=== PATIENT | female | born 1965 | race Caucasian/White ===

== ENCOUNTER 2019-07-30 22:09 | Emergency (ER) | payer MEDICAID, SELFPAY ==
[2019-07-30 22:11] VITALS: BP 149/91; PULSE 73; RESP 18; TEMP 37.1; O2SAT 98; BMI 31.3
--- NOTE | 2019-07-30 22:14 | XR_ITS ---
WS: [id number] LEFT HIP HISTORY: injury COMPARISON: 05/17/2015 LEFT hip: No acute fracture or dislocation. Marked acetabular osteophytic ridging. Narrowing of the j oint space with cortical irregularity. Similar findings seen on 05/17/2015. Mild LEFT SI joint arthritis. XR/XR hip LT 2-3V wo/w pel* [id number] IMPRESSION: 1. No hip fracture. 2. Moderate osteoarthritis LEFT hip.
--- NOTE | 2019-07-30 22:14 | XR_ITS ---
WS: [id number] LEFT SHOULDER: 3 VIEW(S) TECHNIQUE: Internal and external rotation with Y view. HISTORY: injury COMPARISON: None available. Seen best on the Y view is a possible nondisplaced fracture involving the posterior humeral head. Oth erwise no abnormality other than mild degenerative narrowing of the glenohumeral joint and AC joint. Visualized lung is clear. XR/XR shoulder LT min 2V* [id number] IMPRESSION: Possible small avulsion fracture from the posterior humeral head seen only on t he Y view.
--- NOTE | 2019-07-30 22:14 | XR_ITS ---
WS: [id number] LEFT KNEE: 3 VIEW(S) TECHNIQUE: AP, oblique(s) and lateral. HISTORY: injury COMPARISON: 06/17/2017 No fracture or dislocation. No joint space narrowing or osteophytes. No joint effusion. No soft tissue abnormality. XR/XR knee LT 3V* [id number] IMPRESSION: Normal LEFT knee.
[2019-07-30 22:16] VITALS: BP 149/91; PULSE 74; RESP 17; O2SAT 96
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
[2019-07-30 23:07] VITALS: BP 150/79; PULSE 76; RESP 17; O2SAT 96
[2019-07-30 23:56] VITALS: BP 179/99; PULSE 86; RESP 18; O2SAT 100
== END 2019-07-31 00:11 | disposition home or self-care (01) ==
PROVIDERS: Emergency Provider Emergency Medicine; PCP Internal Medicine
DX: S70.02XA Contusion of left hip, initial encounter (principal); V89.2XXA Person injured in unspecified motor-vehicle accident, traffic, initial encounter
CPT/HCPCS: 12345; 73030; 73502; 73562; 99283; E0114

== ENCOUNTER 2019-08-04 17:40 | Emergency (ER) | payer MEDICAID, SELFPAY ==
[2019-08-04 18:03] VITALS: BP 137/82; PULSE 69; RESP 18; TEMP 36.7; O2SAT 95; BMI 31.3
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
--- NOTE | 2019-08-04 22:13 | ED_ITS ---
HPI - Extremity Problem General: Chief complaint: Extremity Injury, Lower Stated complaint: Left knee pain Time Seen by Provider: 08/04/19 20:26 Source: patient Mode of arrival: wheelchair Limitations: no limitations PFSH ED PFSH: Social History (Updated 08/01/19 @ 09:39 by Chelsea Moore LPN) Smoking and tobacco status: never smoked Alcohol intake: current Alcohol intake frequency: few times a month Marital status: Current occupational status: disabled Course Vital Signs: Vital signs: Vital Signs Temperature 98.0 F 08/04/19 18:03 Pulse Rate 70 08/04/19 22:22 Respiratory Rate 16 08/04/19 22:22 Blood Pressure 137/82 08/04/19 18:03 Pulse Oximetry 96 08/04/19 22:22 Discharge Plan Discharge Patient Disposition: Home, Self-Care Clinical Impression: Contusion, knee Qualifiers: Encounter type: subsequent encounter Laterality: left Qualified Code(s): S80.02XD - Contusion of left knee, subsequent encounter Condition: Stable Prescriptions: New diclofenac sodium 3 % gel 1 applic TOPICAL BID Qty: 100 RF: 0 acetaminophen 500 mg tablet 500 mg PO Q6H PRN (Reason: pain) Qty: 20 RF: 0 naproxen sodium 275 mg tablet 275 mg PO Q8H 5 Days Qty: 15 RF: 0 Discontinued nxldvtk-lmzvihdmxddmj-eqpevpip Tablet 1 tab PO Q6H PRNRF: 0 naproxen 500 mg tablet 500 mg PO BID PRN (Reason: pain) Qty: 60 RF: 0 No Action tizanidine 4 mg capsule 4 mg PO BID PRN (Reason: muscle spasticity) Qty: 20 RF: 0 (DME) Knee Support Brace Misc See Rx Instructions .ROUTE .MEDSUPPLY Qty: 1 RF: 0 Referrals: Gurmeet Epstein MD [Primary Care Provider] - Ryan Butterfield MD [Physician] - 08/06/19 Discharge Diet: Advance as tolerated Discharge Activity: Resume usual activity Discharge Date/Time: 08/04/19 22:24 Coding Level of Care Code ED Corporate Coordinator for Mike Lin
[2019-08-04 22:22] VITALS: PULSE 70; RESP 16; O2SAT 96
--- NOTE | 2019-08-06 10:47 | DCPLANNER ---
horse farm manager had message to schedule a follow up appointment for patient with ortho. horse farm manager called the ortho clinic, spoke with Pat, gave clinic patients information. horse farm manager was told that patients information would be printed and reviewed. Clinic will call patient with appointment information.
--- NOTE | 2019-08-07 09:13 | DCPLANNER ---
Patient had a follow up appointment scheduled for 08.06.19 with ortho, patient did attend the appointment.
== END 2019-08-04 22:24 | disposition home or self-care (01) ==
PROVIDERS: Emergency Provider Nurse Practitioner Family; PCP Internal Medicine
DX: S80.02XA Contusion of left knee, initial encounter (principal); V89.2XXA Person injured in unspecified motor-vehicle accident, traffic, initial encounter
CPT/HCPCS: 12345; 73562; 99281; 99282

== ENCOUNTER → 2019-08-06 13:34 | Outpatient (BNVA) | payer MEDICAID, SELFPAY | PROVIDERS: PCP Internal Medicine; Referring Provider Emergency Medicine; Visit Provider Orthopaedic Surgery | DX: S70.02XA Contusion of left hip, initial encounter (principal); S46.912A Strain of unspecified muscle, fascia and tendon at shoulder and upper arm level, left arm, initial encounter; S33.5XXA Sprain of ligaments of lumbar spine, initial encounter; S13.4XXA Sprain of ligaments of cervical spine, initial encounter; X58.XXXA Exposure to other specified factors, initial encounter; S80.02XA Contusion of left knee, initial encounter | CPT/HCPCS: 72040; 72100; 73502 ==

== ENCOUNTER 2019-11-18 23:13 | Emergency (ER) | payer MEDICAID, SELFPAY ==
[2019-11-18 23:23] VITALS: BP 158/96; PULSE 64; RESP 18; TEMP 36.8; O2SAT 97; BMI 31.3
--- NOTE | 2019-11-18 23:41 | ECG_ITS ---
[facility] Test Date: 2019-11-18 Pat Name: Suzie Chun Department: Room: Gender: Female Cardiothoracic Icu Rn: wyatt : 1965 Requested By: Morgan Juárez Order Number: [id number] Estrada MD: Jennifer Beard M.D. Measurements Intervals [place] Rate: 58 P: 61 NV: 215 QRS: -12 QRSD: 92 T: 52 QT: 450 QTc: 446 Interpretive Statements SINUS BRADYCARDIA WITH FIRST DEGREE AV BLOCK Compared to ECG 08/18/2015 12:03:13 First degree AV block now present Sinus rhythm no longer present Electronically Signed On 11-19-2019 19:58:22 CDT by Jennifer Beard M.D. [id number]
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
--- NOTE | 2019-11-18 23:53 | ED_ITS ---
HPI - Chest Pain General: Chief Complaint: Chest Pain Stated Complaint: fell/r leg l arm back pain Time Seen by Provider: 11/18/19 23:40 History of Present Illness: HPI narrative: Patient was going down the steps of her trailer when she slipped and fell, scraping her left calf of the leg and hitting her left rib area. Patient appears well. Patient appears in mild to moderate pain. Review of Systems General: Reports: 10 or more systems reviewed and unremarkable except in HPI and below Musc: Reports: back pain and other (Left rib pain, chest wall pain, low back pain, left shoulder pain) PFSH ED PFSH: Social History Smoking and tobacco status: never smoked Alcohol intake: current Alcohol intake frequency: few times a month Marital status: Current occupational status: disabled Physical Exam Const: COMMON NORMALS: no acute distress and patient oriented x3 GENERAL APPEARANCE: cooperative HENMT: COMMON NORMALS: normocephalic, TM's normal bilaterally and Normal external nose present HEAD & SCALP: normal to inspection and normocephalic NOSE: Normal external nose present TYMPANIC MEMBRANE: TM's normal bilaterally MOUTH: Normal oral and palatal mucosa present THROAT: posterior oropharynx normal Eye: GENERAL EYE: appearance normal, both eyes and all related structures Neck/C-Spine: COMMON NORMALS: full ROM Lymph: LYMPHATIC: no lymphadenopathy noted Chest: OTHER: Left lateral chest wall tenderness Resp: COMMON NORMALS: normal respiratory effort EFFORT & INSPECTION: Yes able to speak in complete sentences Cardio: COMMON NORMALS: regular rate and regular rhythm RATE: regular rate RHYTHM: regular rhythm GI: COMMON NORMALS: non-tender Back/Pelvis: LUMBAR SPINE/LOWER BACK: Yes paraspinal muscle tenderness Extremity: NARRATIVE EXTREMITY EXAM: Abrasion to the left calf Neuro: COMMON NORMALS: patient oriented x3 and moves all extremities Psych: COMMON NORMALS: mental status grossly normal and cooperative Skin: COMMON NORMALS: no rashes or lesions noted GENERAL SKIN EXAM: no rashes or lesions noted Course Vital Signs: Vital signs: Vital Signs Temperature 98.2 F 11/18/19 23:23 Pulse Rate 70 11/19/19 00:14 Respiratory Rate 18 11/19/19 00:14 Blood Pressure 127/89 11/19/19 00:14 Pulse Oximetry 97 11/19/19 00:14 MDM - Chest Pain MDM Narrative: Medical decision making narrative: Medical decision statement. Patient comes in today for complaints of injury sustained when she got dizzy and slipped and fell down her steps. Patient reported low back pain, left rib pain, and left shoulder pain. EKG noted a sinus bradycardia. Vital signs were normal otherwise. Tenderness was noted in the left rib area. Some reduced abduction of the left shoulder was noted. Differential diagnosis includes but not limited to arrhythmia, electrolyte abnormality, contusions, fracture. X-rays noted no fractures of the lumbar spine, shoulder, and ribs. Laboratory values were unremarkable. Reviewed exam with patient with recommendations for treatment and follow-up. Patient reported understanding. Patient was given medication for pain and discomfort. Patient had improvement in symptoms. Lab Data: Labs: Lab Results 11/19/19 11/19/19 Range/Units 00:30 00:30 WBC 6.4 (4.0-10.0) 10^3/ uL RBC 4.46 (4.1-5.3) 10^6/u L Hgb 13.3 (11.5-15.3) g/dL Hct 40.6 (37.0-47.0) % MCV 91.0 (81-99) fL MCH 29.8 (28.0-34.0) pg MCHC 32.8 (30.0-36.0) g/dL RDW 12.4 (12.1-15.1) % Plt Count 179 (130-400) 10^3/c mm MPV 10.0 (7.4-10.4) fL Neut % (Auto) 66.1 % Lymph % (Auto) 20.8 % [place] % (Auto) 8.4 % Eos % (Auto) 3.9 % Baso % (Auto) 0.3 % Neut # (Auto) 4.23 (1.8-7.7) 10^3/u L Lymph # (Auto) 1.3 (0.8-4.8) 10^3/u L [place] # (Auto) 0.5 (0.2-0.9) 10^3/u L Eos # (Auto) 0.3 (0.0-0.8) 10^3/u L Baso # (Auto) 0.0 (0.0-0.1) 10^3/u L Nucleated RBC % (a uto) 0 % Nucleated RBCs # 0.0 /100WBC Sodium 142 (136-145) mmol/L Potassium 4.0 (3.5-5.1) mmol/L Chloride 104 (98-107) mmol/L Carbon Dioxide 25 (22-29) mmol/L Anion Gap 17.0 (5-19) BUN 11 (6-20) mg/dL Creatinine 0.7 (0.5-0.9) mg/dL GFR Calculation 87.2 L (90-130) mL/min Glucose 119 H (65-115) mg/dL Calculated Osmolal ity 295 (285-295) mOsm/k g Calcium 9.0 (8.5-10.5) mg/dL Total Bilirubin Cancelled AST Cancelled ALT Cancelled Alkaline Phosphata se Cancelled Total Protein Cancelled Albumin Cancelled Globulin Cancelled EKG Data^: EKG 1: Attestation: I personally reviewed and interpreted this EKG as follows: (2346, sinus bradycardia with a rate of 58 bpm, regular, no ectopy or ST elevation noted.) Discharge Plan Discharge Patient Disposition: Home Clinical Impression: Lumbar back pain Sprain of acromioclavicular joint Qualifiers: Encounter type: initial encounter Laterality: left Qualified Code(s): S43.52XA - Sprain of left acromioclavicular joint, initial encounter Contusion of rib on left side Qualifiers: Encounter type: initial encounter Qualified Code(s): S20.212A - Contusion of left front wall of thorax, initial encounter Condition: Stable Prescriptions: New diclofenac potassium 50 mg tablet 50 mg PO Q8H PRN (Reason: pain) Qty: 7 RF: 0 No Action tizanidine 4 mg capsule 4 mg PO BID PRN (Reason: muscle spasticity) Qty: 20 RF: 0 (DME) Knee Support Brace Misc See Rx Instructions .ROUTE .MEDSUPPLY Qty: 1 RF: 0 diclofenac sodium 3 % gel 1 applic TOPICAL BID Qty: 100 RF: 0 acetaminophen 500 mg tablet 500 mg PO Q6H PRN (Reason: pain) Qty: 20 RF: 0 Discharge Orders: Discharge Order (Routine); Ordered 11/19/19 Ordered By: Morgan Dhillon Referrals: Gurmeet Epstein MD [Primary Care Provider] - Discharge Diet: Usual diet Discharge Activity: Increase activity as tolerated Patient Instructions: Contusion in Adults (ED) Activity Restrictions/Additional Instructions: Activity as tolerated. Ice and heat to the area of pain for comfort. Use acetaminophen or ibuprofen for further pain relief. Use hydrocodone for severe pain. Follow-up with primary care for further treatment and evaluation. Return to the emergency department for new concerns. Coding Level of Care Code ED [place] Supervisor for Mike Fwnicolas Exam Comprehensive
[2019-11-19 00:14] VITALS: BP 127/89; PULSE 70; RESP 18; O2SAT 97
[2019-11-19] MEDS: ketorolac 30 mg/mL INJ IM (00:47)
[2019-11-19] MEDS: HYDROcodone-acetaminophen 5-325 mg Tablet 1 TAB PO (00:48)
[2019-11-19 00:52] LABS: Basophils % 0.3 %; Eosinophils # 0.3 10^3/uL (0.0-0.8); Eosinophils % 3.9 %; Hematocrit 40.6 % (37.0-47.0); Hemoglobin 13.3 g/dL (11.5-15.3); Lymphocytes # 1.3 10^3/uL (0.8-4.8); Lymphocytes % 20.8 %; Mean Corpuscular HGB Conc 32.8 g/dL (30.0-36.0); Mean Corpuscular Hemoglobin 29.8 pg (28.0-34.0); Monocytes # 0.5 10^3/uL (0.2-0.9); Monocytes % 8.4 %; Neutrophils # 4.23 10^3/uL (1.8-7.7); Neutrophils % 66.1 %; Nucleated Red Blood Cells % 0 %; Platelet Count 179 10^3/cmm (130-400); Red Blood Count 4.46 10^6/uL (4.1-5.3); Red Cell Distribution Width 12.4 % (12.1-15.1); White Blood Count 6.4 10^3/uL (4.0-10.0)
[2019-11-19 01:04] LABS: Blood Urea Nitrogen 11 mg/dL (6-20); Carbon Dioxide 25 mmol/L (22-29); Chloride 104 mmol/L (98-107); Glomerular Filtration Rate 87.2 mL/min (90-130); Glucose 119 mg/dL (65-115); Osmolality Calculated 295 mOsm/kg (285-295); Sodium 142 mmol/L (136-145)
[2019-11-19 01:26] VITALS: BP 148/92; PULSE 68; RESP 16; TEMP 36.9; O2SAT 99
== END 2019-11-19 01:26 | disposition home or self-care (01) ==
PROVIDERS: Emergency Provider Nurse Practitioner Family; PCP Internal Medicine
DX: S20.212A Contusion of left front wall of thorax, initial encounter (principal); S43.52XA Sprain of left acromioclavicular joint, initial encounter; M54.5 Low back pain; W01.0XXA Fall on same level from slipping, tripping and stumbling without subsequent striking against object, initial encounter
CPT/HCPCS: 12345; 71101; 72100; 73030; 80048; 85025; 93005; 96372; 99281; 99283; J1885

== ENCOUNTER 2019-11-30 02:44 | Emergency (ER) | payer MEDICAID, SELFPAY ==
[2019-11-30] VITALS (7 sets, daily range): BP systolic 158–168; BP diastolic 82–101; PULSE 72–84; RESP 16–20; TEMP 36.9–37.3; O2SAT 92–95; BMI 31.3
--- NOTE | 2019-11-30 02:45 | XRR_ITS ---
PROCEDURE INFORMATION: Exam: XR Chest, 1 View Exam date and time: 11/30/2019 2:54 AM Age: 54 years old Clinical indication: Cough and shortness of breath; Additional info: Cough, SOB, chest pain TECHNIQUE: Imaging protocol: XR of the chest Views: 1 view. COMPARISON: CR XR ribs LT mn 3V w CXR1V [id number] 11/18/2019 11:59 PM FINDINGS: Lungs: Unremarkable. No consolidation. Pleural space: Unremarkable. No pleural effusion. No pneumothorax. Heart/Mediastinum: Unremarkable. No cardiomegaly. Bones/joints: Unremarkable. XR/XR chest 1V portable [id number] IMPRESSION: No acute findings.
--- NOTE | 2019-11-30 02:51 | ECG_ITS ---
[facility] Test Date: 2019-11-30 Pat Name: Suzie Chun Department: Room: Gender: Female Business Administration Teacher: : 1965 Requested By: Marcelo Brand Order Number: [id number] Sean MD: Blu Eric M.D. Measurements Intervals [place] Rate: 79 P: 56 MO: 190 QRS: -13 QRSD: 90 T: 64 QT: 382 QTc: 438 Interpretive Statements SINUS RHYTHM Compared to ECG 11/18/2019 23:46:23 Sinus bradycardia no longer present First degree AV block no longer present Electronically Signed On 11-30-2019 20:27:59 CDT by Blu Eric M.D. [email or web address] Enterprisesmercy [email or web address] [email or web address].[email or web address]/store/[id number]
--- NOTE | 2019-11-30 03:02 | W.ED.SOB ---
HPI - SOB/Dyspnea General: Chief Complaint: Shortness of Breath/Dyspnea Stated Complaint: cough/cp Time Seen by Provider: 11/30/19 02:46 Source: patient Mode of arrival: ambulatory Limitations: no limitations History of Present Illness: HPI Narrative: 54-year-old female states that she has been having cough along with wheezing along with some shortness of breath and nasal congestion over the last 3 to 4 days. She had low-grade fevers as well. She states she gets this every yea and does have a history of asthma. Patient states she is on steroids along with albuterol. She denies any worsening improving factors. She has had no known sick contacts. Associated symptoms: Reports fever(s); Deny abdominal pain, chest pain, nausea or vomiting Review of Systems Const: Reports: fever(s), chills and body aches Eyes: Denies: blurry vision or eye discomfort ENMT: Denies: throat pain or dental pain Card: Denies: chest pain Resp: Reports: dyspnea, non-productive cough and wheezing GI: Denies: abdominal pain, nausea, vomiting or diarrhea : Denies: dysuria Musc: Denies: neck pain or back pain Skin/Breast: Denies: rash Neuro: Denies: headache(s) Psych: Denies: depression David/Lymph: Denies: easy bruising All/Imm: Denies: urticaria PFSH ED PFSH: Social History Smoking and tobacco status: never smoked Alcohol intake: current Alcohol intake frequency: few times a month Marital status: Current occupational status: disabled Physical Exam Const: COMMON NORMALS: no acute distress, patient oriented x3 and healthy appearing HENMT: COMMON NORMALS: normocephalic and atraumatic HEAD & SCALP: normocephalic and atraumatic Eye: COMMON NORMALS: Equal, round and reactive pupils present and EOMs intact bilaterally PUPIL: Yes Equal, round and reactive pupils present Neck/C-Spine: COMMON NORMALS: full ROM and supple Chest: COMMONS NORMALS: normal inspection of the chest and normal palpation of entire chest wall Resp: COMMON NORMALS: normal respiratory effort, No retractions and No use of accessory muscles EFFORT & INSPECTION: Yes audible wheezes Cardio: COMMON NORMALS: regular rate, regular rhythm and No murmurs present (Cardio) RATE: regular rate RHYTHM: regular rhythm GI: COMMON NORMALS: Normal to inspection, nondistended, normoactive bowel sounds present, Soft to palpation, non-tender and no masses PALPATION: Yes Soft to palpation Extremity: COMMON NORMALS: normal to inspection and full ROM Neuro: COMMON NORMALS: patient oriented x3, moves all extremities and no focal motor deficits Psych: COMMON NORMALS: mental status grossly normal, Normal thought process present and cooperative THOUGHT PROCESS: Normal thought process present Skin: COMMON NORMALS: no rashes or lesions noted and no wounds GENERAL SKIN EXAM: no rashes or lesions noted Course Vital Signs: Vital signs: Vital Signs Temperature 99.1 F 11/30/19 02:47 Pulse Rate 75 11/30/19 05:00 Respiratory Rate 16 11/30/19 05:00 Blood Pressure 163/101 11/30/19 05:00 Pulse Oximetry 93 11/30/19 05:00 MDM - SOB/Dyspnea MDM Narrative: Medical decision making narrative: Suzie presents with cough congestion likely upper respiratory infection with asthma exacerbation. X-ray shows no pneumonia and blood work here is normal. She has no signs of pulmonary embolism. Patient's Covid is negative. Patient given IV steroids here and will prescribe albuterol for home. Patient is stable for discharge and return if worsening. Lab Data: Labs: Lab Results 11/30/19 11/30/19 11/30/19 Range/Units 03:30 03:30 03:30 WBC (4.0-10.0) 10^3/ uL RBC (4.1-5.3) 10^6/u L Hgb (11.5-15.3) g/dL Hct (37.0-47.0) % MCV (81-99) fL MCH (28.0-34.0) pg MCHC (30.0-36.0) g/dL RDW (12.1-15.1) % Plt Count (130-400) 10^3/c mm MPV (7.4-10.4) fL Neut % (Auto) % Lymph % (Auto) % [place] % (Auto) % Eos % (Auto) % Baso % (Auto) % Neut # (Auto) (1.8-7.7) 10^3/u L Lymph # (Auto) (0.8-4.8) 10^3/u L [place] # (Auto) (0.2-0.9) 10^3/u L Eos # (Auto) (0.0-0.8) 10^3/u L Baso # (Auto) (0.0-0.1) 10^3/u L Nucleated RBC % (a uto) % Nucleated RBCs # /100WBC Sodium (136-145) mmol/L Potassium (3.5-5.1) mmol/L Chloride (98-107) mmol/L Carbon Dioxide (22-29) mmol/L Anion Gap (5-19) BUN (6-20) mg/dL Creatinine (0.5-0.9) mg/dL GFR Calculation (90-130) mL/min Glucose (65-115) mg/dL Calculated Osmolal ity (285-295) mOsm/k g Calcium (8.5-10.5) mg/dL Total Bilirubin (0.15-1.2) mg/dL AST (0-32) U/L ALT (0-33) U/L Alkaline Phosphata se (35-105) IU/L Troponin T Baselin e (0-10) ng/L NT-Pro-B Natriuret Pep (0-125) pg/mL Total Protein (6.6-8.7) g/dL Albumin (3.5-5.2) g/dL Globulin (1.3-4.6) g/dL Influenza Type A A g Negative (Negative) Influenza Type B A g Negative (Negative) SARS-CoV-2 RNA (RT -PCR) Cancelled SARS-CoV-2 Ag (Rap id) Negative (Negative) 11/30/19 11/30/19 11/30/19 Range/Units 03:45 03:45 03:45 WBC 6.3 (4.0-10.0) 10^3/ uL RBC 4.32 (4.1-5.3) 10^6/u L Hgb 12.8 (11.5-15.3) g/dL Hct 39.8 (37.0-47.0) % MCV 92.1 (81-99) fL MCH 29.6 (28.0-34.0) pg MCHC 32.2 (30.0-36.0) g/dL RDW 12.5 (12.1-15.1) % Plt Count 126 L (130-400) 10^3/c mm MPV 11.1 H (7.4-10.4) fL Neut % (Auto) 76.0 % Lymph % (Auto) 11.4 % [place] % (Auto) 11.0 % Eos % (Auto) 0.9 % Baso % (Auto) 0.2 % Neut # (Auto) 4.82 (1.8-7.7) 10^3/u L Lymph # (Auto) 0.7 L (0.8-4.8) 10^3/u L [place] # (Auto) 0.7 (0.2-0.9) 10^3/u L Eos # (Auto) 0.1 (0.0-0.8) 10^3/u L Baso # (Auto) 0.0 (0.0-0.1) 10^3/u L Nucleated RBC % (a uto) 0 % Nucleated RBCs # 0.0 /100WBC Sodium 140 (136-145) mmol/L Potassium 4.0 (3.5-5.1) mmol/L Chloride 104 (98-107) mmol/L Carbon Dioxide 25 (22-29) mmol/L Anion Gap 15.0 (5-19) BUN 9 (6-20) mg/dL Creatinine 0.6 (0.5-0.9) mg/dL GFR Calculation 104.2 (90-130) mL/min Glucose 110 (65-115) mg/dL Calculated Osmolal ity 289 (285-295) mOsm/k g Calcium 8.8 (8.5-10.5) mg/dL Total Bilirubin 0.4 (0.15-1.2) mg/dL AST 25 (0-32) U/L ALT 17 (0-33) U/L Alkaline Phosphata se 108 H (35-105) IU/L Troponin T Baselin e 6 (0-10) ng/L NT-Pro-B Natriuret Pep 149 H (0-125) pg/mL Total Protein 7.0 (6.6-8.7) g/dL Albumin 4.2 (3.5-5.2) g/dL Globulin 2.8 (1.3-4.6) g/dL Influenza Type A A g (Negative) Influenza Type B A g (Negative) SARS-CoV-2 RNA (RT -PCR) SARS-CoV-2 Ag (Rap id) (Negative) Imaging Data^: CXR: Attestation: I personally reviewed and interpreted this imaging study as follows: My impression: no acute abnormality EKG Data^: EKG 1: Attestation: I personally reviewed and interpreted this EKG as follows: EKG Interpretation Date: 11/30/19 EKG interpretation time: 03:10 Interpretation: nsr hr [address] or t wave abnormalities qrs 90 qtc 416 EKG 2: Attestation: I personally reviewed and interpreted this EKG as follows: EKG Interpretation Date: 11/30/19 EKG interpretation time: 05:04 Interpretation: nsr hr [address] or t wave abnormalities qrs 93 qtc 418 Discharge Plan Discharge Patient Disposition: Home Clinical Impression: Acute upper respiratory infection Condition: Stable Prescriptions: New prednisone 50 mg tablet 50 mg PO DAILY Qty: 5 RF: 0 albuterol sulfate 90 mcg/actuation HFA aerosol inhaler 2 inh INHALATION Q6H PRN (Reason: shortness of breath or wheezing) Qty: 8 RF: 0 No Action tizanidine 4 mg capsule 4 mg PO BID PRN (Reason: muscle spasticity) Qty: 20 RF: 0 (DME) Knee Support Brace Misc See Rx Instructions .ROUTE .MEDSUPPLY Qty: 1 RF: 0 diclofenac sodium 3 % gel 1 applic TOPICAL BID Qty: 100 RF: 0 acetaminophen 500 mg tablet 500 mg PO Q6H PRN (Reason: pain) Qty: 20 RF: 0 diclofenac potassium 50 mg tablet 50 mg PO Q8H PRN (Reason: pain) Qty: 7 RF: 0 Discharge Orders: Discharge Order (Routine); Ordered 11/30/19 Ordered By: Marcelo Brand Referrals: Gurmeet Epstein MD [Primary Care Provider] - 1-3 days Discharge Diet: Advance as tolerated Discharge Activity: Resume usual activity Patient Instructions: Upper Respiratory Infection (ED) Coding Level of Care Code ED Supervisor [employer] for Chg Fwd Exam Comprehensive
[2019-11-30] MEDS: albuterol 8 gm MDI 2 PUFF INHALATION (03:10)
[2019-11-30] MEDS: dexamethasone 10 mg/mL INJ IVP (04:16)
[2019-11-30 04:30] LABS: Basophils % 0.2 %; Eosinophils # 0.1 10^3/uL (0.0-0.8); Eosinophils % 0.9 %; Hematocrit 39.8 % (37.0-47.0); Hemoglobin 12.8 g/dL (11.5-15.3); Lymphocytes # 0.7 10^3/uL (0.8-4.8); Lymphocytes % 11.4 %; Mean Corpuscular HGB Conc 32.2 g/dL (30.0-36.0); Mean Corpuscular Hemoglobin 29.6 pg (28.0-34.0); Mean Corpuscular Volume 92.1 fL (81-99); Mean Platelet Volume 11.1 fL (7.4-10.4); Monocytes # 0.7 10^3/uL (0.2-0.9); Neutrophils # 4.82 10^3/uL (1.8-7.7); Nucleated Red Blood Cells % 0 %; Platelet Count 126 10^3/cmm (130-400); Red Blood Count 4.32 10^6/uL (4.1-5.3); Red Cell Distribution Width 12.5 % (12.1-15.1); White Blood Count 6.3 10^3/uL (4.0-10.0)
--- NOTE | 2019-11-30 04:51 | ECG_ITS ---
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 Measurements Intervals [place] Rate: 69 P: 55 CT: 195 QRS: -6 QRSD: 93 T: 56 QT: 399 QTc: 429 Interpretive Statements SINUS RHYTHM Compared to ECG 11/30/2019 03:10:06 No significant changes Electronically Signed On 11-30-2019 20:37:01 CDT by Blu Eric M.D. [email or web address]
[2019-11-30 04:57] LABS: Influenza A by IFA Negative (Negative); Influenza B by IFA Negative (Negative)
[2019-11-30 04:58] LABS: Troponin(5th) Baseline 6 ng/L (0-10)
[2019-11-30 05:05] LABS: Alanine Aminotransferase 17 U/L (0-33); Albumin Level 4.2 g/dL (3.5-5.2); Alkaline Phosphatase 108 IU/L (35-105); Blood Urea Nitrogen 9 mg/dL (6-20); Calcium 8.8 mg/dL (8.5-10.5); Carbon Dioxide 25 mmol/L (22-29); Chloride 104 mmol/L (98-107); Globulin 2.8 g/dL (1.3-4.6); Glomerular Filtration Rate 104.2 mL/min (90-130); Glucose 110 mg/dL (65-115); NT Pro B Type Natriuretic Pept 149 pg/mL (0-125); Osmolality Calculated 289 mOsm/kg (285-295); Sodium 140 mmol/L (136-145); Total Bilirubin 0.4 mg/dL (0.15-1.2)
[2019-11-30] MEDS: acetaminophen 500 mg Tablet 1000 MG PO (05:05)
--- NOTE | 2019-11-30 05:07 | PC.NURSE ---
EKG done at 0505 and shown to ER doctor
[2019-11-30 05:09] LABS: SARS Covid-2 Antigen Negative (Negative)
[2019-11-30 05:20] LABS: Aspartate Amino Transferase 25 U/L (0-32)
[2019-11-30] MEDS: metoclopramide 5 mg/mL SDV 2 mL IVP (05:30)
[2019-11-30] MEDS: diphenhydrAMINE 50 mg/mL SDV 1mL 25 MG IVP (05:31)
== END 2019-11-30 05:48 | disposition home or self-care (01) ==
PROVIDERS: Emergency Provider Emergency Medicine; PCP Internal Medicine
DX: J06.9 Acute upper respiratory infection, unspecified (principal)
CPT/HCPCS: 12345; 71045; 80053; 83880; 84484; 85025; 87426; 87804; 93005; 94640; 96374; 96375; 99284; J1100; J1200; J2765; J3535

== ENCOUNTER 2019-12-10 09:07 | Emergency (ER) | payer MEDICAID, SELFPAY ==
[2019-12-10 09:13] VITALS: BP 158/103; PULSE 71; RESP 15; TEMP 36.6; O2SAT 97; BMI 69.0
[2019-12-10 09:21] VITALS: BP 157/103; PULSE 81; RESP 18; O2SAT 97
--- NOTE | 2019-12-10 09:25 | XRR_ITS ---
PROCEDURE INFORMATION: Exam: XR Chest, 1 View Exam date and time: 12/10/2019 9:27 AM Age: 54 years old Clinical indication: Cough and dyspnea and shortness of breath; Cough with hemorrhage; Left-sided chest pain; Prior surgery; Surgery type: Gb, hysto; Additional info: Dyspnea/cough/hemoptysis TECHNIQUE: Imaging protocol: XR of the chest Views: Frontal portable upright view of the chest. COMPARISON: CR XR chest 1V portable [id number] 11/30/2019 3:10 AM FINDINGS: Lungs: The lungs are clear bilaterally. The pulmonary vasculature is normal. Pleural space: No pleural effusion. No pneumothorax. Heart/Mediastinum: The heart is normal in size and contour. Mediastinum: Stable. Vasculature: Mild aortic arch atherosclerotic calcification without ectasia. Bones/joints: Stable. XR/XR chest 1V portable [id number] IMPRESSION: No acute cardiopulmonary abnormality identified.
--- NOTE | 2019-12-10 09:46 | ECG_ITS ---
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
--- NOTE | 2019-12-10 09:47 | CT_ITS ---
WS: [id number] CT NECK TECHNIQUE: Noncontrast CT of the neck with coronal and sagittal reformatted images. CLINICAL INFORMATION: neck pain COMPARISON: DLP: 652.[address] scans at [facility] use at least one of these dose optimization techniques: automat ed exposure control; mA and/or kV adjustment per patient size (includes targeted exams where dose is matched to clinical indication); or iterative reconstruction. FINDINGS: Parotid glands and submandibular glands are normal. Normal posterior nasopharynx. Normal parapharynge al fat. Tongue base appears normal. No evidence of supraglottic or glottic mass. Normal vallecula and piriform sinuses. Infraglottic airway is patent. Noncontrast thyroid gland appears normal. A few sli ghtly prominent but normal sized left cervical lymph nodes. No cervical lymphadenopathy. No supraclavicular lymphadenopathy. Lung apices are well aerated. Mastoi d air cells are well aerated. Left maxillary sinusitis with a small amount of fluid and mucosal thick ening left maxillary sinus. Partially visualized intracranial contents are unremarkable. CT/CT neck wo con [id number] IMPRESSION: 1. Salivary glands are normal. No evidence of supraglottic or glottic mass. 2. No cervical lymphadenopathy. A few slightly prominent but normal sized left cervical lymph nodes. 3. Mild left maxillary sinusitis. 4. No other significant findings. Notified Brent Mckeon DO at 12/10/2019 10:20 AM.
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
[2019-12-10 09:52] LABS: Basophils # 0.1 10^3/uL (0.0-0.1); Basophils % 0.6 %; Eosinophils # 0.2 10^3/uL (0.0-0.8); Eosinophils % 2.2 %; Hematocrit 43.8 % (37.0-47.0); Lymphocytes % 10.8 %; Mean Corpuscular Hemoglobin 29.6 pg (28.0-34.0); Mean Corpuscular Volume 92.6 fL (81-99); Mean Platelet Volume 9.7 fL (7.4-10.4); Monocytes # 0.6 10^3/uL (0.2-0.9); Monocytes % 5.7 %; Neutrophils # 7.56 10^3/uL (1.8-7.7); Neutrophils % 78.4 %; Nucleated Red Blood Cells % 0 %; Platelet Count 213 10^3/cmm (130-400); Red Blood Count 4.73 10^6/uL (4.1-5.3); Red Cell Distribution Width 12.5 % (12.1-15.1); White Blood Count 9.6 10^3/uL (4.0-10.0)
[2019-12-10 10:05] LABS: INR 0.96 (0.8-1.2)
[2019-12-10 10:11] LABS: Alanine Aminotransferase 20 U/L (0-33); Albumin Level 4.1 g/dL (3.5-5.2); Alkaline Phosphatase 112 IU/L (35-105); Anion Gap 12.1 (5-19); Aspartate Amino Transferase 15 U/L (0-32); Blood Urea Nitrogen 17 mg/dL (6-20); Calcium 9.4 mg/dL (8.5-10.5); Carbon Dioxide 29 mmol/L (22-29); Chloride 101 mmol/L (98-107); Globulin 3.3 g/dL (1.3-4.6); Glomerular Filtration Rate 87.2 mL/min (90-130); Glucose 96 mg/dL (65-115); Osmolality Calculated 287 mOsm/kg (285-295); Potassium 4.1 mmol/L (3.5-5.1); Sodium 138 mmol/L (136-145); Total Bilirubin 0.3 mg/dL (0.15-1.2); Total Protein 7.4 g/dL (6.6-8.7)
--- NOTE | 2019-12-10 10:19 | CT_ITS ---
WS: [id number] CT CERVICAL SPINE TECHNIQUE: Noncontrast CT of the cervical spine with coronal and sagittal reformatted images. CLINICAL INFORMATION: cervical radiculopathy COMPARISON: None. DLP: 646.[address] scans at [facility] use at least one of these dose optimization techniques: automat ed exposure control; mA and/or kV adjustment per patient size (includes targeted exams where dose is matched to clinical indication); or iterative reconstruction. FINDINGS: Slight exaggeration normal cervical lordosis. No high-grade central canal narrowing. C2-C3: Normal. C3-C4: Severe left bony foraminal narrowing. Moderate left facet arthropathy. Mild right foraminal na rrowing. C4-C5: Disc osteophytic ridging. Severe right and moderate to severe left bony foraminal narrowing. M oderate facet arthropathy. Spinal canal is patent. C5-C6: Disc osteophyte complex with a tiny central protrusion. Moderate to severe left and mild to mo derate right bony foraminal narrowing. Moderate facet arthropathy. Mild central canal stenosis. C6-C7: Disc osteophyte complex with endplate ridging. Moderate to severe bilateral bony foraminal gomez rowing. Mild to moderate facet arthropathy. Mild central canal stenosis. C7-T1: Normal Visualized posterior nasopharynx: Normal. Prevertebral soft tissues: Normal. CT/CT cervical spin wo con* [id number] IMPRESSION: 1. Slight exaggeration the normal cervical lordosis. No high-grade central can al narrowing. 2. Moderate to severe bony foraminal narrowing worse at left C3-C4, bilateral C4-5, left C5-C6, and bilateral C6-7. 3. Small central disc protrusion C5-C6 and C6-C7 with mild central canal steno sis.
--- NOTE | 2019-12-10 10:26 | PC.NURSE ---
Read and agree with assessment.
[2019-12-10 12:17] VITALS: BP 140/80; PULSE 75; RESP 15; O2SAT 98
[2019-12-10] MEDS: dexamethasone 4 mg/mL INJ 10 MG IM (12:17)
== END 2019-12-10 12:18 | disposition home or self-care (01) ==
PROVIDERS: Emergency Provider Family Medicine; PCP Internal Medicine
DX: M50.10 Cervical disc disorder with radiculopathy, unspecified cervical region (principal); R04.0 Epistaxis; J44.9 Chronic obstructive pulmonary disease, unspecified
CPT/HCPCS: 12345; 70490; 71045; 72125; 80053; 85025; 85610; 93005; 96372; 96375; 99282; 99283; J1100

== ENCOUNTER → 2019-12-18 14:43 | Outpatient (BNVA) | payer MEDICAID, SELFPAY | PROVIDERS: PCP Internal Medicine; Referring Provider Internal Medicine; Visit Provider Orthopaedic Surgery | DX: S42.293A Other displaced fracture of upper end of unspecified humerus, initial encounter for closed fracture (principal); X58.XXXA Exposure to other specified factors, initial encounter | CPT/HCPCS: 73030 ==

== ENCOUNTER 2019-12-31 14:32 | Outpatient (CLI) | payer MEDICAID, SELFPAY ==
--- NOTE | 2019-12-31 17:30 | MR_ITS ---
WS: [id number] MRI LEFT SHOULDER HISTORY: M79.622 - Pain in left upper arm COMPARISON: Shoulder radiograph 12/18/2019. TECHNIQUE: Multiplanar sequences of the shoulder joint are submitted. Mild AC joint bone and soft tissue hypertrophy. Small hypertrophic osteophytes and soft tissue encroa chment upon the supraspinatus tendon with minimal displacement. Narrowing of the AC joint with osteop hytes. There is an osteophyte from the undersurface of the acromion encroaching upon the supraspinatu s muscle over the humeral head. Hooklike osteophyte measures 3.2 mm with complete effacement of fat. There is adjacent subacromial fluid and increased signal within the supraspinatus tendon. No os acrom ion. Abnormal appearance of the biceps tendon in the bicipital groove. There is abnormal signal and s mall caliber biceps tendon. Abnormal signal in the distal 3 cm of the supraspinatus tendon. Increased signal due to the acromial osteophyte. Supraspinatus insertion site tear is moderate in size. Tear extends through the width of the tendon and there is fraying of the distal articular surface. There is also fraying along the burs al surface. Quality of the tendon distal to the acromial osteophyte is decreased. Mild atrophy of the supraspinatus muscle with no edema. Insertion site tear of the subscapularis tendon with additional fraying and tendinopathy. No atrophy. Subscapularis recess fluid. There are tiny loose bodies within the fluid. Infraspinatus tendon is pr obably intact. Cannot completely exclude small insertion site tear. There is loss of cartilage involving the humeral head irregularity of the cortical surface. Narrowing of the glenohumeral joint is mild. No definite labral tear. MR/MR shoulder LT wo con* [id number] IMPRESSION: 1. Hooklike osteophyte from the undersurface of acromion encroaching and impin ging upon the supraspinatus muscle and tendon. 2. Moderate insertion site tear of the supraspinatus tendon with a full-thickn ess tear and moderate tendinopathy. 3. Mild atrophy of the supraspinatus muscle without edema. 4. Insertion site tear subscapularis tendon is small. Possible insertion site tear of the infraspinatus tendon. 5. Loss of cartilage with subchondral cystic changes involving the humeral hea d. 6. Abnormal biceps tendon. Small caliber biceps tendon with abnormal signal is probably due to chronic tear and tendinopathy at the bicipital groove.
== END 2019-12-31 14:33 | disposition home or self-care (01) ==
LOC: RADSHAW 14:34
PROVIDERS: PCP Internal Medicine; Visit Provider Orthopaedic Surgery
DX: M25.712 Osteophyte, left shoulder (principal); M75.102 Unspecified rotator cuff tear or rupture of left shoulder, not specified as traumatic; R60.0 Localized edema
CPT/HCPCS: 73221

== ENCOUNTER → 2020-02-09 09:40 | Outpatient (BNVA) | payer MEDICAID, SELFPAY | PROVIDERS: PCP Internal Medicine; Visit Provider Orthopaedic Surgery | DX: Z01.812 Encounter for preprocedural laboratory examination (principal); Z20.828 Contact with and (suspected) exposure to other viral communicable diseases | CPT/HCPCS: 87635 ==

== ENCOUNTER 2020-02-14 06:09 | Day surgery (SDC) | payer MEDICAID, SELFPAY ==
[2020-02-13 12:06] VITALS: BMI 31.3
[2020-02-14] VITALS (11 sets, daily range): BP systolic 109–144; BP diastolic 66–103; PULSE 65–83; RESP 12–20; TEMP 36.2–36.6; O2SAT 94–100
[2020-02-14] MEDS: acetaminophen 500 mg Tablet 1000 MG PO (06:43)
[2020-02-14] MEDS: sodium chloride 0.9% 1,000 ML 30 ML IV (06:45)
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
[2020-02-14] MEDS: fentaNYL 50 mcg/mL INJ 2mL 100 MCG IVP (07:11)
--- NOTE | 2020-02-14 08:25 | ANES.PREANE2 ---
Pre-Anesthetic Assessment Pre-Anesthetic Assessment: Height/Weight: Height 1.7 m Weight 90.718 kg Temp Pulse Resp BP Pulse Ox 97.7 F 69 16 133/103 95 02/14/20 06:27 02/14/20 06:27 02/14/20 07:11 02/14/20 06:27 02/14/20 07:11 Preop Diagnosis: Rotator cuff tear left shoulder, impingement Proposed Procedure: Operation Date: 02/14/20 07:45 Proposed Procedures p left Shoulder Arthroscopy [id number] M75.102(Left) - Ryan Butterfield MD s Rotator Cuff Repair w/Subacromial Decompression(Left) - Ryan Butterfield MD Familial anesthetic complications: None Was Beta Meggan taken within 24 hours: N/A Last intake: Intake Last Liquid Date 02/13/20 Last Liquid Time 23:55 Last Solid Date 02/13/20 Last Solid Time 23:55 Social: Social History: No alcohol and No tobacco Exam: Pre-Anes Outpt Exam: alert, oriented x 3, clear to auscultation bilaterally and regular rate & rhythm Airway: Cervical ROM: WNL MP: 3 Dentition: Full Pulmonary: Pulmonary: Asthma and COPD Comments: hx bronchitis patient informed of increased risk of SOB w/ insterscalene CV/HEM: CV/HEM: HTN and WI (> 15 years ago) Comments: Mitral valve prolapse Patient states she 4x before, but says it was a long time ago and is unable to provide further details, other than they shocked her. Neuropsych: Neuropsych: Seizure and TIA Anesthetic Plan: ASA status: 3 Anesthesia: General and Regional (specify below) Other: Interscalene block (low volume) Risk of > 500 ml blood loss (7ml/kg in children): No Meds/Allergies Current Medications: Current Medications Generic Name Dose Route Start Last Admin Trade Name Freq PRN Reason Stop Dose Admin Sodium Chloride 1,000 mls @ 30 ml s/hr 02/14/20 06:15 02/14/20 06:45 Sodium Chloride 0.9% IV 02/15/20 06:14 30 mls/hr .Q24H ARNOLD Administration PFSH Anesthesia PFSH: Medical History COPD (chronic obstructive pulmonary disease) Social History Smoking and tobacco status: never smoked Alcohol intake: current Alcohol intake frequency: few times a month Marital status: Current occupational status: disabled History of recent travel: No Data Anesthesia Cardiac Studies: No Data to Display
--- NOTE | 2020-02-14 08:28 | ANES.PROC ---
Anesthesia Procedures Procedure/Date: 02/14/20 Nerve Block ^: Nerve Block 1: Main Anesthesia: general anesthesia Time Out Performed: Yes Consent: requested by attending/covering physician, from patient, from other, risks and benefits reviewed, patient agrees to proceed and emergency procedure Nerve block location: interscalene (L) Anesthesia monitors applied: pulse oximetry, EKG, BP cuff and oxygen Nerve block position: semi sitting Anesthetic Used: ropivicaine 0.5% and with decadron (1.3 mg) Amount of anesthesia used (mL): 10 Ultrasound used to: visualize and ID brachial plexus and visualize and ID interscalene groove Nerve Stimulator Used?: No Interscalene/Femoral BLK: 2 stimuplex 22 g needle used for position and inplane approach, visualize local anesthetic spread and no vascular puncture identified Injection: neg aspiration of heme and paresthesia +/- Patient Tolerated Procedure: well and no complications Complications: none
--- NOTE | 2020-02-14 10:22 | P.OP_ITS ---
Operative Report Date of procedure: February 14, 2020 Pre-op Diagnosis: Rotator cuff tear left shoulder, impingement Post-op diagnosis: same Post-op Findings: Same Procedure Done: Arthroscopic repair left rotator cuff, arthroscopic left subacromial decompression Implants: Masters and Nephew Helicoil 4.5 mm anchors with Ultrabraid x2, Masters and Nephew Helicoil knotless anchor x2 Pathology: none sent Surgeon: Ryan Butterfield Anesthesia: General and Nerve Block (Interscalene block) Estimated blood loss (mL): 20 Findings: The patient had a full-thickness tear of the supraspinatus tendon beginning at the anterior tendon insertion extending posteriorly approximately a centimeter and a half with approximately a centimeter and a half of tendon retraction. Tendon and bone quality was excellent. Condition: stable Disposition: PACU Procedure: The patient was taken to the operating room after she was given an interscalene block. She was given a general anesthesia and 2 g of Ancef. She was positioned in the lateral position with her left arm in 10 and later 20 pounds of traction due to its size. Posterior portal was made 2 cm inferior medial to the posterior lateral acromion. A scope cannula and trocar driven into the glenohumeral joint. An anterior working portal was made with a scalpel blade. The rotator cuff was inspected and the full-thickness tearing identified. The humeral head and glenoid were visualized and found to be free of degeneration. Labral attachments were healthy. The biceps tendon was absent. The scope was then moved to the subacromial space and the lateral portal performed to allow access to the cuff. Additional cannula was placed to the anterior portal. She had a very tight subacromial space with anterior curvatures to her acromion. A 5 5 acromionizer was introduced and approxi-5 mm of anterior and inferior acromion were removed to allow room for the repair and minimize compression on the rotator cuff repair. Utilizing an incisor shaver the footprint was debrided. Through a lateral stab wound a Masters and Nephew Helicoil 4.5 mm anchor with Ultratape was placed in the posterior medial footprint. The Masters and Nephew FirstPass suture passer was used to pass 1 limb through the posterior medial cuff tear approximately 7 mm from the edge and the second free suture approximately 5 mm anterior to that. A second anchor was placed in the anterior medial footprint and 2 sutures passed in identical fashion. Each suture was secured with a sliding Callahan knot and a single half hitch bringing the medial cuff to the medial debrided bone. One suture from each anchor was then passed through the lateral portal. Both sutures were passed through a Masters and Nephew Helicoil knotless anchor and the anchor placed on the posterior lateral edge of the footprint. This was repeated with the 2 remaining sutures with a knotless anchor placed in the anterior la teral footprint. The repair was probed and found to be stable. The shoulder was irrigated with saline. Portals were closed with 3-0 Prolene. Sterile dressings were applied. The patient was placed in a sling, extubated, and taken to recovery room in stable condition.
[2020-02-14] MEDS: oxyCODONE-APAP 5-325 mg Tablet 1 TAB PO (11:00)
--- NOTE | 2020-02-14 19:33 | ANE.PACU2 ---
Inpatient post-anesthesia follow up: Airway intact: Yes Vital signs: Temperature 97.8 F Pulse Rate 68 Respiratory Rate 16 Blood Pressure 113/75 Pulse Oximetry 95 Oxygen Delivery Me thod Room Air Oxygen Flow Rate 10 Fraction of Inspir ed Oxygen Hydration adequate: Yes Nausea and vomiting: No Pain level: 3 Mental status: Baseline
== END 2020-02-14 11:55 | disposition home or self-care (01) ==
PROVIDERS: PCP Internal Medicine; Visit Provider Orthopaedic Surgery
PROC: (CPT 29805; principal; 2020-02-14 07:45)
PROC: (CPT 29826; 2020-02-14 07:45)
DX: M75.102 Unspecified rotator cuff tear or rupture of left shoulder, not specified as traumatic (principal); M25.812 Other specified joint disorders, left shoulder; J44.9 Chronic obstructive pulmonary disease, unspecified; I10 Essential (primary) hypertension; I25.2 Old myocardial infarction; Z86.73 Personal history of transient ischemic attack (TIA), and cerebral infarction without residual deficits
CPT/HCPCS: 29826; 29827; 12345; 64415; 76942; 96374; 96375; C1713; J0690; J1100; J2405; J2704; J2710; J2795; J3010; J3490; J7030

== ENCOUNTER 2020-02-21 15:00 | Emergency (ER) | payer MEDICAID, SELFPAY ==
[2020-02-21 15:17] VITALS: BP 183/102; PULSE 68; RESP 20; TEMP 36.7; O2SAT 96; BMI 32.8
--- NOTE | 2020-02-21 17:21 | USCV_ITS ---
Adiel Suzie Age: 54 Gender: F : 1965 Exam Date: 02/21/2020 17:42 Ordering Phys: Iveth Selby MD [facility] [place] Technologist: Merlyn Akbar [place] [facility] [place] Indication: SWELLING HISTORY: Lower extremity swelling. PROCEDURES: Venous duplex imaging was performed in bilateral lower extremities. The following venous structures were evaluated: common femoral vein, profunda vein, proximal portion of the greater saphenous vein, superficial femoral vein, and the popliteal vein. In addition, the posterior tibial and peroneal trunk were evaluated. FINDINGS: Normal 2-D Doppler and augmentation and compressibility throughout the lower extremity venous structures. Additional imaging through the proximal calf veins also reveals no thrombus. Limited evaluation of the greater saphenous vein is patent with no thrombus.. CONCLUSIONS No evidence of right lower extremity DVT. No evidence of left lower extremity DVT. Chester Dave MD (Electronically Signed) Final Date: 21 February 2020 18:01 S
--- NOTE | 2020-02-21 18:17 | ED_ITS ---
HPI - General Adult General: Chief complaint: General Medical Stated complaint: L SHOULDER SURGERY ON 02.14.20,SWELLING IN BLE Time Seen by Provider: 02/21/20 17:08 Source: patient Mode of arrival: ambulatory Limitations: no limitations History of Present Illness: HPI narrative: The patient is a 54 year old woman who had left rotator cuff repair 7 days ago. She said that about 3 days ago she started noticed pain and swelling in her lower extremities. The pain continues and she is here to be seen. She denies any shortness of breath. No dizziness. Onset (ago): day(s) (3) Location: lower extremity Associated symptoms: Deny chest pain, confusion, cough, diaphoresis, decreased appetite, dyspnea, fevers/chills, headache(s), malaise, nausea, rash, palpitations, seizures, short of breath, syncope, vomiting or weakness Review of Systems General: Reports: 10 or more systems reviewed and unremarkable except in HPI and below Const: Denies: malaise or diaphoresis Eyes: Denies: change in vision or blurry vision ENMT: Denies: throat pain, enlarged tonsils, odynophagia, hoarseness, mouth pain or swelling of lips/tongue Card: Denies: chest pain, palpitations or syncope Resp: Denies: dyspnea GI: Denies: nausea or vomiting : Denies: flank pain, difficulty voiding, dysuria, urinary frequency, urinary urgency or urinary hesitancy Musc: Denies: neck pain, back pain or extremity swelling Skin/Breast: Denies: rash Neuro: Denies: headache(s) or confusion Endo: Denies: polyuria, polydipsia or tired all the time [facility] ED PFSH: Medical History (Updated 02/21/20 @ 19:39 by Iveth Selby MD, [facility] [place]) COPD (chronic obstructive pulmonary disease) Social History Smoking and tobacco status: never smoked Alcohol intake: current Alcohol intake frequency: few times a month Marital status: Current occupational status: disabled History of recent travel: No Physical Exam Const: COMMON NORMALS: no acute distress, average body habitus, patient oriented x3, no limitations, healthy appearing, alert and well nourished HENMT: COMMON NORMALS: normocephalic, atraumatic and moist oral mucous membranes HEAD & SCALP: normocephalic and atraumatic Neck/C-Spine: COMMON NORMALS: no meningeal signs and no JVD Resp: COMMON NORMALS: normal respiratory effort, No retractions, No use of accessory muscles, clear to auscultation bilaterally and percussion normal AUSCULTATION: clear to auscultation bilaterally PERCUSSION: percussion normal Cardio: COMMON NORMALS: no JVD, regular rate, regular rhythm, S1 normal heart sound present, S2 normal heart sound present, No gallops present (Cardio), No clicks present (Cardio), No murmurs present (Cardio), No rub (Cardio) and Peripheral pulses 2+ throughout RATE: regular rate RHYTHM: regular rhythm HEART SOUNDS: S1 normal heart sound present and S2 normal heart sound present PERIPHERAL PULSES: Peripheral pulses 2+ throughout GI: COMMON NORMALS: Normal to inspection, nondistended, normoactive bowel sounds present, Soft to palpation, non-tender, No hepatosplenomegaly present, no masses and no bruits PALPATION: Yes Soft to palpation and Yes No hepatosplenomegaly present : COMMON NORMALS: Yes no CVA tenderness BLADDER/KIDNEY EXAM: Yes no CVA tenderness Back/Pelvis: COMMON NORMALS: no CVA tenderness Extremity: COMMON NORMALS: normal to inspection, full ROM, capillary refill normal and no calf tenderness GENERAL: Yes edema Neuro: COMMON NORMALS: patient oriented x3 SENSORIUM/ORIENTATION: Yes alert MENINGEAL SIGNS: Yes no meningeal signs Skin: COMMON NORMALS: no rashes or lesions noted, no wounds, turgor normal, no jaundice, no petechiae and no mottling GENERAL SKIN EXAM: no rashes or lesions noted and turgor normal Course Reevaluation(s): Reevaluation #1: Discussed her lab and imaging findings with her. Negative for acute findings. Negative DVT. Since she has some pedal edema we will discharge her home with a 3-day supply of furosemide. She voiced understanding and is in agreement with the plan. Time: 19:36 Vital Signs: Vital signs: Vital Signs Temperature 98.1 F 02/21/20 15:17 Pulse Rate 68 02/21/20 15:17 Respiratory Rate 20 H 02/21/20 15:17 Blood Pressure 183/102 02/21/20 15:17 Pulse Oximetry 96 02/21/20 15:17 MDM - General Adult MDM Narrative: Medical decision making narrative: 54-year-old female who recently had rotator cuff surgery and has now developed bilateral lower extremity swelling. Venous Dopplers done were both negative for DVT. She is gi alexandru a short course of low-dose furosemide to reduce her pedal edema. Medical Records: Attestation: I reviewed the patient's medical records. Lab Data: Attestation: I reviewed the patient's lab results. Labs: Lab Results 02/21/20 02/21/20 Range/Units 18:39 18:39 WBC 6.1 (4.0-10.0) 10^3/ uL RBC 3.94 L (4.1-5.3) 10^6/u L Hgb 11.8 (11.5-15.3) g/dL Hct 36.7 L (37.0-47.0) % MCV 93.1 (81-99) fL MCH 29.9 (28.0-34.0) pg MCHC 32.2 (30.0-36.0) g/dL RDW 12.4 (12.1-15.1) % Plt Count 157 (130-400) 10^3/c mm MPV 9.9 (7.4-10.4) fL Neut % (Auto) 77.2 % Lymph % (Auto) 12.4 % [place] % (Auto) 7.1 % Eos % (Auto) 2.6 % Baso % (Auto) 0.2 % Neut # (Auto) 4.68 (1.8-7.7) 10^3/u L Lymph # (Auto) 0.8 (0.8-4.8) 10^3/u L [place] # (Auto) 0.4 (0.2-0.9) 10^3/u L Eos # (Auto) 0.2 (0.0-0.8) 10^3/u L Baso # (Auto) 0.0 (0.0-0.1) 10^3/u L Nucleated RBC % (a uto) 0 % Nucleated RBCs # 0.0 /100WBC Sodium 141 (136-145) mmol/L Potassium 3.6 (3.5-5.1) mmol/L Chloride 103 (98-107) mmol/L Carbon Dioxide 29 (22-29) mmol/L Anion Gap 12.6 (5-19) BUN 14 (6-20) mg/dL Creatinine 0.6 (0.5-0.9) mg/dL GFR Calculation 104.2 (90-130) mL/min Glucose 106 (65-115) mg/dL Calculated Osmolal ity 293 (285-295) mOsm/k g Calcium 9.1 (8.5-10.5) mg/dL Magnesium 1.8 (1.7-2.3) mg/dL Total Bilirubin 0.5 (0.15-1.2) mg/dL AST 21 (0-32) U/L ALT 17 (0-33) U/L Alkaline Phosphata se 97 (35-105) IU/L Total Protein 6.7 (6.6-8.7) g/dL Albumin 3.8 (3.5-5.2) g/dL Globulin 2.9 (1.3-4.6) g/dL Imaging Data^: US Vascular: Radiologist's impression: [address] [address] Ultrasound Report Signed Patient: Suzie Chun RUnsolitario #: [id number] : 1965Acct#:[id number] Age/Sex: 54 / FADM Date: 02/21/20 Loc: [facility] Hospital/Bed: Attending Dr: Ordering Provider/Ordering MD: Iveth Selby MD, [facility] [place] Date of Service: 02/21/20 Procedure(s): CV venous duplex [facility] [id number] Accession Number(s): [id number] Report Number: [id number] Suzie Chun Age: 54 Gender: F : 1965 Exam Date: 02/21/2020 17:42 Ordering Phys: Iveth Selby MD [facility] [place] Technologist: Merlyn Akbar [place] [facility] [place]: SWELLING HISTORY: Lower extremity swelling. PROCEDURES: Venous duplex imaging was performed in bilateral lower extremities. The following venous structures were evaluated: common femoral vein, profunda vein, proximal portion of the greater saphenous vein, superficial femoral vein, and the popliteal vein. In addition, the posterior tibial and peroneal trunk were evaluated. FINDINGS: Normal 2-D Doppler and augmentation and compressibility throughout the lower extremity venous structures. Additional imaging through the proximal calf veins also reveals no thrombus. Limited evaluation of the greater saphenous vein is patent with no thrombus.. CONCLUSIONS No evidence of right lower extremity DVT. No evidence of left lower extremity DVT. Chester Dave MD (Electronically Signed) Final Date: 21 February 2020 18:01 S Discharge Plan Discharge Patient Disposition: Home Clinical Impression: Bilateral leg edema Condition: Stable Prescriptions: New Lasix 20 mg tablet 20 mg PO DAILY Qty: 3 RF: 0 Continued hydrocodone-acetaminophen 5-325 mg tablet 1 tab PO Q6H PRN (Reason: pain) 14 Days Qty: 15 RF: 0 albuterol sulfate 90 mcg/actuation HFA aerosol inhaler 2 inh INHALATION Q6H PRN (Reason: shortness of breath or wheezing) Qty: 8 RF: 3 albuterol sulfate 2.5 mg /3 mL (0.083 %) solution for nebulization 2.5 mg INHALATION QID PRN (Reason: shortness of breath or wheezing) Qty: 75 RF: 3 (DME) nebulizer and compressor Device See Rx Instructions .ROUTE .MEDSUPPLY Qty: 1 RF: 0 Topamax 200 mg 200 mg PO DAILY@0800,1800 RF: 0 oxycodone 5 mg tablet 5 mg PO Q4H PRN (Reason: pain) Qty: 40 RF: 0 tizanidine 4 mg capsule 4 mg PO Q6H PRN (Reason: muscle spasticity) Qty: 30 RF: 0 gtdjqel-zuhuvkaulflpw-eibqnxmn 250-250-65 mg Tablet 1 tab PO Q6H PRN (Reason: Pain) RF: 0 Discharge Orders: Discharge ED (Routine); Ordered 02/21/20 Ordered By: Iveth Selby Referrals: Gurmeet Epstein MD [Primary Care Provider] - 1-3 days Discharge Diet: Usual diet Discharge Activity: Increase activity as tolerated Patient Instructions: Leg Edema (ED) Activity Restrictions/Additional Instructions: Return for any new or worsening symptoms. Follow-up with your primary care provider within 3 days. Take medication as prescribed. Elevate your leg to reduce swelling. Coding Level of Care Code ED Account Contact Associate for Chg Fwd Exam Comprehensive
[2020-02-21 19:01] LABS: Basophils % 0.2 %; Eosinophils # 0.2 10^3/uL (0.0-0.8); Eosinophils % 2.6 %; Hematocrit 36.7 % (37.0-47.0); Hemoglobin 11.8 g/dL (11.5-15.3); Lymphocytes # 0.8 10^3/uL (0.8-4.8); Lymphocytes % 12.4 %; Mean Corpuscular HGB Conc 32.2 g/dL (30.0-36.0); Mean Corpuscular Hemoglobin 29.9 pg (28.0-34.0); Mean Corpuscular Volume 93.1 fL (81-99); Mean Platelet Volume 9.9 fL (7.4-10.4); Monocytes # 0.4 10^3/uL (0.2-0.9); Monocytes % 7.1 %; Neutrophils # 4.68 10^3/uL (1.8-7.7); Neutrophils % 77.2 %; Nucleated Red Blood Cells % 0 %; Platelet Count 157 10^3/cmm (130-400); Red Blood Count 3.94 10^6/uL (4.1-5.3); Red Cell Distribution Width 12.4 % (12.1-15.1); White Blood Count 6.1 10^3/uL (4.0-10.0)
[2020-02-21 19:31] LABS: Alanine Aminotransferase 17 U/L (0-33); Albumin Level 3.8 g/dL (3.5-5.2); Alkaline Phosphatase 97 IU/L (35-105); Anion Gap 12.6 (5-19); Aspartate Amino Transferase 21 U/L (0-32); Blood Urea Nitrogen 14 mg/dL (6-20); Calcium 9.1 mg/dL (8.5-10.5); Carbon Dioxide 29 mmol/L (22-29); Chloride 103 mmol/L (98-107); Globulin 2.9 g/dL (1.3-4.6); Glomerular Filtration Rate 104.2 mL/min (90-130); Glucose 106 mg/dL (65-115); Magnesium 1.8 mg/dL (1.7-2.3); Osmolality Calculated 293 mOsm/kg (285-295); Potassium 3.6 mmol/L (3.5-5.1); Sodium 141 mmol/L (136-145); Total Bilirubin 0.5 mg/dL (0.15-1.2); Total Protein 6.7 g/dL (6.6-8.7)
== END 2020-02-21 20:07 | disposition home or self-care (01) ==
PROVIDERS: Emergency Provider Family Medicine; PCP Internal Medicine
DX: R60.0 Localized edema (principal); Z79.82 Long term (current) use of aspirin; J44.9 Chronic obstructive pulmonary disease, unspecified
CPT/HCPCS: 12345; 80053; 83735; 85025; 93970; 99281; 99283

== ENCOUNTER 2020-02-28 23:31 | Emergency (ER) | payer MEDICAID, SELFPAY ==
[2020-02-28 23:39] VITALS: BP 179/104; PULSE 70; RESP 18; TEMP 36.8; O2SAT 97; BMI 36.8
--- NOTE | 2020-02-28 23:43 | W.ED.CHESTPA ---
HPI - Chest Pain General: Chief Complaint: Chest Pain Stated Complaint: chest pain Time Seen by Provider: 02/28/20 23:43 History of Present Illness: HPI narrative: 54-year-old female comes in with chest pain. On/off for the past 3 days. She has been having some swelling in the lower extremities but she states that is doing better. Patient rates the pain 8/10. 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 Patient had rotator cuff surgery. Patient states that she has a history of COPD. She states she does wear oxygen but she is not improving at this time. She has had some nausea. She occasionally gets heartburn. She points to her epigastric region as the location of her pain. Patient does admit she has been taking naproxen twice a day. MD complaint: chest pain (She points to her epigastric region as the location of the pain.) Onset (ago): day(s) (On/off the past 3 days.) Timing of current episode: episodic Prior episodes: No Onset: during rest Pain location: epigastric Pain radiation: right arm Severity: severe Pain scale (0-10): 8 Quality: sharp Relieving factors: nothing Exacerbating factors: nothing Context: recent surgery (Left rotator cuff surgery) Associated symptoms: Reports leg edema (This has improved.) and nausea; Deny abdominal pain, diaphoresis, dyspnea, fever(s), palpitations, syncope or vomiting Treatment prior to arrival: none Review of Systems General: Reports: 10 or more systems reviewed and unremarkable except in HPI and below Narrative: 54-year-old female does not appear to be in any acute distress. She is wearing a sling on her left upper extremity. Const: Denies: fever(s), chills, body aches, night sweats or diaphoresis Card: Reports: chest pain (Current chief complaint), edema (Lower extremities-this has improved) and swelling of feet/ankles; Denies: palpitations, irregular heart rhythm, lightheadedness or syncope Resp: Denies: dyspnea, productive cough, wheezing, pain on inspiration or chest congestion GI: Reports: nausea and heartburn; Denies: abdominal pain or vomiting : Denies: flank pain Musc: Reports: extremity swelling (Bilateral lower extremity edema, this has improved.) and limited range of motion (Recent left rotator cuff repair); Denies: neck pain or extremity pain Psych: Denies: anxiety PFSH ED PFSH: Medical History (Updated 02/29/20 @ 02:49 by Behzad Nuñez) COPD (chronic obstructive pulmonary disease) Social History Smoking and tobacco status: never smoked Alcohol intake: current Alcohol intake frequency: few times a month Marital status: Current occupational status: disabled History of recent travel: No Physical Exam Const: COMMON NORMALS: no acute distress, patient oriented x3, no limitations, healthy appearing, alert and well nourished GENERAL APPEARANCE: cooperative, comfortable, well kempt and well developed; not in distress and not anxious HENMT: COMMON NORMALS: normocephalic and moist oral mucous membranes HEAD & SCALP: normocephalic Eye: COMMON NORMALS: Equal, round and reactive pupils present, EOMs intact bilaterally, conjunctivae normal and no scleral icterus GENERAL EYE: appearance normal, both eyes and all related structures CONJUNCTIVA: Yes conjunctivae normal PUPIL: Yes Equal, round and reactive pupils present Neck/C-Spine: COMMON NORMALS: full ROM, no lymphadenopathy, supple, no meningeal signs and no JVD GENERAL: Yes normal visual inspection Chest: COMMONS NORMALS: normal inspection of the chest and normal palpation of entire chest wall CHEST: Yes abnormal inspection of the chest, Yes Symmetrical chest wall rise and No localized rib tenderness with anteroposterior compression Resp: COMMON NORMALS: normal respiratory effort, No retractions, No use of accessory muscles and clear to auscultation bilaterally EFFORT & INSPECTION: Yes able to speak in complete sentences, Yes symmetric chest movement, No abnormal respiratory pattern, No tachypneic, No respiratory distress and No decreased respiratory effort AUSCULTATION: clear to auscultation bilaterally Cardio: COMMON NORMALS: no JVD, regular rate and regular rhythm RATE: regular rate RHYTHM: regular rhythm GI: COMMON NORMALS: Normal to inspection, nondistended, normoactive bowel sounds present, Soft to palpation, No hepatosplenomegaly present and no masses INSPECTION: Yes normal to inspection and No abdominal distension AUSCULTATION: Yes normoactive bowel sounds PALPATION: Yes Soft to palpation, Yes Tenderness to palpation present (GI) (Reproducible epigastric tenderness noted) Details: other, No Guarding due to palpation present (GI), No Rigid due to palpation, Yes No hepatosplenomegaly present and No Pulsatile mass present : COMMON NORMALS: Yes no CVA tenderness BLADDER/KIDNEY EXAM: Yes no CVA tenderness Back/Pelvis: COMMON NORMALS: no CVA tenderness Extremity: NARRATIVE EXTREMITY EXAM: Status post left rotator cuff repair, patient has her left upper extremity in a sling GENERAL: Yes normal exam except as noted and No calf tenderness LEFT UPPER EXTREMITY: Yes shoulder joint (Increased pain with range of motion of the left shoulder) Left shoulder joint: No ROM and Yes neurovascular exam Neuro: COMMON NORMALS: patient oriented x3 SENSORIUM/ORIENTATION: Yes alert MENINGEAL SIGNS: Yes no meningeal signs Psych: COMMON NORMALS: mental status grossly normal, Normal thought process present, cooperative, normal affect and speech normal APPEARANCE: Yes grossly normal and Yes well kempt ATTITUDE: Yes calm and Yes engaged SPEECH: Yes normal speech THOUGHT PROCESS: Normal thought process present Course Vital Signs: Vital signs: Vital Signs Temperature 98.2 F 02/28/20 23:39 Pulse Rate 79 02/29/20 03:09 Respiratory Rate 18 02/29/20 03:09 Blood Pressure 143/89 02/29/20 03:09 Pulse Oximetry 99 02/29/20 03:09 MDM - Chest Pain Lab Data: Labs: Lab Results 02/29/20 02/29/20 02/29/20 Range/Units 00:24 00:24 00:24 WBC 3.0 L (4.0-10.0) 10^3/ uL RBC 4.27 (4.1-5.3) 10^6/u L Hgb 12.6 (11.5-15.3) g/dL Hct 39.4 (37.0-47.0) % MCV 92.3 (81-99) fL MCH 29.5 (28.0-34.0) pg MCHC 32.0 (30.0-36.0) g/dL RDW 13.1 (12.1-15.1) % Plt Count 170 (130-400) 10^3/c mm MPV 9.8 (7.4-10.4) fL Neut % (Auto) 61.8 % Lymph % (Auto) 22.5 % Fountain % (Auto) 12.8 % Eos % (Auto) 2.3 % Baso % (Auto) 0.3 % Neut # (Auto) 1.84 (1.8-7.7) 10^3/u L Lymph # (Auto) 0.7 L (0.8-4.8) 10^3/u L Fountain # (Auto) 0.4 (0.2-0.9) 10^3/u L Eos # (Auto) 0.1 (0.0-0.8) 10^3/u L Baso # (Auto) 0.0 (0.0-0.1) 10^3/u L Nucleated RBC % (a uto) 0 % Nucleated RBCs # 0.0 /100WBC Sodium 140 (136-145) mmol/L Potassium 3.7 (3.5-5.1) mmol/L Chloride 102 (98-107) mmol/L Carbon Dioxide 29 (22-29) mmol/L Anion Gap 12.7 (5-19) BUN 14 (6-20) mg/dL Creatinine 0.6 (0.5-0.9) mg/dL GFR Calculation 104.2 (90-130) mL/min Glucose 102 (65-115) mg/dL Calculated Osmolal ity 291 (285-295) mOsm/k g Calcium 8.8 (8.5-10.5) mg/dL Total Bilirubin 0.2 (0.15-1.2) mg/dL AST 26 (0-32) U/L ALT 24 (0-33) U/L Alkaline Phosphata se 103 (35-105) IU/L Troponin T Baselin e 6 (0-10) ng/L Troponin T 120 Min cher-ae heights (0-10) ng/L Delta Troponin T (0-10) ABS# NT-Pro-B Natriuret Pep 30 (0-125) pg/mL Total Protein 6.5 L (6.6-8.7) g/dL Albumin 4.0 (3.5-5.2) g/dL Globulin 2.5 (1.3-4.6) g/dL Lipase 44 (13-60) U/L 02/29/20 Range/Units 02:11 WBC (4.0-10.0) 10^3/ uL RBC (4.1-5.3) 10^6/u L Hgb (11.5-15.3) g/dL Hct (37.0-47.0) % MCV (81-99) fL MCH (28.0-34.0) pg MCHC (30.0-36.0) g/dL RDW (12.1-15.1) % Plt Count (130-400) 10^3/c mm MPV (7.4-10.4) fL Neut % (Auto) % Lymph % (Auto) % Fountain % (Auto) % Eos % (Auto) % Baso % (Auto) % Neut # (Auto) (1.8-7.7) 10^3/u L Lymph # (Auto) (0.8-4.8) 10^3/u L Fountain # (Auto) (0.2-0.9) 10^3/u L Eos # (Auto) (0.0-0.8) 10^3/u L Baso # (Auto) (0.0-0.1) 10^3/u L Nucleated RBC % (a uto) % Nucleated RBCs # /100WBC Sodium (136-145) mmol/L Potassium (3.5-5.1) mmol/L Chloride (98-107) mmol/L Carbon Dioxide (22-29) mmol/L Anion Gap (5-19) BUN (6-20) mg/dL Creatinine (0.5-0.9) mg/dL GFR Calculation (90-130) mL/min Glucose (65-115) mg/dL Calculated Osmolal ity (285-295) mOsm/k g Calcium (8.5-10.5) mg/dL Total Bilirubin (0.15-1.2) mg/dL AST (0-32) U/L ALT (0-33) U/L Alkaline Phosphata se (35-105) IU/L Troponin T Baselin e (0-10) ng/L Troponin T 120 Min cher-ae heights 6.00 (0-10) ng/L Delta Troponin T 0 (0-10) ABS# NT-Pro-B Natriuret Pep (0-125) pg/mL Total Protein (6.6-8.7) g/dL Albumin (3.5-5.2) g/dL Globulin (1.3-4.6) g/dL Lipase (13-60) U/L Discharge Plan Discharge Patient Disposition: Home Clinical Impression: Chest pain due to GERD, Bilateral edema of lower extremity Chest pain Qualifiers: Chest pain type: other chest pain Qualified Code(s): R07.89 - Other chest pain Nausea & vomiting Qualifiers: Vomiting type: unspecified Vomiting Intractability: non-intractable Qualified Code(s): R11.2 - Nausea with vomiting, unspecified Clinical Impression: (Ruled Out): Unstable angina pectoris Condition: Stable Prescriptions: New ondansetron HCl [Zofran] 4 mg tablet 4 mg PO Q6H PRN (Reason: nausea and vomiting) Qty: 14 RF: 0 omeprazole 40 mg capsule,delayed release(DR/EC) 40 mg PO DAILY 14 Days Qty: 14 RF: 0 No Action hydrocodone-acetaminophen 5-325 mg tablet 1 tab PO Q6H PRN (Reason: pain) 14 Days Qty: 15 RF: 0 albuterol sulfate 2.5 mg /3 mL (0.083 %) solution for nebulization 2.5 mg INHALATION QID PRN (Reason: shortness of breath or wheezing) Qty: 75 RF: 3 (DME) nebulizer and compressor Device See Rx Instructions .ROUTE .MEDSUPPLY Qty: 1 RF: 0 oxycodone-acetaminophen [Percocet] 5-325 mg tablet 1 tab PO Q4H PRN (Reason: pain) 7 Days Qty: 40 RF: 0 albuterol sulfate 90 mcg/actuation HFA aerosol inhaler 2 inh INHALATION Q6H PRN (Reason: shortness of breath or wheezing) Qty: 8 RF: 3 Topamax 200 mg 200 mg PO DAILY@0800,1800 RF: 0 oxycodone 5 mg tablet 5 mg PO Q4H PRN (Reason: pain) Qty: 40 RF: 0 tizanidine 4 mg capsule 4 mg PO Q6H PRN (Reason: muscle spasticity) Qty: 30 RF: 0 [id number]-qgsnytyyygkwj-iiovzzxs 250-250-65 mg Tablet 1 tab PO Q6H PRN (Reason: Pain) RF: 0 Lasix 20 mg tablet 20 mg PO DAILY Qty: 3 RF: 0 Discharge Orders: Discharge ED (Routine); Ordered 02/29/20 Ordered By: Behzad Nuñez Referrals: Gurmeet Epstein MD [Primary Care Provider] - Discharge Diet: Advance as tolerated Discharge Activity: Limit activity as instructed Patient Instructions: Chest Pain (ED), Gastroesophageal Reflux Disease (ED), Acute Nausea and Vomiting (ED), Leg Edema (ED) Activity Restrictions/Additional Instructions: Please keep a food diary. Coding Level of Care Code ED Attending Ambulatory Care for Chg Fwd Exam Comprehensive
--- NOTE | 2020-02-29 00:03 | XR_ITS ---
WS: [id number] Portable AP upright chest, 02/29/2020 Clinical Data: Chest pain Comparison: Portable chest, 12/10/2019. Findings: No nodules, masses or effusions are seen. The heart is normal. The pulmonary vascularity is not increased. No pneumonia or pneumothorax is seen. XR/XR chest 1V portable [id number] Impression: Negative chest.
[2020-02-29 00:50] LABS: Troponin(5th) Baseline 6 ng/L (0-10)
[2020-02-29 00:57] LABS: Basophils % 0.3 %; Eosinophils # 0.1 10^3/uL (0.0-0.8); Eosinophils % 2.3 %; Hematocrit 39.4 % (37.0-47.0); Hemoglobin 12.6 g/dL (11.5-15.3); Lymphocytes # 0.7 10^3/uL (0.8-4.8); Lymphocytes % 22.5 %; Mean Corpuscular Hemoglobin 29.5 pg (28.0-34.0); Mean Corpuscular Volume 92.3 fL (81-99); Mean Platelet Volume 9.8 fL (7.4-10.4); Monocytes # 0.4 10^3/uL (0.2-0.9); Monocytes % 12.8 %; Neutrophils # 1.84 10^3/uL (1.8-7.7); Neutrophils % 61.8 %; Nucleated Red Blood Cells % 0 %; Platelet Count 170 10^3/cmm (130-400); Red Blood Count 4.27 10^6/uL (4.1-5.3); Red Cell Distribution Width 13.1 % (12.1-15.1)
[2020-02-29 00:59] LABS: Alanine Aminotransferase 24 U/L (0-33); Alkaline Phosphatase 103 IU/L (35-105); Anion Gap 12.7 (5-19); Aspartate Amino Transferase 26 U/L (0-32); Blood Urea Nitrogen 14 mg/dL (6-20); Calcium 8.8 mg/dL (8.5-10.5); Carbon Dioxide 29 mmol/L (22-29); Chloride 102 mmol/L (98-107); Globulin 2.5 g/dL (1.3-4.6); Glomerular Filtration Rate 104.2 mL/min (90-130); Glucose 102 mg/dL (65-115); Lipase 44 U/L (13-60); NT Pro B Type Natriuretic Pept 30 pg/mL (0-125); Osmolality Calculated 291 mOsm/kg (285-295); Potassium 3.7 mmol/L (3.5-5.1); Sodium 140 mmol/L (136-145); Total Bilirubin 0.2 mg/dL (0.15-1.2); Total Protein 6.5 g/dL (6.6-8.7)
[2020-02-29 02:15] VITALS: PULSE 78; RESP 18; O2SAT 98
[2020-02-29 02:33] LABS: Troponin 5 2HR Delta 0 ABS# (0-10)
[2020-02-29 03:09] VITALS: BP 143/89; PULSE 79; RESP 18; O2SAT 99
== END 2020-02-29 03:10 | disposition home or self-care (01) ==
PROVIDERS: Emergency Provider Emergency Medicine; PCP Internal Medicine
DX: R07.89 Other chest pain (principal); R11.2 Nausea with vomiting, unspecified; K21.9 Gastro-esophageal reflux disease without esophagitis; R60.0 Localized edema; Z79.82 Long term (current) use of aspirin; J44.9 Chronic obstructive pulmonary disease, unspecified
CPT/HCPCS: 12345; 71045; 80053; 83690; 83880; 84484; 85025; 99282; 99283

== ENCOUNTER → 2020-05-27 10:54 | Outpatient (BNVA) | payer MEDICAID, SELFPAY | PROVIDERS: PCP Internal Medicine; Referring Provider Orthopaedic Surgery; Visit Provider Anesthesiology | DX: G89.29 Other chronic pain (principal); M25.512 Pain in left shoulder; M25.562 Pain in left knee; S13.4XXA Sprain of ligaments of cervical spine, initial encounter; S33.5XXA Sprain of ligaments of lumbar spine, initial encounter; X58.XXXA Exposure to other specified factors, initial encounter; S80.02XD Contusion of left knee, subsequent encounter; X58.XXXD Exposure to other specified factors, subsequent encounter; M54.40 Lumbago with sciatica, unspecified side; Z79.891 Long term (current) use of opiate analgesic | CPT/HCPCS: 99204; 99205 ==

== ENCOUNTER 2020-06-02 08:25 | Outpatient (CLI) | payer MEDICAID, SELFPAY ==
--- NOTE | 2020-06-02 08:45 | MR_ITS ---
WS: [id number] Exam: MR shoulder LT wo con* [id number] Date/Time of Exam: 06/02/2020 9:02 AM Reason For Exam: SHOULDER PAIN The left shoulder is evaluated in the axial, sagittal and coronal planes with multiple imaging sequen elizabeth. There is a full-thickness tear of the supraspinatus tendon with about 1 cm retraction of the tendon. The remaining tendons of the rotator cuff show no evidence of tear. There is tendinosis of the infras pinatus tendon. The subscapularis tendon and teres minor tendons are intact. There are anchoring scre ws in the humeral head. The long head biceps tendon is seated in the bicipital groove. The biceps anc hor is not well defined. A tear cannot be excluded. Moderate degenerative change of the glenohumeral joint. There is arthrosis at the AC joint. There may be mild subacromial bone spurring. MR/MR shoulder LT wo con* [id number] IMPRESSION: 1. Full-thickness tear of the distal supraspinatus tendon with about 1 cm retra ction of the tendon. 2. Tendinosis of the infraspinatus tendon. Arthrosis of the AC joint and mild s ubacromial bone spurring which might predispose this patient to impingement. 3. The biceps tendon is seated in the bicipital groove but the biceps anchor po int is not well clarified. A tear is not excluded.
== END 2020-06-02 08:26 | disposition home or self-care (01) ==
LOC: RADWPI 08:29
PROVIDERS: PCP Internal Medicine; Visit Provider Orthopaedic Surgery
DX: Z48.89 Encounter for other specified surgical aftercare (principal); M75.102 Unspecified rotator cuff tear or rupture of left shoulder, not specified as traumatic
CPT/HCPCS: 73221

== ENCOUNTER → 2020-06-18 09:10 | Outpatient (BNVA) | payer MEDICAID, SELFPAY | PROVIDERS: PCP Internal Medicine; Visit Provider Anesthesiology | DX: G89.29 Other chronic pain (principal); M54.41 Lumbago with sciatica, right side; M54.42 Lumbago with sciatica, left side; S13.4XXA Sprain of ligaments of cervical spine, initial encounter; S33.5XXA Sprain of ligaments of lumbar spine, initial encounter; X58.XXXA Exposure to other specified factors, initial encounter; M25.512 Pain in left shoulder; Z79.891 Long term (current) use of opiate analgesic | CPT/HCPCS: 99214 ==

== ENCOUNTER 2020-07-04 15:42 | Emergency (ER) | payer MEDICAID, SELFPAY ==
[2020-07-04 15:50] VITALS: BP 179/128; PULSE 70; RESP 18; TEMP 37.1; O2SAT 95; BMI 34.1
--- NOTE | 2020-07-04 16:26 | XRR_ITS ---
PROCEDURE INFORMATION: Exam: XR Right Foot Exam date and time: 07/04/2020 5:13 PM Age: 54 years old Clinical indication: Injury or trauma; Blunt trauma; Injury date: 06/26/20; Patient HX: Fall - right foot pain, non smoker, HX cervical cancer TECHNIQUE: Imaging protocol: XR Right foot. Views: 3 or more views. Total images: 3 COMPARISON: No relevant prior studies available. FINDINGS: Bones/joints: No visible evidence of active or acute osseous pathology. Mild hallux valgus with bunion. Small heel spur. 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 Soft tissues: Unremarkable. XR/XR foot RT min 3V* [id number] IMPRESSION: Nonacute.
--- NOTE | 2020-07-04 16:26 | XRR_ITS ---
PROCEDURE INFORMATION: Exam: XR Left Shoulder Exam date and time: 07/04/2020 5:13 PM Age: 54 years old Clinical indication: Injury or trauma; Fall; Blunt trauma (contusions or hematomas); Injury date: 06/26/20; Prior surgery; Surgery type: Left shoulder, hyst; Patient HX: Fell - left shoulder consistent pain, HX cervical cancer, non smoker TECHNIQUE: Imaging protocol: XR Left shoulder. Views: 2 or more views. Total images: 3 COMPARISON: No relevant prior studies available. FINDINGS: Bones/joints: No visible acute osseous abnormality, fracture, subluxation, or dislocation. No radiographically visible joint effusion. Soft tissues: Unremarkable. XR/XR shoulder LT min 2V* [id number] IMPRESSION: Nonacute.
--- NOTE | 2020-07-04 16:26 | XRR_ITS ---
PROCEDURE INFORMATION: Exam: XR Right Tibia and Fibula Exam date and time: 07/04/2020 5:13 PM Age: 54 years old Clinical indication: Injury or trauma; Blunt trauma; Lower leg; Injury date: 06/26/20; Patient HX: Fall - right tib fib pain, non smoker, HX cervical cancer TECHNIQUE: Imaging protocol: XR Right tibia and fibula. Views: 2 views. Total images: 2 COMPARISON: No relevant prior studies available. FINDINGS: Bones/joints: No visible evidence of active or acute osseous pathology. Soft tissues: Unremarkable. XR/XR tibia fibula RT 2V [id number] IMPRESSION: Nonacute.
--- NOTE | 2020-07-04 16:26 | W.ED.FALL ---
Documented by User: ALESSANDRO Craven 07/15/20 07:29 HPI - Fall General: Chief Complaint: Fall Stated Complaint: FELL 8 DAYS AGO HAVING PAIN Time Seen by Provider: 07/04/20 16:08 Source: patient Mode of arrival: ambulatory Limitations: no limitations History of Present Illness: HPI Narrative: Patient is a 54-year-old female who presents to ED today for evaluation following a fall that occurred 8 days ago. She tells me she accidentally tripped over a tire and fell onto her left side. Patient has a longstanding history of chronic shoulder pain. She states this joint is been operated on previously. She tells me she is having worsening of her chronic pain since the fall. She also has complaints of right foot and right leg pain. She has been ambulatory since the fall. She denies striking her head or LOC. Denies neck or back pain. MD complaint: fall Onset (ago): day(s) Fall from: standing Fall witnessed: no Place fall occurred: home Loss of consciousness: None Prolonged down time: no Symptoms prior to fall: none Context: tripped/slipped Associated symptoms-after fall: Denies chest pain, headache(s) or neck pain Review of Systems Eyes: Denies: change in vision or blurry vision Card: Denies: chest pain Resp: Denies: dyspnea GI: Denies: nausea or vomiting Musc: Reports: extremity pain (R LE/foot) and joint pain (L shoulder); Denies: neck pain, back pain, extremity swelling, joint swelling, joint redness or joint warmth Neuro: Denies: headache(s), numbness in extremities, weakness in extremities or sensory changes [facility] ED PFSH: Medical History Chronic left shoulder pain Chronic low back pain with sciatica Chronic neck pain COPD (chronic obstructive pulmonary disease) Encounter for long-term opiate analgesic use Pain management contract signed Social History Smoking and tobacco status: never smoked Second hand smoke exposure: Yes Alcohol intake: never Marital status: Current occupational status: disabled History of recent travel: No Physical Exam Const: COMMON NORMALS: no acute distress, patient oriented x3, no limitations and alert ORIENTATION/CONSCIOUSNESS: Yes awake, Yes oriented to person, Yes oriented to place and Yes oriented to time HENMT: COMMON NORMALS: normocephalic and atraumatic HEAD & SCALP: normocephalic and atraumatic Neck/C-Spine: COMMON NORMALS: full ROM CERVICAL SPINE: No pain with cervical ROM and No Cervical spine tenderness Resp: COMMON NORMALS: normal respiratory effort Back/Pelvis: COMMON NORMALS: thoracic and lumbar spine normal to inspection, no thoracic nor lumbar tenderness and thoraco-lumbar ROM normal Extremity: GENERAL: Yes normal exam except as noted OTHER: bilateral LE equal edema; pain to dorsum of R foot w/o swelling, ecchymosis, or bony deformity; she has mild pain to lateral R lower leg; she has some healing ecchymosis to L lateral leg but doesn't complain of much pain here; she has diffuse tenderness of her L shoulder that is chronic for her but states pain is worse since fall; no obvious bony deformity/dislocation; all extremities NV intact Neuro: MAIRA COMA SCALE: document GCS findings Angora coma scale eye opening: Spontaneous Angora coma scale verbal response: Orientated Angora coma scale motor response: Obey commands Angora coma scale total score: 15 COMMON NORMALS: patient oriented x3, moves all extremities, no focal motor deficits and no sensory deficits noted SENSORIUM/ORIENTATION: Yes alert, Yes oriented to person, Yes oriented to place and Yes oriented to time Skin: COMMON NORMALS: no rashes or lesions noted GENERAL SKIN EXAM: no rashes or lesions noted TRAUMA: no lacerations or abrasions Course Vital Signs: Vital signs: Vital Signs Temperature 98.7 F 07/04/20 15:50 Pulse Rate 70 07/04/20 15:50 Respiratory Rate 18 07/04/20 15:50 Blood Pressure 179/128 07/04/20 15:50 Pulse Oximetry 95 07/04/20 15:50 MDM - Fall MDM Narrative: Medical decision making narrative: Care transferred to KAROLINA Roman pending XRs. Discharge Plan Discharge Patient Disposition: Home Clinical Impression: Sprain of left shoulder, Sprain of foot, right Condition: Stable Prescriptions: No Action hydrocodone-acetaminophen 7.5-325 mg tablet 1 tab PO TID PRN (Reason: pain) 30 Days Qty: 90 RF: 0 (DME) nebulizer and compressor Device See Rx Instructions .ROUTE .MEDSUPPLY Qty: 1 RF: 0 benzonatate [Tessalon Perles] 100 mg capsule 100 mg PO TID PRN (Reason: cough) Qty: 60 RF: 0 Lasix 20 mg tablet 20 mg PO DAILY Qty: 90 RF: 6 tizanidine 4 mg capsule 4 mg PO Q6H PRN (Reason: muscle spasticity) Qty: 30 RF: 4 Zofran 4 mg tablet 4 mg PO Q6H PRN (Reason: nausea and vomiting) Qty: 14 RF: 0 cholestyramine (with sugar) [Questran] 4 gram powder in packet 4 g PO DAILY Qty: 60 RF: 0 topiramate [Topamax] 200 mg tablet 200 mg PO BID Qty: 90 RF: 3 albuterol sulfate 90 mcg/actuation HFA aerosol inhaler 2 inh INHALATION Q6H PRN (Reason: shortness of breath or wheezing) Qty: 8 RF: 3 albuterol sulfate 2.5 mg /3 mL (0.083 %) solution for nebulization 2.5 mg INHALATION QID PRN (Reason: shortness of breath or wheezing) Qty: 75 RF: 3 omeprazole 20 mg capsule,delayed release(DR/EC) 20 mg PO DAILY Qty: 30 RF: 3 Topamax 200 mg 200 mg PO DAILY@0800,1800 RF: 0 xnlhogy-qblhuwqgsqnck-ylpfbllw 250-250-65 mg Tablet 1 tab PO Q6H PRN (Reason: Pain) RF: 0 Discharge Orders: Discharge ED (Routine); Ordered 07/04/20 Ordered By: Wicho Gaytan Referrals: Gurmeet Epstein MD [Primary Care Provider] - Discharge Diet: Usual diet Discharge Activity: Increase activity as tolerated Patient Instructions: Shoulder Sprain (ED), Foot Sprain (ED) Activity Restrictions/Additional Instructions: Place ice to area as needed. Can take Tylenol for discomfort. Follow-up with family medical provider as needed. Coding Level of Care Code ED [employer] Tender for Chg Fwd Exam Comprehensive Documented by User: KAROLINA Roman 07/05/20 01:30 HPI - Fall General: Chief Complaint: Fall Stated Complaint: FELL 8 DAYS AGO HAVING PAIN Time Seen by Provider: 07/04/20 16:08 PFSH ED PFSH: Medical History Chronic left shoulder pain Chronic low back pain with sciatica Chronic neck pain COPD (chronic obstructive pulmonary disease) Encounter for long-term opiate analgesic use Pain management contract signed Social History Smoking and tobacco status: never smoked Second hand smoke exposure: Yes Alcohol intake: never Marital status: Current occupational status: disabled History of recent travel: No Course Vital Signs: Vital signs: Vital Signs Temperature 98.7 F 07/04/20 15:50 Pulse Rate 70 07/04/20 15:50 Respiratory Rate 18 07/04/20 15:50 Blood Pressure 179/128 07/04/20 15:50 Pulse Oximetry 95 07/04/20 15:50 Discharge Plan Discharge Patient Disposition: Home Clinical Impression: Sprain of left shoulder, Sprain of foot, right Condition: Stable Prescriptions: No Action hydrocodone-acetaminophen 7.5-325 mg tablet 1 tab PO TID PRN (Reason: pain) 30 Days Qty: 90 RF: 0 (DME) nebulizer and compressor Device See Rx Instructions .ROUTE .MEDSUPPLY Qty: 1 RF: 0 benzonatate [Tessalon Perles] 100 mg capsule 100 mg PO TID PRN (Reason: cough) Qty: 60 RF: 0 Lasix 20 mg tablet 20 mg PO DAILY Qty: 90 RF: 6 tizanidine 4 mg capsule 4 mg PO Q6H PRN (Reason: muscle spasticity) Qty: 30 RF: 4 Zofran 4 mg tablet 4 mg PO Q6H PRN (Reason: nausea and vomiting) Qty: 14 RF: 0 cholestyramine (with sugar) [Questran] 4 gram powder in packet 4 g PO DAILY Qty: 60 RF: 0 topiramate [Topamax] 200 mg tablet 200 mg PO BID Qty: 90 RF: 3 albuterol sulfate 90 mcg/actuation HFA aerosol inhaler 2 inh INHALATION Q6H PRN (Reason: shortness of breath or wheezing) Qty: 8 RF: 3 albuterol sulfate 2.5 mg /3 mL (0.083 %) solution for nebulization 2.5 mg INHALATION QID PRN (Reason: shortness of breath or wheezing) Qty: 75 RF: 3 omeprazole 20 mg capsule,delayed release(DR/EC) 20 mg PO DAILY Qty: 30 RF: 3 Topamax 200 mg 200 mg PO DAILY@0800,1800 RF: 0 tsirrks-zeykqxepcgbux-ejfmzpxs 250-250-65 mg Tablet 1 tab PO Q6H PRN (Reason: Pain) RF: 0 Discharge Orders: Discharge ED (Routine); Ordered 07/04/20 Ordered By: Wicho Gaytan Referrals: Gurmeet Epstein MD [Primary Care Provider] - Discharge Diet: Usual diet Discharge Activity: Increase activity as tolerated Patient Instructions: Shoulder Sprain (ED), Foot Sprain (ED) Activity Restrictions/Additional Instructions: Place ice to area as needed. Can take Tylenol for discomfort. Follow-up with family medical provider as needed. Coding Level of Care Code ED Mexican [employer] Machine Tender for Mike Fwd Exam Comprehensive
== END 2020-07-04 18:18 | disposition home or self-care (01) ==
PROVIDERS: Emergency Provider Nurse Practitioner Family; PCP Internal Medicine
DX: S43.402A Unspecified sprain of left shoulder joint, initial encounter (principal); S93.601A Unspecified sprain of right foot, initial encounter; Z79.82 Long term (current) use of aspirin; J44.9 Chronic obstructive pulmonary disease, unspecified; Z77.22 Contact with and (suspected) exposure to environmental tobacco smoke (acute) (chronic); W18.09XA Striking against other object with subsequent fall, initial encounter
CPT/HCPCS: 73030; 73590; 73630; 99283

== ENCOUNTER → 2020-07-16 13:07 | Outpatient (BNVA) | payer MEDICAID, SELFPAY | PROVIDERS: PCP Internal Medicine; Visit Provider Nurse Practitioner | DX: G89.29 Other chronic pain (principal); M54.41 Lumbago with sciatica, right side; M54.42 Lumbago with sciatica, left side; S13.4XXA Sprain of ligaments of cervical spine, initial encounter; S33.5XXA Sprain of ligaments of lumbar spine, initial encounter; X58.XXXA Exposure to other specified factors, initial encounter; M50.90 Cervical disc disorder, unspecified, unspecified cervical region; M47.812 Spondylosis without myelopathy or radiculopathy, cervical region; M25.569 Pain in unspecified knee; M79.605 Pain in left leg; M25.512 Pain in left shoulder; M79.622 Pain in left upper arm; Z79.891 Long term (current) use of opiate analgesic | CPT/HCPCS: 99215 ==

== ENCOUNTER 2020-08-05 14:30 | Outpatient (CLI) | payer MEDICAID, SELFPAY ==
--- NOTE | 2020-08-05 14:52 | MR_ITS ---
WS: [id number] MRI LUMBAR SPINE NONCONTRAST HISTORY: Back pain. COMPARISON: 05/12/2006 TECHNIQUE: Sagittal and axial multisequence imaging is submitted. Moderate increase in the thoracic kyphosis. Moderate increase in the lumbar lordosis. 2 mm anterolisthesis of L4. Mild disc space narrowing and d esiccation throughout the lumbar spine. Motion artifact causing degradation of quality. No marrow edema or acute fracture. Conus terminates normally at L1-2 disc level. L1-L2: Normal. L2-L3: Normal. L3-L4: Mild annular disc bulging with ligamentum flavum and facet arthritis. Mild disc osteophyte enc roachment into the RIGHT foramen. Mild RIGHT foraminal narrowing. L4-L5: Mild annular disc bulging with ligamentum flavum disease and facet arthritis. Very minimal lee ateral foraminal narrowing. L5-S1: Broad-based disc bulging posteriorly. Very slight encroachment upon the S1 nerve roots but no displacement. Disc osteophyte extends into the foramen causing very mild bilateral foraminal narrowin g, RIGHT greater than LEFT. Paravertebral soft tissues are normal. MR/MR lumbar spine wo con* [id number] IMPRESSION: 1. No high-grade central or foraminal stenosis. Mild progression of spondyliti c changes since the prior study from 2006. 2. Mild broad-based disc bulging at L5-S1 with slight contact on the nerve bob ts. 3. Disc osteophyte in the RIGHT L3-4 foramen contacts the L3 exiting nerve bob t. 4. Mild RIGHT foraminal narrowing at L3-4, bilateral at L4-5 and L5-S1. 5. Moderate increase within lumbar lordosis.
--- NOTE | 2020-08-05 14:52 | MR_ITS ---
WS: [id number] MRI CERVICAL SPINE NONCONTRAST HISTORY: CERVICAL DISC DISORDER COMPARISON: 05/12/2006 and 12/10/2019 Technique: Multiplanar, multisequence noncontrast imaging of the cervical spine. Moderate increase in the cervical lordosis. Signal within the cervical cord is normal. Visualized posterior fossa is unremarkable. Craniocervical junction, C1 and C2 relationship, odontoid process and soft tissues are normal. Quality of this examination is degraded by motion and breathing artifact. C2-C3: Normal. C3-C4: Small bilateral foraminal osteophytes. Moderate to severe LEFT foraminal stenosis due to osteo phyte disease. Mild foraminal stenosis on the RIGHT. C4-C5: Mild bilateral foraminal stenosis due to osteophytes. C5-C6: Small central disc protrusion with small bilateral foraminal osteophytes. Moderate bilateral f oraminal stenosis. C6-C7: Moderate size central disc protrusion with bilateral disc osteophyte complexes resulting in mo derate bilateral foraminal stenosis. C7-T1: Normal. Paraspinal soft tissue are normal. MR/MR cervical spin wo con* [id number] IMPRESSION: 1. Quality examination is compromised by motion and body habitus. 2. Moderate to severe LEFT foraminal stenosis at C3-4 and mild on the RIGHT. 3. Moderate bilateral foraminal stenosis at C5-6 and C6-7 due to combination o f disc and osteophyte disease. 4. No severe central stenosis.
--- NOTE | 2020-08-05 14:59 | XR_ITS ---
WS: [id number] LATERAL CERVICAL SPINE: 3 view. Lateral radiographs are performed in upright neutral, flexion and extension to the patient's toleranc e. HISTORY: S13.4XXA - Sprain of ligaments of cervical spine, COMPARISON: 08/06/2019 Moderate increase in the cervical lordosis. Mild disc space narrowing and endplate osteophytes from C 3 through C6. No fractures. Facet joints are crowded from C2-3 through C5-6. 2 mm anterolisthesis of C5 on neutral and flexion. XR/XR cervical spine fl/ex [id number] IMPRESSION: 1. Increase in the cervical lordosis. 2. 2 mm anterolisthesis of C5. No instability of any significance is demonstra carl.
--- NOTE | 2020-08-05 14:59 | XR_ITS ---
WS: [id number] LATERAL LUMBAR SPINE: 3 view. Lateral radiographs are performed in upright neutral, flexion and extension to the patient's toleranc e. HISTORY: M54.40 - Lumbago with sciatica, unspecified side COMPARISON: 11/19/2019 Moderate increase in the lumbar lordosis. No fractures. L4 anterolisthesis by 4 mm increases to 5.5 m m during flexion and decreases to 2 mm during extension. There is very slight retrolisthesis of L2 du ring extension. Facet joint arthritis is moderate at L4-5 through L5-S1. XR/XR lumbar spine f/e only [id number] IMPRESSION: 1. Mild anterolisthesis of L4 during neutral imaging with mild instability dur ing flexion and extension. 2. Minimal retrolisthesis of L2 during extension.
== END 2020-08-05 14:31 | disposition home or self-care (01) ==
LOC: RADWPI 14:31
PROVIDERS: PCP Internal Medicine; Visit Provider Nurse Practitioner
DX: S13.4XXA Sprain of ligaments of cervical spine, initial encounter (principal); M54.40 Lumbago with sciatica, unspecified side; M50.90 Cervical disc disorder, unspecified, unspecified cervical region; M25.78 Osteophyte, vertebrae; M51.27 Other intervertebral disc displacement, lumbosacral region; M48.02 Spinal stenosis, cervical region; X58.XXXA Exposure to other specified factors, initial encounter
CPT/HCPCS: 72040; 72120; 72141; 72148

== ENCOUNTER → 2020-08-13 13:03 | Outpatient (BNVA) | payer MEDICAID, SELFPAY | PROVIDERS: PCP Internal Medicine; Visit Provider Nurse Practitioner | DX: G89.29 Other chronic pain (principal); M54.40 Lumbago with sciatica, unspecified side; M47.812 Spondylosis without myelopathy or radiculopathy, cervical region; M79.622 Pain in left upper arm; M25.512 Pain in left shoulder; R29.898 Other symptoms and signs involving the musculoskeletal system; S13.4XXA Sprain of ligaments of cervical spine, initial encounter; S33.5XXA Sprain of ligaments of lumbar spine, initial encounter; X58.XXXA Exposure to other specified factors, initial encounter; Z79.891 Long term (current) use of opiate analgesic | CPT/HCPCS: 99214 ==

== ENCOUNTER → 2020-09-16 14:33 | Outpatient (BNVA) | payer MEDICAID, SELFPAY | PROVIDERS: PCP Internal Medicine; Visit Provider Anesthesiology Pain Medicine | DX: G89.29 Other chronic pain (principal); M54.5 Low back pain; Z79.891 Long term (current) use of opiate analgesic | CPT/HCPCS: 62323; J1040; J3490 ==

== ENCOUNTER → 2020-10-23 09:19 | Outpatient (BNVA) | payer MEDICAID, SELFPAY | PROVIDERS: PCP Internal Medicine; Visit Provider Nurse Practitioner | DX: G89.29 Other chronic pain (principal); M54.41 Lumbago with sciatica, right side; M54.42 Lumbago with sciatica, left side; M48.02 Spinal stenosis, cervical region; M47.812 Spondylosis without myelopathy or radiculopathy, cervical region; S13.4XXA Sprain of ligaments of cervical spine, initial encounter; S33.5XXA Sprain of ligaments of lumbar spine, initial encounter; M79.622 Pain in left upper arm; M25.512 Pain in left shoulder; M79.652 Pain in left thigh; X58.XXXA Exposure to other specified factors, initial encounter; Z79.891 Long term (current) use of opiate analgesic | CPT/HCPCS: 99213; 99214 ==

== ENCOUNTER → 2020-12-18 11:01 | Outpatient (BNVA) | payer MEDICAID, SELFPAY | PROVIDERS: PCP Internal Medicine; Visit Provider Anesthesiology | DX: G89.29 Other chronic pain (principal); M79.622 Pain in left upper arm; M47.812 Spondylosis without myelopathy or radiculopathy, cervical region; M47.818 Spondylosis without myelopathy or radiculopathy, sacral and sacrococcygeal region; M43.16 Spondylolisthesis, lumbar region; M48.02 Spinal stenosis, cervical region; M25.512 Pain in left shoulder; M47.816 Spondylosis without myelopathy or radiculopathy, lumbar region; S13.4XXA Sprain of ligaments of cervical spine, initial encounter; G40.909 Epilepsy, unspecified, not intractable, without status epilepticus; M54.50 Low back pain, unspecified; Z79.891 Long term (current) use of opiate analgesic; X58.XXXA Exposure to other specified factors, initial encounter | CPT/HCPCS: 72050; 72110; 99214 ==

== ENCOUNTER → 2021-01-15 13:14 | Outpatient (BNVA) | payer MEDICAID, SELFPAY | PROVIDERS: PCP Internal Medicine; Visit Provider Nurse Practitioner Family | DX: J06.9 Acute upper respiratory infection, unspecified (principal); Z20.822 Contact with and (suspected) exposure to COVID-19; J02.9 Acute pharyngitis, unspecified; J44.1 Chronic obstructive pulmonary disease with (acute) exacerbation | CPT/HCPCS: 87400; 87426; 87635 ==

== ENCOUNTER → 2021-02-17 10:55 | Outpatient (BNVA) | payer MEDICAID, SELFPAY | PROVIDERS: PCP Internal Medicine; Visit Provider Anesthesiology | DX: G89.29 Other chronic pain (principal); M54.40 Lumbago with sciatica, unspecified side; M47.816 Spondylosis without myelopathy or radiculopathy, lumbar region; M43.16 Spondylolisthesis, lumbar region; S13.4XXA Sprain of ligaments of cervical spine, initial encounter; M48.02 Spinal stenosis, cervical region; M47.812 Spondylosis without myelopathy or radiculopathy, cervical region; M25.512 Pain in left shoulder; M79.622 Pain in left upper arm; X58.XXXA Exposure to other specified factors, initial encounter; Z79.891 Long term (current) use of opiate analgesic | CPT/HCPCS: 99214 ==

== ENCOUNTER → 2021-03-16 16:29 | Outpatient (BNVA) | payer MEDICAID, SELFPAY | PROVIDERS: PCP Internal Medicine; Visit Provider Nurse Practitioner Family | DX: Z20.822 Contact with and (suspected) exposure to COVID-19 (principal) | CPT/HCPCS: 87635 ==

== ENCOUNTER → 2021-04-20 11:40 | Outpatient (BNVA) | payer MEDICAID, SELFPAY | PROVIDERS: PCP Internal Medicine; Visit Provider Nurse Practitioner | DX: R05.9 Cough, unspecified (principal) | CPT/HCPCS: 87400 ==

== ENCOUNTER → 2021-05-01 09:58 | Outpatient (BNVA) | payer MEDICAID, SELFPAY | PROVIDERS: PCP Internal Medicine; Visit Provider Internal Medicine | DX: J44.1 Chronic obstructive pulmonary disease with (acute) exacerbation (principal); J41.0 Simple chronic bronchitis; Z13.1 Encounter for screening for diabetes mellitus | CPT/HCPCS: 71046 ==

== ENCOUNTER → 2021-05-01 11:25 | Outpatient (BNVA) | payer MEDICAID, SELFPAY | PROVIDERS: PCP Internal Medicine; Visit Provider Nurse Practitioner Family | DX: J44.1 Chronic obstructive pulmonary disease with (acute) exacerbation (principal); Z13.1 Encounter for screening for diabetes mellitus | CPT/HCPCS: 80053; 85025 ==

== ENCOUNTER → 2021-06-22 13:57 | Outpatient (BNVA) | payer MEDICAID, SELFPAY | PROVIDERS: PCP Internal Medicine; Visit Provider Internal Medicine Cardiovascular Disease | DX: I34.1 Nonrheumatic mitral (valve) prolapse (principal); R07.89 Other chest pain; J41.0 Simple chronic bronchitis; G47.30 Sleep apnea, unspecified | CPT/HCPCS: 99204 ==

== ENCOUNTER 2021-08-25 08:54 | Outpatient (CLI) | payer MEDICAID, SELFPAY ==
--- NOTE | 2021-08-25 09:09 | CT_ITS ---
WS: [id number] CT HEAD NONCONTRAST HISTORY: bony mass on occiput TECHNIQUE: Contiguous axial imaging performed through the brain in 2.5 mm imaging. Bone and soft tiss ue windows. Sagittal and coronal reformats reviewed. All CT scans at [facility] use at least one of these dose optimization techniques: automated exposure control; mA and/or kV adjustment per pa tient size (includes targeted exams where dose is matched to clinical indication); or iterative recon struction. DLP: 1055.13 mGy.cm COMPARISON: 10/30/2017 No acute intracranial hemorrhage, midline shift or mass effect. Very mild atrophy and small vessel ischemic disease. No prior infarct. Ventricles: Normal size with no hydrocephalus. Protuberance along the posterior occipital region in the midline corresponds to a prominent inion mike suring 15 x 8 mm. Paranasal sinuses: As visualized are clear. Mastoid air cells: Well pneumatized. Calvarium and scalp: Skull is intact with no soft tissue edema or swelling. CT/CT head wo con* [id number] IMPRESSION: 1. Palpable area along the midline of the occipital region corresponds to the inion. This is the attachment site for the ligamentum nuchae and trapezius mus anna. 2. Otherwise very mild atrophy and small vessel ischemic disease.
== END 2021-08-25 08:55 | disposition home or self-care (01) ==
LOC: RAD 08:57
PROVIDERS: PCP Internal Medicine; Visit Provider Internal Medicine
DX: M89.8X8 Other specified disorders of bone, other site (principal)
CPT/HCPCS: 70450

== ENCOUNTER 2021-10-16 14:46 | Outpatient (CLI) | payer MEDICAID, SELFPAY ==
--- NOTE | 2021-10-16 15:00 | USCV_ITS ---
Adiel Suzie Age: 56 Gender: F : 1965 Exam Date: 10/16/2021 15:07 Ordering Phys: Blu Eric MD ([email or web address]) Technologist: Mechelle Velasco [place] [facility] [place] CP, SOB/ MVP BP: 137 / 72 HR: 68 Rhythm: Sinus Technical Quality: Fair MEASUREMENTS (Male / Female) Normal Values 2D ECHO LV Diastolic Diameter PLAX 3.2 cm 4.2 - 5.9 / 3.9 - 5.3 cm LV Systolic Diameter PLAX 2.0 cm IVS Diastolic Thickness 1.9 cm 0.6 - 1.0 / 0.6 - 0.9 cm IVS Systolic Thickness 1.4 cm LVPW Diastolic Thickness 1.3 cm 0.6 - 1.0 / 0.6 - 0.9 cm LVPW Systolic Thickness 1.7 cm LVOT Diameter 2.1 cm LV Ejection Fraction 2D Teich 67.5 % LV Ejection Fraction MOD 2C 65.7 % LV Ejection Fraction 2C AL 65.7 % LA Diameter 2.8 cm LA Width 2.9 cm LA Height 5.2 cm RA Width 2.7 cm RA Height 4.4 cm Aorta at Sinotubular Diameter 3.1 cm IVC Diameter 2.2 cm M-MODE MV E Point Septal Separation 0.4 cm DOPPLER AV Peak Velocity 131.0 cm/s LVOT Peak Velocity 130.0 cm/s AV Area Cont Eq vti 3.3 cm squared AV Area Cont Eq pk 3.6 cm squared MV Peak Velocity 98.0 cm/s MV Area PHT 2.6 cm squared Mitral E to A Ratio 1.1 MV E' Velocity 49.0 cm/s Mitral E to MV E' Ratio 20.1 Mitral E to LV E' Lateral Ratio 24.8 Mitral E to LV E' Septal Ratio 16.8 TR Peak Velocity 93.0 cm/s TR Peak Gradient 3.5 mmHg Right Atrial Pressure 3.0 mmHg Pulmonary Artery Systolic Pressu 6.5 mmHg RV Acceleration Time 0.1 s RV Ejection Time 0.3 s RV AcT/ET 0.4 FINDINGS Left Ventricle Left ventricle is normal in size. LV systolic function is normal with EF 55 to 60%. No regional motion abnormalities are seen. Right Ventricle Normal in size and function Right Atrium Normal in size Left Atrium Normal in size Mitral Valve Grossly normal mitral valve. Mild mitral regurgitation Aortic Valve Structurally normal aortic valve. No significant aortic stenosis or regurgitation. Tricuspid Valve Grossly normal. No significant stenosis or regurgitation. Pulmonic Valve Not well-visualized Pericardium Normal Aorta Normal in size IVC IVC appears to be normal CONCLUSIONS LV systolic function is normal with EF of 55 to 60%. Normal mitral valve. Mild mitral regurgitation No comparison studies are available David Powell MD (Electronically Signed) Final Date: 31 October 2021 12:52 S
== END 2021-10-16 14:47 | disposition home or self-care (01) ==
PROVIDERS: PCP Internal Medicine; Visit Provider Internal Medicine Cardiovascular Disease
DX: I34.1 Nonrheumatic mitral (valve) prolapse (principal); R06.00 Dyspnea, unspecified
CPT/HCPCS: 93306

== ENCOUNTER 2021-11-16 14:38 | Emergency (ER) | payer MEDICAID, SELFPAY ==
[2021-11-16 14:43] VITALS: PULSE 75; RESP 20; TEMP 36.8; O2SAT 98; BMI 36.0
--- NOTE | 2021-11-16 14:53 | XRR_ITS ---
PROCEDURE INFORMATION: Exam: XR Chest Exam date and time: 11/16/2021 3:28 PM Age: 56 years old Clinical indication: Pain; Angina pectoris; Additional info: Chest pain TECHNIQUE: Imaging protocol: Radiologic exam of the chest. Views: 1 view. COMPARISON: CR XR chest 2V* [id number] 05/01/2021 11:11 AM FINDINGS: Lungs: Unremarkable. No consolidation. Pleural spaces: Unremarkable. No pleural effusion. No pneumothorax. Heart/Mediastinum: Unremarkable. No cardiomegaly. Bones/joints: Unremarkable. XR/XR chest 1V portable [id number] IMPRESSION: No acute findings.
--- NOTE | 2021-11-16 15:01 | ECG_ITS ---
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 Measurements Intervals [place] Rate: 73 P: 58 [place]: 194 QRS: -40 QRSD: 84 T: 70 QT: 386 QTc: 427 Interpretive Statements SINUS RHYTHM LEFT AXIS DEVIATION [QRS AXIS < -30] PATTERN CONSISTENT WITH PULMONARY DISEASE PROBABLE SEPTAL MYOCARDIAL INFARCTION , PROBABLY OLD [35 ms Q WAVE IN V1/V2] Compared to ECG 12/10/2019 09:37:04 Left-axis deviation now present Myocardial infarct finding now present Electronically Signed On 11-16-2021 21:25:51 CDT by Blu Eric M.D. [id number]
[2021-11-16 15:44] VITALS: BP 137/87; PULSE 70; RESP 17; O2SAT 96
--- NOTE | 2021-11-16 16:19 | W.ED.CHESTPA ---
HPI - Chest Pain General: Chief Complaint: Chest Pain Stated Complaint: Chest Pain Time Seen by Provider: 11/16/21 15:02 History of Present Illness: 56-year-old female presents with chest pain. Patient reports has been going on and off for couple months. Patient reports that about 3 weeks ago she was seen and received echocardiogram. She comes in today because she feels like is getting more frequent. Its on the right side. She also complains of some chest tightness occasionally with it. Patient does have a history of chronic lung disease. Patient denies any diaphoresis, radiation of the pain or significant acute changes besides feels like it is more frequent. Associated symptoms: Reports dyspnea (Chronic); Deny abdominal pain, fever(s), nausea, palpitations or vomiting Review of Systems Const: Denies: fever(s) or chills Eyes: Denies: change in vision ENMT: Denies: throat pain or ear or mastoid pain Card: Reports: chest pain; Denies: palpitations, irregular heart rhythm, edema or lightheadedness Resp: Reports: dyspnea (Chronic); Denies: wheezing GI: Denies: abdominal pain, nausea or vomiting : Denies: flank pain or difficulty voiding Musc: Denies: neck pain, back pain or extremity swelling Skin/Breast: Denies: rash PFSH ED PFSH: Medical History Chronic left shoulder pain Chronic low back pain with sciatica Chronic neck pain COPD (chronic obstructive pulmonary disease) Encounter for long-term opiate analgesic use Mitral valve prolapse Pain management contract signed PTSD (post-traumatic stress disorder) Schizophrenia Sleep apnea Sleep apnea Family History Father No problems noted. Mother No problems noted. Other Adopted Social History Smoking and tobacco status: never smoked Second hand smoke exposure: Yes Smoking risk assessment/counseling performed?: Yes Tobacco counseling given: provider counseling and counseling >3 minutes Alcohol intake: never Marital status: Current occupational status: disabled History of recent travel: No Physical Exam Const: COMMON NORMALS: no acute distress and patient oriented x3 NUTRITIONAL APPEARANCE: obese centrally obese Resp: COMMON NORMALS: normal respiratory effort, No retractions, No use of accessory muscles and clear to auscultation bilaterally AUSCULTATION: clear to auscultation bilaterally Cardio: COMMON NORMALS: regular rate and regular rhythm RATE: regular rate RHYTHM: regular rhythm GI: COMMON NORMALS: Normal to inspection, nondistended, normoactive bowel sounds present and Soft to palpation PALPATION: Yes Soft to palpation Extremity: COMMON NORMALS: normal to inspection, full ROM and capillary refill normal Neuro: COMMON NORMALS: patient oriented x3, moves all extremities and no focal motor deficits Psych: COMMON NORMALS: mental status grossly normal, cooperative and normal affect Skin: COMMON NORMALS: no rashes or lesions noted GENERAL SKIN EXAM: no rashes or lesions noted Course Vital Signs: Vital signs: Vital Signs Temperature 98.3 F 11/16/21 14:43 Pulse Rate 70 11/16/21 15:44 Respiratory Rate 17 11/16/21 15:44 Blood Pressure 137/87 11/16/21 15:44 Pulse Oximetry 96 11/16/21 15:44 Oxygen Delivery Me thod 11/16/21 15:44 MDM - Chest Pain Medical Decision Making Patient with no acute findings on EKG. Patient with negative labs negative troponin. Patient echo was reviewed and showed normal LV function and no significant findings. Patient chest pain is longstanding on the right side. Discussed with her the need to continue to follow-up with her primary care provider along with her staff psychiatrist for further evaluation as there appears to be no acute findings and is been going on for months. Patient stable and discharged home Lab Data : 11/16/21 16:15 11/16/21 16:15 Radiology Impressions Chest X-Ray 11/16/21 14:53 IMPRESSION: No acute findings. Laboratory Results WBC 6.8 10^3/uL (4.0-10.0) 11/16/21 16:15 RBC 4.92 10^6/uL (4.1-5.3) 11/16/21 16:15 Hgb 14.4 g/dL (11.5-15.3) 11/16/21 16:15 Hct 43.6 % (37.0-47.0) 11/16/21 16:15 MCV 88.6 fl (81-99) 11/16/21 16:15 MCH 29.3 pg (28.0-34.0) 11/16/21 16:15 MCHC 33.0 g/dL (30.0-36.0) 11/16/21 16:15 RDW 12.5 % (12.1-15.1) 11/16/21 16:15 Plt Count 206 10^3/cmm (130-400) 11/16/21 16:15 MPV 9.9 fL (7.4-10.4) 11/16/21 16:15 Neut % (Auto) 76.1 % 11/16/21 16:15 Lymph % (Auto) 15.3 % 11/16/21 16:15 [place] % (Auto) 6.5 % 11/16/21 16:15 Eos % (Auto) 1.6 % 11/16/21 16:15 Baso % (Auto) 0.1 % 11/16/21 16:15 Neut # (Auto) 5.15 10^3/uL (1.8-7.7) 11/16/21 16:15 Lymph # (Auto) 1.0 10^3/uL (0.8-4.8) 11/16/21 16:15 [place] # (Auto) 0.4 10^3/uL (0.2-0.9) 11/16/21 16:15 Eos # (Auto) 0.1 10^3/uL (0.0-0.8) 11/16/21 16:15 Baso # (Auto) 0.0 10^3/uL (0.0-0.1) 11/16/21 16:15 Nucleated RBC % (auto) 0 % 11/16/21 16:15 Nucleated RBCs # 0.0 /100WBC 11/16/21 16:15 Sodium 140 mmol/L (136-145) 11/16/21 16:15 Potassium 4.0 mmol/L (3.5-5.1) 11/16/21 16:15 Chloride 103 mmol/L (98-107) 11/16/21 16:15 Carbon Dioxide 26 mmol/L (22-29) 11/16/21 16:15 Anion Gap 15.0 (5-19) 11/16/21 16:15 BUN 16 mg/dL (6-20) 11/16/21 16:15 Creatinine 0.7 mg/dL (0.5-0.9) 11/16/21 16:15 GFR Calculation 86.6 mL/min (90-130) L 11/16/21 16:15 Glucose 113 mg/dL (65-115) 11/16/21 16:15 Calculated Osmolality 292 mOsm/kg (285-295) 11/16/21 16:15 Calcium 9.0 mg/dL (8.5-10.5) 11/16/21 16:15 Total Bilirubin 0.2 mg/dL (0.15-1.2) 11/16/21 16:15 AST 19 U/L (0-32) 11/16/21 16:15 ALT 13 U/L (0-33) 11/16/21 16:15 Alkaline Phosphatase 120 U/L (35-105) H 11/16/21 16:15 Troponin T Baseline 6 ng/L (0-10) 11/16/21 16:15 Total Protein 7.0 g/dL (6.6-8.7) 11/16/21 16:15 Albumin 4.1 g/dL (3.5-5.2) 11/16/21 16:15 Globulin 2.9 g/dL (1.3-4.6) 11/16/21 16:15 EKG Data EKG 1: I personally reviewed and interpreted this EKG as follows: EKG interpretation date: 11/16/21 EKG interpretation time: 15:02 Interpretation: Heart rate 73, sinus rhythm, PA 194, QRS 84. Pulmonary pattern. No acute changes Discharge Plan Discharge Patient Disposition: Home Clinical Impression: Chronic chest pain Condition: Stable Prescriptions: No Action hydrocodone-acetaminophen 10-325 mg tablet 1 tab PO QID PRN (Reason: pain) 30 Days Qty: 120 0RF Rx Instructions: Fill on or after 03/05/21 furosemide 40 mg tablet 40 mg PO DAILY Qty: 90 6RF (DME) nebulizer and compressor Device See Rx Instructions .ROUTE .MEDSUPPLY Qty: 1 0RF Rx Instructions: As directed spironolacton-hydrochlorothiaz [Aldactazide] 25-25 mg tablet 1 tab PO DAILY Qty: 90 3RF Combivent Respimat 20-100 mcg/actuation mist 1 puff inhalation QID Qty: 4 0RF Rx Instructions: space evenly during waking hours mometasone-formoterol 200-5 mcg/actuation HFA aerosol inhaler 2 puff inhalation Q12H Qty: 13 0RF cholestyramine (with sugar) [Questran] 4 gram powder in packet 4 g PO DAILY Qty: 60 0RF Rx Instructions: administer w/meal; avoid other meds within 1hr before or 4-6hr after dose tizanidine 4 mg capsule 4 mg PO Q6H PRN (Reason: muscle spasticity) Qty: 30 4RF Rx Instructions: do not exceed 3 doses per 24 hrs omeprazole 20 mg capsule,delayed release(DR/EC) 20 mg PO DAILY Qty: 30 3RF ondansetron HCl 4 mg tablet 4 mg PO Q6H PRN (Reason: nausea and vomiting) Qty: 14 0RF Spiriva Respimat 2.5 mcg/actuation mist 2 puff inhalation DAILY Qty: 4 3RF Topamax 200 mg tablet See Rx Instructions .ROUTE .COMPLEX Rx Instructions: 200 mg in the morning and 300 mg at night albuterol sulfate 90 mcg/actuation HFA aerosol inhaler 2 puff inhalation QID PRN (Reason: shortness of breath or wheezing) Mucinex 1,200 mg tablet extended release 12hr 1,200 mg PO BID PRN (Reason: Congestion) Miralax 17 gram/dose Powder 4 g PO DAILY Discharge Orders: Discharge ED (Routine); Ordered 11/16/21 Ordered By: Anjum Boucher Referrals: Bryce French DO [Primary Care Provider] - Discharge Diet: Usual diet Discharge Activity: Resume usual activity Patient Instructions: Opioid Safety, Pain Management, Noncardiac Chest Pain (ED), Chest Pain (DC) Activity Restrictions/Additional Instructions: Please follow-up with your primary care provider and your staff psychiatrist for further outpatient work-up and evaluation Coding Level of Care Code ED Boardinghouse Keeper for Chg Fwd Exam Comprehensive
[2021-11-16 16:20] LABS: Basophils % 0.1 %; Eosinophils # 0.1 10^3/uL (0.0-0.8); Eosinophils % 1.6 %; Hematocrit 43.6 % (37.0-47.0); Hemoglobin 14.4 g/dL (11.5-15.3); Lymphocytes % 15.3 %; Mean Corpuscular Hemoglobin 29.3 pg (28.0-34.0); Mean Corpuscular Volume 88.6 fl (81-99); Mean Platelet Volume 9.9 fL (7.4-10.4); Monocytes # 0.4 10^3/uL (0.2-0.9); Monocytes % 6.5 %; Neutrophils # 5.15 10^3/uL (1.8-7.7); Neutrophils % 76.1 %; Nucleated Red Blood Cells % 0 %; Platelet Count 206 10^3/cmm (130-400); Red Blood Count 4.92 10^6/uL (4.1-5.3); Red Cell Distribution Width 12.5 % (12.1-15.1); White Blood Count 6.8 10^3/uL (4.0-10.0)
[2021-11-16 16:33] LABS: Alanine Aminotransferase 13 U/L (0-33); Albumin Level 4.1 g/dL (3.5-5.2); Alkaline Phosphatase 120 U/L (35-105); Blood Urea Nitrogen 16 mg/dL (6-20); Carbon Dioxide 26 mmol/L (22-29); Chloride 103 mmol/L (98-107); Creatinine Clr Calc Pharmacy 111.4781; Globulin 2.9 g/dL (1.3-4.6); Glomerular Filtration Rate 86.6 mL/min (90-130); Glucose 113 mg/dL (65-115); Osmolality Calculated 292 mOsm/kg (285-295); Sodium 140 mmol/L (136-145); Total Bilirubin 0.2 mg/dL (0.15-1.2)
[2021-11-16 16:38] LABS: Troponin(5th) Baseline 6 ng/L (0-10)
[2021-11-16 16:42] LABS: Aspartate Amino Transferase 19 U/L (0-32)
[2021-11-16 17:00] VITALS: BP 143/79; PULSE 68; RESP 18; O2SAT 96
[2021-11-16 17:01] VITALS: BP 126/80; PULSE 66; RESP 18; O2SAT 96
== END 2021-11-16 17:07 | disposition home or self-care (01) ==
PROVIDERS: Family Medicine; Emergency Provider Student in an Organized Health Care Education/Training Program; PCP Family Medicine
DX: G89.29 Other chronic pain (principal); R07.9 Chest pain, unspecified; Z77.22 Contact with and (suspected) exposure to environmental tobacco smoke (acute) (chronic); J44.9 Chronic obstructive pulmonary disease, unspecified
CPT/HCPCS: 71045; 80053; 84484; 85025; 93005; 99285

== ENCOUNTER 2022-04-15 17:00 | Emergency (ER) | payer MEDICAID, SELFPAY ==
[2022-04-15 17:01] VITALS: BP 143/91; PULSE 67; RESP 16; TEMP 36.4; O2SAT 97
--- NOTE | 2022-04-15 17:25 | XRR_ITS ---
PROCEDURE INFORMATION: Exam: XR Chest Exam date and time: 04/15/2022 5:32 PM Age: 56 years old Clinical indication: Pain; Left-sided; Prior surgery; Surgery date: 6+ months; Surgery type: Shoulder 2020; Additional info: Dyspnea/cough TECHNIQUE: Imaging protocol: Radiologic exam of the chest. Views: 1 view. COMPARISON: CR XR chest 1V portable [id number] 11/16/2021 3:28 PM FINDINGS: Lungs: No consolidative pulmonary infiltrates are noted. Pleural spaces: No pleural effusion. No pneumothorax. Heart/Mediastinum: No cardiomegaly. Bones/joints: Degenerative thoracic spine changes are noted. XR/XR chest 1V portable [id number] IMPRESSION: 1. No acute abnormality demonstrated. 2. There is no interval change from the prior examination.
--- NOTE | 2022-04-15 17:25 | ECG_ITS ---
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 Measurements Intervals [place] Rate: 65 P: 52 TN: 198 QRS: -17 QRSD: 92 T: 59 QT: 405 QTc: 422 Interpretive Statements SINUS RHYTHM POSSIBLE RIGHT VENTRICULAR CONDUCTION DELAY [RSR (QR) IN V1/V2] MODERATE VOLTAGE CRITERIA FOR LVH, CONSIDER NORMAL VARIANT [MEETS CRITERIA IN ONE OF: R(aVL), S(V1), R(V5), R(V5/V6)+S(V1)] POSSIBLE SEPTAL MYOCARDIAL INFARCTION , PROBABLY OLD [30 ms Q WAVE IN V1/V2] Compared to ECG 11/16/2021 15:01:53 Left-axis deviation no longer present Myocardial infarct finding still present Electronically Signed On 04-15-2022 23:43:17 OBJECTS CONSERVATOR by Blu Eric M.D. [id number]
--- NOTE | 2022-04-15 17:36 | W.ED.CHESTPA ---
Documented by User: Brent Mckeon DO 04/16/22 06:36 HPI - Chest Pain General: Chief Complaint: Chest Pain Stated Complaint: chest pain/tightness Time Seen by Provider: 04/15/22 17:25 Source: patient Mode of arrival: ambulatory History of Present Illness: 56-year-old female who presents to the emergency room with complaints of chest pain. Is worse when she takes a deep breath or move reproducible with palpation is been intermittently going on for a couple of weeks quite a bit worse today. She also fell through a hole in the floor when they were moving out of the house thinks she may have jammed her child today. She denies any fevers sweats or chills has not noticed anything else that exacerbates or relieves it. MD complaint: chest pain Timing of current episode: episodic Pain location: left chest Severity: moderate Quality: sharp Relieving factors: rest Exacerbating factors: inspiration, palpation and movement Associated symptoms: Deny abdominal pain, diaphoresis, dyspnea, fever(s), leg edema, nausea, palpitations, sense of impending doom, syncope or vomiting Review of Systems Const: Denies: fever(s) or diaphoresis Card: Denies: palpitations or syncope Resp: Denies: dyspnea GI: Denies: abdominal pain, nausea or vomiting PFSH ED PFSH: Medical History Chronic left shoulder pain Chronic low back pain with sciatica Chronic neck pain COPD (chronic obstructive pulmonary disease) Encounter for long-term opiate analgesic use Mitral valve prolapse Pain management contract signed PTSD (post-traumatic stress disorder) Schizophrenia Sleep apnea Sleep apnea Family History Father No problems noted. Mother No problems noted. Other Adopted Social History Smoking and tobacco status: never smoked Second hand smoke exposure: Yes Smoking risk assessment/counseling performed?: Yes Tobacco counseling given: provider counseling and counseling >3 minutes Alcohol intake: never Marital status: Current occupational status: disabled Physical Exam Const: COMMON NORMALS: no acute distress GENERAL APPEARANCE: cooperative and comfortable ORIENTATION/CONSCIOUSNESS: Yes awake, Yes oriented to person, Yes oriented to place and Yes oriented to time HENMT: COMMON NORMALS: normocephalic, atraumatic and hearing grossly normal bilaterally HEAD & SCALP: normocephalic and atraumatic Resp: COMMON NORMALS: normal respiratory effort, No retractions, No use of accessory muscles and clear to auscultation bilaterally AUSCULTATION: clear to auscultation bilaterally Cardio: COMMON NORMALS: regular rate, regular rhythm and No murmurs present (Cardio) RATE: regular rate RHYTHM: regular rhythm GI: COMMON NORMALS: Soft to palpation and No hepatosplenomegaly present AUSCULTATION: Yes normoactive bowel sounds PALPATION: Yes Soft to palpation, No Tenderness to palpation present (GI), No Guarding due to palpation present (GI) and Yes No hepatosplenomegaly present Extremity: COMMON NORMALS: normal to inspection, capillary refill normal, no clubbing, cyanosis or edema, no calf tenderness and no pedal edema Neuro: SENSORIUM/ORIENTATION: Yes oriented to person, Yes oriented to place and Yes oriented to time Skin: COMMON NORMALS: no rashes or lesions noted GENERAL SKIN EXAM: no rashes or lesions noted Course Vital Signs: Vital signs: Vital Signs Temperature 97.6 F 04/15/22 17:01 Pulse Rate 72 04/15/22 17:57 Respiratory Rate 19 H 04/15/22 17:57 Blood Pressure 145/94 04/15/22 17:57 Pulse Oximetry 95 04/15/22 17:57 Oxygen Delivery Me thod 04/15/22 17:01 MDM - Chest Pain Medical Decision Making Care signed out to Dr. Brand at change of shift. See final notes for diagnosis and disposition. Patient presents for chest pain is likely chest wall pain she is point tender and pain is worse with movement her troponin here is negative EKG x-ray is normal she is stable for discharge has to follow-up PCP and return if worsening. Lab Data 04/15/22 18:03 04/15/22 17:58 Radiology Impressions Chest X-Ray 04/15/22 17:25 IMPRESSION: 1. No acute abnormality demonstrated. 2. There is no interval change from the prior examination. Laboratory Results WBC 7.3 10^3/uL (4.0-10.0) 04/15/22 18:03 Corrected WBC Cancelled 04/15/22 17:58 RBC 4.44 10^6/uL (4.1-5.3) 04/15/22 18:03 Hgb 12.9 g/dL (11.5-15.3) 04/15/22 18:03 Hct 39.5 % (37.0-47.0) 04/15/22 18:03 MCV 89.0 fl (81-99) 04/15/22 18:03 MCH 29.1 pg (28.0-34.0) 04/15/22 18:03 MCHC 32.7 g/dL (30.0-36.0) 04/15/22 18:03 RDW 12.5 % (12.1-15.1) 04/15/22 18:03 Plt Count 205 10^3/cmm (130-400) 04/15/22 18:03 MPV 9.5 fL (7.4-10.4) 04/15/22 18:03 Gran % Cancelled 04/15/22 17:58 Neut % (Auto) 77.2 % 04/15/22 18:03 Lymph % (Auto) 13.8 % 04/15/22 18:03 [place] % (Auto) 5.5 % 04/15/22 18:03 Eos % (Auto) 2.7 % 04/15/22 18:03 Baso % (Auto) 0.3 % 04/15/22 18:03 Neut # (Auto) 5.65 10^3/uL (1.8-7.7) 04/15/22 18:03 Lymph # (Auto) 1.0 10^3/uL (0.8-4.8) 04/15/22 18:03 [place] # (Auto) 0.4 10^3/uL (0.2-0.9) 04/15/22 18:03 Eos # (Auto) 0.2 10^3/uL (0.0-0.8) 04/15/22 18:03 Baso # (Auto) 0.0 10^3/uL (0.0-0.1) 04/15/22 18:03 Absolute Gran (auto) Cancelled 04/15/22 17:58 Nucleated RBC % (auto) 0 % 04/15/22 18:03 Nucleated RBCs # 0.0 /100WBC 04/15/22 18:03 Sodium 140 mmol/L (136-145) 04/15/22 17:58 Potassium 3.9 mmol/L (3.5-5.1) 04/15/22 17:58 Chloride 104 mmol/L (98-107) 04/15/22 17:58 Carbon Dioxide 28 mmol/L (22-29) 04/15/22 17:58 Anion Gap 11.9 (5-19) 04/15/22 17:58 BUN 13 mg/dL (6-20) 04/15/22 17:58 Creatinine 0.6 mg/dL (0.5-0.9) 04/15/22 17:58 GFR Calculation 103.4 mL/min (90-130) 04/15/22 17:58 Glucose 111 mg/dL (65-115) 04/15/22 17:58 Calculated Osmolality 291 mOsm/kg (285-295) 04/15/22 17:58 Calcium 8.7 mg/dL (8.5-10.5) 04/15/22 17:58 Total Bilirubin 0.2 mg/dL (0.15-1.2) 04/15/22 17:58 AST 22 U/L (0-32) 04/15/22 17:58 ALT 19 U/L (0-33) 04/15/22 17:58 Alkaline Phosphatase 123 U/L (35-105) H 04/15/22 17:58 Troponin T Baseline 6 ng/L (0-10) 04/15/22 17:58 Total Protein 6.5 g/dL (6.6-8.7) L 04/15/22 17:58 Albumin 3.9 g/dL (3.5-5.2) 04/15/22 17:58 Globulin 2.6 g/dL (1.3-4.6) 04/15/22 17:58 Discharge Plan Discharge Patient Disposition: Home Clinical Impression: Chest pain Condition: Stable Prescriptions: New Naprosyn 500 mg tablet 500 mg PO BID PRN (Reason: pain) Qty: 20 0RF No Action hydrocodone-acetaminophen 10-325 mg tablet 1 tab PO QID PRN (Reason: pain) 30 Days Qty: 120 0RF Rx Instructions: Fill on or after 03/05/21 furosemide 40 mg tablet 40 mg PO DAILY Qty: 90 6RF (DME) nebulizer and compressor Device See Rx Instructions .ROUTE .MEDSUPPLY Qty: 1 0RF Rx Instructions: As directed spironolacton-hydrochlorothiaz [Aldactazide] 25-25 mg tablet 1 tab PO DAILY Qty: 90 3RF Combivent Respimat 20-100 mcg/actuation mist 1 puff inhalation QID Qty: 4 0RF Rx Instructions: space evenly during waking hours mometasone-formoterol 200-5 mcg/actuation HFA aerosol inhaler 2 puff inhalation Q12H Qty: 13 0RF cholestyramine (with sugar) [Questran] 4 gram powder in packet 4 g PO DAILY Qty: 60 0RF Rx Instructions: administer w/meal; avoid other meds within 1hr before or 4-6hr after dose naproxen 500 mg tablet 500 mg PO BID tizanidine 4 mg capsule 4 mg PO Q6H PRN (Reason: muscle spasticity) Qty: 30 4RF Rx Instructions: do not exceed 3 doses per 24 hrs ondansetron HCl 4 mg tablet 4 mg PO Q6H PRN (Reason: nausea and vomiting) Qty: 14 0RF Spiriva Respimat 2.5 mcg/actuation mist 2 puff inhalation DAILY Qty: 4 3RF omeprazole 20 mg capsule,delayed release(DR/EC) 20 mg PO DAILY Qty: 30 3RF Topamax 200 mg tablet See Rx Instructions .ROUTE .COMPLEX Rx Instructions: 200 mg in the morning and 300 mg at night albuterol sulfate 90 mcg/actuation HFA aerosol inhaler 2 puff inhalation QID PRN (Reason: shortness of breath or wheezing) Mucinex 1,200 mg tablet extended release 12hr 1,200 mg PO BID PRN (Reason: Congestion) Miralax 17 gram/dose Powder 4 g PO DAILY Discharge Orders: Discharge ED (Routine); Ordered 04/15/22 Ordered By: Marcelo Brand Referrals: Bryce French DO [Primary Care Provider] - 1-3 days Discharge Diet: Advance as tolerated Discharge Activity: Resume usual activity Patient Instructions: Chest Pain (ED) Coding Level of Care Code ED Assembler 1St Shift for Chg Fwd Documented by User: Marcelo Brand MD 04/15/22 19:16 HPI - Chest Pain General: Chief Complaint: Chest Pain Stated Complaint: chest pain/tightness Time Seen by Provider: 04/15/22 17:25 [facility] ED PFSH: Medical History Chronic left shoulder pain Chronic low back pain with sciatica Chronic neck pain COPD (chronic obstructive pulmonary disease) Encounter for long-term opiate analgesic use Mitral valve prolapse Pain management contract signed PTSD (post-traumatic stress disorder) Schizophrenia Sleep apnea Sleep apnea Family History Father No problems noted. Mother No problems noted. Other Adopted Social History Smoking and tobacco status: never smoked Second hand smoke exposure: Yes Smoking risk assessment/counseling performed?: Yes Tobacco counseling given: provider counseling and counseling >3 minutes Alcohol intake: never Marital status: Current occupational status: disabled Course Vital Signs: Vital signs: Vital Signs Temperature 97.6 F 04/15/22 17:01 Pulse Rate 72 04/15/22 17:57 Respiratory Rate 19 H 04/15/22 17:57 Blood Pressure 145/94 04/15/22 17:57 Pulse Oximetry 95 04/15/22 17:57 Oxygen Delivery Me thod 04/15/22 17:01 MDM - Chest Pain Medical Decision Making Patient presents for chest pain is likely chest wall pain she is point tender and pain is worse with movement her troponin here is negative EKG x-ray is normal she is stable for discharge has to follow-up PCP and return if worsening. Lab Data 04/15/22 18:03 04/15/22 17:58 Radiology Impressions Chest X-Ray 04/15/22 17:25 IMPRESSION: 1. No acute abnormality demonstrated. 2. There is no interval change from the prior examination. Laboratory Results WBC 7.3 10^3/uL (4.0-10.0) 04/15/22 18:03 Corrected WBC Cancelled 04/15/22 17:58 RBC 4.44 10^6/uL (4.1-5.3) 04/15/22 18:03 Hgb 12.9 g/dL (11.5-15.3) 04/15/22 18:03 Hct 39.5 % (37.0-47.0) 04/15/22 18:03 MCV 89.0 fl (81-99) 04/15/22 18:03 MCH 29.1 pg (28.0-34.0) 04/15/22 18:03 MCHC 32.7 g/dL (30.0-36.0) 04/15/22 18:03 RDW 12.5 % (12.1-15.1) 04/15/22 18:03 Plt Count 205 10^3/cmm (130-400) 04/15/22 18:03 MPV 9.5 fL (7.4-10.4) 04/15/22 18:03 Gran % Cancelled 04/15/22 17:58 Neut % (Auto) 77.2 % 04/15/22 18:03 Lymph % (Auto) 13.8 % 04/15/22 18:03 [place] % (Auto) 5.5 % 04/15/22 18:03 Eos % (Auto) 2.7 % 04/15/22 18:03 Baso % (Auto) 0.3 % 04/15/22 18:03 Neut # (Auto) 5.65 10^3/uL (1.8-7.7) 04/15/22 18:03 Lymph # (Auto) 1.0 10^3/uL (0.8-4.8) 04/15/22 18:03 [place] # (Auto) 0.4 10^3/uL (0.2-0.9) 04/15/22 18:03 Eos # (Auto) 0.2 10^3/uL (0.0-0.8) 04/15/22 18:03 Baso # (Auto) 0.0 10^3/uL (0.0-0.1) 04/15/22 18:03 Absolute Gran (auto) Cancelled 04/15/22 17:58 Nucleated RBC % (auto) 0 % 04/15/22 18:03 Nucleated RBCs # 0.0 /100WBC 04/15/22 18:03 Sodium 140 mmol/L (136-145) 04/15/22 17:58 Potassium 3.9 mmol/L (3.5-5.1) 04/15/22 17:58 Chloride 104 mmol/L (98-107) 04/15/22 17:58 Carbon Dioxide 28 mmol/L (22-29) 04/15/22 17:58 Anion Gap 11.9 (5-19) 04/15/22 17:58 BUN 13 mg/dL (6-20) 04/15/22 17:58 Creatinine 0.6 mg/dL (0.5-0.9) 04/15/22 17:58 GFR Calculation 103.4 mL/min (90-130) 04/15/22 17:58 Glucose 111 mg/dL (65-115) 04/15/22 17:58 Calculated Osmolality 291 mOsm/kg (285-295) 04/15/22 17:58 Calcium 8.7 mg/dL (8.5-10.5) 04/15/22 17:58 Total Bilirubin 0.2 mg/dL (0.15-1.2) 04/15/22 17:58 AST 22 U/L (0-32) 04/15/22 17:58 ALT 19 U/L (0-33) 04/15/22 17:58 Alkaline Phosphatase 123 U/L (35-105) H 04/15/22 17:58 Troponin T Baseline 6 ng/L (0-10) 04/15/22 17:58 Total Protein 6.5 g/dL (6.6-8.7) L 04/15/22 17:58 Albumin 3.9 g/dL (3.5-5.2) 04/15/22 17:58 Globulin 2.6 g/dL (1.3-4.6) 04/15/22 17:58 Discharge Plan Discharge Patient Disposition: Home Clinical Impression: Chest pain Condition: Stable Prescriptions: New Naprosyn 500 mg tablet 500 mg PO BID PRN (Reason: pain) Qty: 20 0RF No Action hydrocodone-acetaminophen 10-325 mg tablet 1 tab PO QID PRN (Reason: pain) 30 Days Qty: 120 0RF Rx Instructions: Fill on or after 03/05/21 furosemide 40 mg tablet 40 mg PO DAILY Qty: 90 6RF (DME) nebulizer and compressor Device See Rx Instructions .ROUTE .MEDSUPPLY Qty: 1 0RF Rx Instructions: As directed spironolacton-hydrochlorothiaz [Aldactazide] 25-25 mg tablet 1 tab PO DAILY Qty: 90 3RF Combivent Respimat 20-100 mcg/actuation mist 1 puff inhalation QID Qty: 4 0RF Rx Instructions: space evenly during waking hours mometasone-formoterol 200-5 mcg/actuation HFA aerosol inhaler 2 puff inhalation Q12H Qty: 13 0RF cholestyramine (with sugar) [Questran] 4 gram powder in packet 4 g PO DAILY Qty: 60 0RF Rx Instructions: administer w/meal; avoid other meds within 1hr before or 4-6hr after dose naproxen 500 mg tablet 500 mg PO BID tizanidine 4 mg capsule 4 mg PO Q6H PRN (Reason: muscle spasticity) Qty: 30 4RF Rx Instructions: do not exceed 3 doses per 24 hrs ondansetron HCl 4 mg tablet 4 mg PO Q6H PRN (Reason: nausea and vomiting) Qty: 14 0RF Spiriva Respimat 2.5 mcg/actuation mist 2 puff inhalation DAILY Qty: 4 3RF omeprazole 20 mg capsule,delayed release(DR/EC) 20 mg PO DAILY Qty: 30 3RF Topamax 200 mg tablet See Rx Instructions .ROUTE .COMPLEX Rx Instructions: 200 mg in the morning and 300 mg at night albuterol sulfate 90 mcg/actuation HFA aerosol inhaler 2 puff inhalation QID PRN (Reason: shortness of breath or wheezing) Mucinex 1,200 mg tablet extended release 12hr 1,200 mg PO BID PRN (Reason: Congestion) Miralax 17 gram/dose Powder 4 g PO DAILY Discharge Orders: Discharge ED (Routine); Ordered 04/15/22 Ordered By: Marcelo Brand Referrals: Bryce French DO [Primary Care Provider] - 1-3 days Discharge Diet: Advance as tolerated Discharge Activity: Resume usual activity Patient Instructions: Chest Pain (ED) Coding Level of Care Code ED Assembler 1St Shift for Mike Lin
[2022-04-15] MEDS: aspirin 81 mg Chew Tablet 324 MG PO (17:55)
[2022-04-15 17:57] VITALS: BP 145/94; PULSE 72; RESP 19; O2SAT 95
[2022-04-15 18:13] LABS: Basophils % 0.3 %; Eosinophils # 0.2 10^3/uL (0.0-0.8); Eosinophils % 2.7 %; Hematocrit 39.5 % (37.0-47.0); Hemoglobin 12.9 g/dL (11.5-15.3); Lymphocytes % 13.8 %; Mean Corpuscular HGB Conc 32.7 g/dL (30.0-36.0); Mean Corpuscular Hemoglobin 29.1 pg (28.0-34.0); Mean Platelet Volume 9.5 fL (7.4-10.4); Monocytes # 0.4 10^3/uL (0.2-0.9); Monocytes % 5.5 %; Neutrophils # 5.65 10^3/uL (1.8-7.7); Neutrophils % 77.2 %; Nucleated Red Blood Cells % 0 %; Platelet Count 205 10^3/cmm (130-400); Red Blood Count 4.44 10^6/uL (4.1-5.3); Red Cell Distribution Width 12.5 % (12.1-15.1); White Blood Count 7.3 10^3/uL (4.0-10.0)
[2022-04-15 18:34] LABS: Troponin(5th) Baseline 6 ng/L (0-10)
[2022-04-15 18:35] LABS: Carbon Dioxide 28 mmol/L (22-29); Total Bilirubin 0.2 mg/dL (0.15-1.2)
[2022-04-15 18:52] LABS: Alanine Aminotransferase 19 U/L (0-33); Albumin Level 3.9 g/dL (3.5-5.2); Alkaline Phosphatase 123 U/L (35-105); Anion Gap 11.9 (5-19); Aspartate Amino Transferase 22 U/L (0-32); Blood Urea Nitrogen 13 mg/dL (6-20); Calcium 8.7 mg/dL (8.5-10.5); Chloride 104 mmol/L (98-107); Globulin 2.6 g/dL (1.3-4.6); Glomerular Filtration Rate 103.4 mL/min (90-130); Glucose 111 mg/dL (65-115); Osmolality Calculated 291 mOsm/kg (285-295); Potassium 3.9 mmol/L (3.5-5.1); Sodium 140 mmol/L (136-145); Total Protein 6.5 g/dL (6.6-8.7)
== END 2022-04-15 19:21 | disposition home or self-care (01) ==
PROVIDERS: Family Medicine; Emergency Provider Emergency Medicine; PCP Family Medicine
DX: R07.9 Chest pain, unspecified (principal); Z77.22 Contact with and (suspected) exposure to environmental tobacco smoke (acute) (chronic); J44.9 Chronic obstructive pulmonary disease, unspecified
CPT/HCPCS: 71045; 80053; 84484; 85025; 93005; 99285

== ENCOUNTER → 2022-05-20 08:50 | Outpatient (BNVA) | payer MEDICAID, SELFPAY | PROVIDERS: PCP Family Medicine; Visit Provider Nurse Practitioner Family | DX: R06.02 Shortness of breath (principal) | CPT/HCPCS: 87426 ==

== ENCOUNTER 2022-06-06 12:48 | Emergency (ER) | payer MEDICAID, SELFPAY ==
[2022-06-06 12:59] VITALS: BP 135/69; PULSE 58; RESP 18; TEMP 36.7; O2SAT 94
--- NOTE | 2022-06-06 13:03 | XRR_ITS ---
PROCEDURE INFORMATION: Exam: XR Right Knee Exam date and time: 06/06/2022 12:12 PM Age: 56 years old Clinical indication: Right knee pain TECHNIQUE: Imaging protocol: Radiologic exam of the right knee. Views: 3 views. COMPARISON: No relevant prior studies available. FINDINGS: Bones/joints: Tricompartmental small marginal osteophyte formations. Soft tissues: Normal. XR/XR knee RT 3V* [id number] IMPRESSION: There are tricompartmental small marginal osteophyte formations consistent with primary osteoarthritic change.
--- NOTE | 2022-06-06 13:30 | W.ED.EXTPRO ---
HPI - Extremity Problem General: Chief complaint: Extremity Injury, Lower Stated complaint: RIGHT LEG PAIN FOR MONTHS Time Seen by Provider: 06/06/22 13:03 History of Present Illness: Patient is a 56-year-old female comes to the ED with chronic right knee pain. Patient says symptoms have been going on now for over a year. Patient sees pain management clinic for back pain and is currently on hydrocodone tens for pain. She describes right knee pain as a constant aching pain that occasionally radiates up her thigh. Any range of motion in knee causes worsening pain or when climbing stairs. She rates the pain currently a 10 out of 10. Denies any trauma or injury to cause pain. Associated symptoms: Deny chest pain, fever(s) or rash Review of Systems Const: Denies: fever(s), chills or fatigue Eyes: Denies: change in vision or eye discomfort ENMT: Denies: throat pain, odynophagia, nasal discharge or nasal congestion Card: Denies: chest pain, palpitations, edema, swelling of feet/ankles, dyspnea on exertion or orthopnea Resp: Denies: dyspnea, productive cough or non-productive cough GI: Denies: abdominal pain, nausea, vomiting, diarrhea, constipation or hematochezia : Denies: flank pain, dysuria or hematuria Musc: Reports: extremity pain (Right knee pain); Denies: neck pain, back pain or extremity swelling Skin/Breast: Denies: rash or new lesions Neuro: Denies: headache(s), numbness in extremities or weakness in extremities PFS ED PFSH: Medical History CAD (coronary artery disease) Chronic left shoulder pain Chronic low back pain with sciatica Chronic neck pain COPD (chronic obstructive pulmonary disease) Encounter for long-term (current) use of NSAIDs Encounter for long-term opiate analgesic use Fibromyalgia GERD (gastroesophageal reflux disease) History of CVA (cerebrovascular accident) Hx of myocardial infarction Mitral valve prolapse Pain management contract signed PTSD (post-traumatic stress disorder) Schizophrenia Seizures Sleep apnea Sleep apnea Surgical History History of cholecystectomy History of hysterectomy History of oral surgery Hx of shoulder surgery Family History Father No problems noted. Mother No problems noted. Other Adopted Social History Smoking and tobacco status: never smoked Second hand smoke exposure: Yes Smoking risk assessment/counseling performed?: Yes Tobacco counseling given: provider counseling and counseling >3 minutes Alcohol intake: never Substance/Drug Use: never Marital status: Current occupational status: disabled Physical Exam Const: COMMON NORMALS: no acute distress, patient oriented x3 and alert HENMT: COMMON NORMALS: normocephalic HEAD & SCALP: normocephalic MOUTH: Normal oral and palatal mucosa present THROAT: posterior oropharynx normal and uvula midline Neck/C-Spine: COMMON NORMALS: supple GENERAL: Yes normal visual inspection Resp: COMMON NORMALS: normal respiratory effort, No retractions, No use of accessory muscles and clear to auscultation bilaterally AUSCULTATION: clear to auscultation bilaterally Cardio: COMMON NORMALS: regular rate, regular rhythm, S1 normal heart sound present, S2 normal heart sound present, No gallops present (Cardio), No clicks present (Cardio), No murmurs present (Cardio) and Peripheral pulses 2+ throughout RATE: regular rate RHYTHM: regular rhythm HEART SOUNDS: S1 normal heart sound present and S2 normal heart sound present PERIPHERAL PULSES: Peripheral pulses 2+ throughout GI: COMMON NORMALS: Normal to inspection, nondistended, normoactive bowel sounds present, Soft to palpation, non-tender and no masses PALPATION: Yes Soft to palpation : COMMON NORMALS: Yes no CVA tenderness BLADDER/KIDNEY EXAM: Yes no CVA tenderness Back/Pelvis: COMMON NORMALS: no CVA tenderness Extremity: COMMON NORMALS: normal to inspection Neuro: COMMON NORMALS: patient oriented x3 SENSORIUM/ORIENTATION: Yes alert GAIT: Yes Normal gait present Skin: GENERAL SKIN EXAM: dry skin Course Vital Signs: Vital signs: Vital Signs Temperature 98.1 F 06/06/22 12:59 Pulse Rate 62 06/06/22 14:21 Respiratory Rate 16 06/06/22 14:21 Blood Pressure 135/69 06/06/22 12:59 Pulse Oximetry 96 06/06/22 14:21 Oxygen Delivery Me thod Room Air 06/06/22 12:59 MDM - Extremity (Nontraumatic) Medical Decision Making Patient is a 56-year-old female comes to the ED with chronic right knee pain. Patient says symptoms have been going on now for over a year. Patient sees pain management clinic for back pain and is currently on hydrocodone tens for pain. She describes right knee pain as a constant aching pain that occasionally radiates up her thigh. Any range of motion in knee causes worsening pain or when climbing stairs. She rates the pain currently a 10 out of 10. Denies any trauma or injury to cause pain. Vitals are stable exam is benign. Patient appears in no acute distress or pain. X-ray of knee showed no acute fractures but did note some primary osteoarthritic changes. Patient was stable for discharge home and diagnosed with right knee pain likely due to osteoarthritis. She was sent home with a prescription for meloxicam and told to follow-up with her PCP for further management of knee pain and possible referral to Ortho if needed. Return to ED precautions given. Patient understood and agreed with plan Lab Data Radiology Impressions Knee X-Ray 06/06/22 13:03 IMPRESSION: There are tricompartmental small marginal osteophyte formations consistent with primary osteoarthritic change. Discharge Plan Discharge Patient Disposition: Home Clinical Impression: Chronic pain of right knee Condition: Stable Prescriptions: New meloxicam 15 mg tablet 15 mg PO DAILY PRN (Reason: pain) Qty: 20 0RF No Action hydrocodone-acetaminophen 10-325 mg tablet 1 tab PO QID PRN (Reason: pain) 30 Days Qty: 120 0RF Rx Instructions: Fill on or after 03/05/21 furosemide 40 mg tablet 40 mg PO DAILY Qty: 90 6RF (DME) nebulizer and compressor Device See Rx Instructions .ROUTE .MEDSUPPLY Qty: 1 0RF Rx Instructions: As directed spironolacton-hydrochlorothiaz [Aldactazide] 25-25 mg tablet 1 tab PO DAILY Qty: 90 3RF Combivent Respimat 20-100 mcg/actuation mist 1 puff inhalation QID Qty: 4 0RF Hold Instructions: Dose Change Rx Instructions: space evenly during waking hours venlafaxine [Effexor XR] 37.5 mg capsule,extended release 24hr 37.5 mg PO DAILY Qty: 30 0RF sumatriptan succinate 50 mg tablet See Rx Instructions PO .COMPLEX Qty: 10 0RF Rx Instructions: take 1 tab at onset of headache; if no relief may repeat 1 tab after at least 2 hrs; max = 4 tabs/24 hr PO omeprazole 40 mg capsule,delayed release(DR/EC) 40 mg PO DAILY Qty: 90 1RF ondansetron HCl 4 mg tablet 4 mg PO Q6H PRN (Reason: nausea and vomiting) Qty: 30 0RF mometasone-formoterol 200-5 mcg/actuation HFA aerosol inhaler 2 puff inhalation Q12H Qty: 13 1RF albuterol sulfate 2.5 mg/0.5 mL solution for nebulization 5 mg inhalation Q6H PRN (Reason: shortness of breath or wheezing) Qty: 30 1RF cholestyramine (with sugar) [Questran] 4 gram powder in packet 4 g PO DAILY Qty: 60 0RF Rx Instructions: administer w/meal; avoid other meds within 1hr before or 4-6hr after dose naproxen 500 mg tablet 500 mg PO BID tizanidine 4 mg capsule 4 mg PO Q6H PRN (Reason: muscle spasticity) Qty: 30 4RF Rx Instructions: do not exceed 3 doses per 24 hrs Spiriva Respimat 2.5 mcg/actuation mist 2 puff inhalation DAILY Qty: 4 3RF Hold Instructions: Dose Change Topamax 200 mg tablet See Rx Instructions .ROUTE .COMPLEX Rx Instructions: 200 mg in the morning and 300 mg at night Miralax 17 gram/dose Powder 4 g PO DAILY Discharge Orders: Discharge ED (Routine); Ordered 06/06/22 Ordered By: Rafael Chiang Referrals: Murray Nagel MD [Primary Care Provider] - Discharge Diet: Regular Discharge Activity: Increase activity as tolerated Patient Instructions: Knee Pain (ED) Activity Restrictions/Additional Instructions: Follow-up with medical provider as directed in the next 7 to 10 days for reevaluation. Take medications as prescribed. Return to the ER or your medical provider if condition worsens. Please read and understand discharge instructions. Thank you for choosing [facility] for your healthcare needs today. Please realize this is an emergency room and that we are providing you with a medical screening exam and this may not be complete and all inclusive of all the testing and or work up that you may need to determine your ailment or severity of your illness. It is very important that you follow up as instructed or that you return to the Emergency Department should you have concerns or if your condition changes or worsens in any way. Coding Level of Care Code ED Monogram Maker for Mike Lin
[2022-06-06 13:41] VITALS: RESP 16
[2022-06-06] MEDS: morphine 4 mg/mL SDV 1 mL IM (13:41)
[2022-06-06 14:21] VITALS: PULSE 62; RESP 16; O2SAT 96
== END 2022-06-06 14:22 | disposition home or self-care (01) ==
PROVIDERS: Emergency Provider Physician Assistant; PCP Family Medicine
DX: G89.29 Other chronic pain (principal); M25.561 Pain in right knee; Z77.22 Contact with and (suspected) exposure to environmental tobacco smoke (acute) (chronic); I25.10 Atherosclerotic heart disease of native coronary artery without angina pectoris; J44.9 Chronic obstructive pulmonary disease, unspecified; Z86.73 Personal history of transient ischemic attack (TIA), and cerebral infarction without residual deficits; I25.2 Old myocardial infarction
CPT/HCPCS: 73562; 96372; 99284; J2270

== ENCOUNTER 2022-06-10 14:57 | Outpatient (CLI) | payer MEDICAID, SELFPAY ==
--- NOTE | 2022-06-10 15:15 | MR_ITS ---
WS: [id number] MRI RIGHT KNEE NONCONTRAST TECHNIQUE: Axial PD, coronal PD fat sat, coronal PD, sagittal PD, and sagittal PD fat-sat images obta ined. CLINICAL INFORMATION: Medial joint comppartment pain COMPARISON: None. FINDINGS: Moderate tricompartmental arthritis worse in the medial joint compartment. Hypertrophic changes along the joint line. Small suprapatellar effusion. Hypertrophic patella. Distal quadriceps and patella tendons are intact. Moderate suprapatellar effusion. Hypertrophic galindo la. Normal ACL and PCL. Chronic thinning of the medial and lateral meniscus. Tear involving the anter ior horn lateral meniscus extending to the articular surface. Additional tear involving the posterior horn medial meniscus extending to the articular surface with a small parameniscal cyst. This also ex tends to the meniscal root with blunting of the posterior horn. Moderate to advanced chondromalacia medial and lateral joint compartments. Normal MCL and LCL. Modera te to advanced chondromalacia patella worse involving the medial patella facet. Normal lateral collat eral ligament. Normal popliteus. Tiny MCL remnant likely due to chronic tear. MR/MR knee RT wo con* [id number] IMPRESSION: 1. Normal ACL and PCL. 2. Moderate tricompartmental arthritis. 3. Complex tear posterior horn medial meniscus with blunting. Additional tear also with chronic intrasubstance signal abnormality involving the anterior horn lateral meniscus. 4. Small perimeniscal cyst along the posterior horn medial meniscus. Small par ameniscal cyst measures 6 to 7 mm. 5. Advanced chondromalacia patella. 6. Chronic appearing tear of the MCL. LCL appears intact. Outbridge grading:
== END 2022-06-10 14:58 | disposition home or self-care (01) ==
LOC: RAD 14:59
PROVIDERS: PCP Family Medicine; Visit Provider Family Medicine
DX: G89.29 Other chronic pain (principal); M13.861 Other specified arthritis, right knee; S83.231A Complex tear of medial meniscus, current injury, right knee, initial encounter; X58.XXXA Exposure to other specified factors, initial encounter; M23.021 Cystic meniscus, posterior horn of medial meniscus, right knee; M22.41 Chondromalacia patellae, right knee
CPT/HCPCS: 73721

== ENCOUNTER → 2022-06-16 13:34 | Outpatient (BNVA) | payer MEDICAID, SELFPAY | PROVIDERS: PCP Family Medicine; Referring Provider Family Medicine; Visit Provider Orthopaedic Surgery | DX: M17.11 Unilateral primary osteoarthritis, right knee (principal) | CPT/HCPCS: 20610; 99213; J0702; J3490 ==

== ENCOUNTER → 2022-07-07 14:30 | Outpatient (BNVA) | payer MEDICAID, SELFPAY | PROVIDERS: PCP Family Medicine; Visit Provider Orthopaedic Surgery | DX: M25.561 Pain in right knee (principal); G89.29 Other chronic pain | CPT/HCPCS: 99213 ==

== ENCOUNTER 2022-07-31 14:36 | Emergency (ER) | payer MEDICAID, SELFPAY ==
[2022-07-31 14:39] VITALS: BP 184/100; PULSE 73; RESP 16; TEMP 36.8; O2SAT 94; BMI 34.4
--- NOTE | 2022-07-31 16:20 | XRR_ITS ---
PROCEDURE INFORMATION: Exam: XR Chest Exam date and time: 07/31/2022 4:30 PM Age: 56 years old Clinical indication: Cough and dyspnea; TECHNIQUE: Imaging protocol: Radiologic exam of the chest. Views: 1 view. COMPARISON: CR XR chest 1V portable [id number] 04/15/2022 5:32 PM FINDINGS: Lungs: Unremarkable. No consolidation. Pleural spaces: Unremarkable. No pleural effusion. No pneumothorax. Heart/Mediastinum: Unremarkable. No cardiomegaly. Bones/joints: Unremarkable. XR/XR chest 1V portable [id number] IMPRESSION: No acute findings.
--- NOTE | 2022-07-31 16:27 | ED_ITS ---
HPI - Extremity Problem General: Chief complaint: Extremity Problem,Nontraumatic Stated complaint: SOB, swollen legs, itching, burning legs Time Seen by Provider: 07/31/22 16:19 Source: patient Mode of arrival: ambulatory History of Present Illness: 56-year-old female who presents to the emergency room with complaints of swellin g in her lower extremities and some redness itching she has had this for the last 2 weeks she is on Lasix 40 mg daily she has been taking regularly feels like it has not really helped. But she uses oxygen at night her oxygen sats on arrival here are normal she says she has been a little more short of breath she has not really had any particular orthopnea. She denies any fever sweats or chills. MD Complaint: extremity swelling Onset (ago): day(s) Pain Consistency: constant Quality: aching Relieving factors: nothing Exacerbating factors: nothing Associated symptoms: Reports short of breath; Deny arthralgias, chest pain, fever(s), myalgias or rash Review of Systems Const: Denies: fever(s) ENMT: Denies: throat pain, ear or mastoid pain, nasal discharge or nasal congestion Card: Denies: chest pain Resp: Denies: dyspnea, productive cough or non-productive cough GI: Denies: abdominal pain, nausea or vomiting : Denies: flank pain, difficulty voiding, dysuria, urinary frequency or urinary urgency Skin/Breast: Denies: rash PFSH ED PFSH: Medical History CAD (coronary artery disease) Chronic left shoulder pain Chronic low back pain with sciatica Chronic neck pain COPD (chronic obstructive pulmonary disease) Encounter for long-term (current) use of NSAIDs Encounter for long-term opiate analgesic use Fibromyalgia GERD (gastroesophageal reflux disease) History of CVA (cerebrovascular accident) Hx of myocardial infarction Mitral valve prolapse Pain management contract signed PTSD (post-traumatic stress disorder) Schizophrenia Seizures Sleep apnea Sleep apnea Surgical History History of cholecystectomy History of hysterectomy History of oral surgery Hx of shoulder surgery Family History Father No problems noted. Mother No problems noted. Other Adopted Social History Smoking and tobacco status: never smoked Second hand smoke exposure: Yes Smoking risk assessment/counseling performed?: Yes Tobacco counseling given: provider counseling and counseling >3 minutes Alcohol intake: never Substance/Drug Use: never Lives independently: Yes Marital status: Current occupational status: disabled Physical Exam Const: GENERAL APPEARANCE: cooperative and comfortable ORIENTATION/CONSCIOUSNESS: Yes awake, Yes oriented to person, Yes oriented to place and Yes oriented to time HENMT: COMMON NORMALS: normocephalic, atraumatic and hearing grossly normal bilaterally HEAD & SCALP: normocephalic and atraumatic Resp: COMMON NORMALS: normal respiratory effort, No retractions, No use of accessory muscles and clear to auscultation bilaterally AUSCULTATION: clear to auscultation bilaterally Cardio: COMMON NORMALS: regular rate, regular rhythm and No murmurs present (Cardio) RATE: regular rate RHYTHM: regular rhythm GI: COMMON NORMALS: Soft to palpation and No hepatosplenomegaly present AUSCULTATION: Yes normoactive bowel sounds PALPATION: Yes Soft to palpation, No Tenderness to palpation present (GI), No Guarding due to palpation present (GI) and Yes No hepatosplenomegaly present Extremity: COMMON NORMALS: normal to inspection, capillary refill normal and no calf tenderness GENERAL: Yes edema Neuro: SENSORIUM/ORIENTATION: Yes oriented to person, Yes oriented to place and Yes oriented to time Skin: COMMON NORMALS: no rashes or lesions noted GENERAL SKIN EXAM: no rashes or lesions noted Course Vital Signs: Vital signs: Vital Signs Temperature 98.2 F 07/31/22 14:39 Pulse Rate 77 07/31/22 19:04 Respiratory Rate 18 07/31/22 19:04 Blood Pressure 177/85 07/31/22 19:04 Pulse Oximetry 95 07/31/22 19:04 Oxygen Delivery Me thod Room Air 07/31/22 14:39 MDM - Extremity (Nontraumatic) Medical Decision Making Labs imaging and EKG reviewed no acute findings on EKG troponins unremarkable. He does believe she is fluid overloaded she has some improvement with Lasix given here we will double her Lasix for the next 2 days never follow-up with primary care doctor return if she has further problems. Medical Records I reviewed the patient's medical records. Lab Data I reviewed the patient's lab results. 07/31/22 17:57 07/31/22 16:53 Radiology Impressions Chest X-Ray 07/31/22 16:20 IMPRESSION: No acute findings. Laboratory Results WBC 8.1 10^3/uL (4.0-10.0) 07/31/22 17:57 RBC 4.19 10^6/uL (4.1-5.3) 07/31/22 17:57 Hgb 12.0 g/dL (11.5-15.3) 07/31/22 17:57 Hct 39.3 % (37.0-47.0) 07/31/22 17:57 MCV 93.8 fl (81-99) 07/31/22 17:57 MCH 28.6 pg (28.0-34.0) 07/31/22 17:57 MCHC 30.5 g/dL (30.0-36.0) 07/31/22 17:57 RDW 13.7 % (12.1-15.1) 07/31/22 17:57 Plt Count 143 10^3/cmm (130-400) 07/31/22 17:57 MPV 10.7 fL (7.4-10.4) H 07/31/22 17:57 Neut % (Auto) 79.1 % 07/31/22 17:57 Lymph % (Auto) 11.0 % 07/31/22 17:57 [place] % (Auto) 6.3 % 07/31/22 17:57 Eos % (Auto) 3.2 % 07/31/22 17:57 Baso % (Auto) 0.2 % 07/31/22 17:57 Neut # (Auto) 6.41 10^3/uL (1.8-7.7) 07/31/22 17:57 Lymph # (Auto) 0.9 10^3/uL (0.8-4.8) 07/31/22 17:57 [place] # (Auto) 0.5 10^3/uL (0.2-0.9) 07/31/22 17:57 Eos # (Auto) 0.3 10^3/uL (0.0-0.8) 07/31/22 17:57 Baso # (Auto) 0.0 10^3/uL (0.0-0.1) 07/31/22 17:57 Nucleated RBC % (auto) 0 % 07/31/22 17:57 Nucleated RBCs # 0.0 /100WBC 07/31/22 17:57 Sodium 141 mmol/L (136-145) 07/31/22 16:53 Potassium 3.7 mmol/L (3.5-5.1) 07/31/22 16:53 Chloride 103 mmol/L (98-107) 07/31/22 16:53 Carbon Dioxide 28 mmol/L (22-29) 07/31/22 16:53 Anion Gap 13.7 (5-19) 07/31/22 16:53 BUN 18 mg/dL (6-20) 07/31/22 16:53 Creatinine 0.5 mg/dL (0.5-0.9) 07/31/22 16:53 GFR Calculation 127.6 mL/min (90-130) 07/31/22 16:53 Glucose 90 mg/dL (65-115) 07/31/22 16:53 Calculated Osmolality 293 mOsm/kg (285-295) 07/31/22 16:53 Calcium 8.6 mg/dL (8.5-10.5) 07/31/22 16:53 Total Bilirubin 0.3 mg/dL (0.15-1.2) 07/31/22 16:53 AST 19 U/L (0-32) 07/31/22 16:53 ALT 15 U/L (0-33) 07/31/22 16:53 Alkaline Phosphatase 122 U/L (35-105) H 07/31/22 16:53 Total Protein 6.5 g/dL (6.6-8.7) L 07/31/22 16:53 Albumin 3.7 g/dL (3.5-5.2) 07/31/22 16:53 Globulin 2.8 g/dL (1.3-4.6) 07/31/22 16:53 Discharge Plan Discharge Patient Disposition: Home Clinical Impression: Leg edema Condition: Stable Prescriptions: No Action hydrocodone-acetaminophen 10-325 mg tablet 1 tab PO QID PRN (Reason: pain) 30 Days Qty: 120 0RF Rx Instructions: Fill on or after 03/05/21 furosemide 40 mg tablet 40 mg PO DAILY Qty: 90 6RF (DME) nebulizer and compressor Device See Rx Instructions .ROUTE .MEDSUPPLY Qty: 1 0RF Rx Instructions: As directed spironolacton-hydrochlorothiaz [Aldactazide] 25-25 mg tablet 1 tab PO DAILY Qty: 90 3RF venlafaxine [Effexor XR] 37.5 mg capsule,extended release 24hr 37.5 mg PO DAILY Qty: 30 0RF sumatriptan succinate 50 mg tablet See Rx Instructions PO .COMPLEX Qty: 10 0RF Rx Instructions: take 1 tab at onset of headache; if no relief may repeat 1 tab after at least 2 hrs; max = 4 tabs/24 hr PO omeprazole 40 mg capsule,delayed release(DR/EC) 40 mg PO DAILY Qty: 90 1RF ondansetron HCl 4 mg tablet 4 mg PO Q6H PRN (Reason: nausea and vomiting) Qty: 30 0RF albuterol sulfate 2.5 mg/0.5 mL solution for nebulization 5 mg inhalation Q6H PRN (Reason: shortness of breath or wheezing) Qty: 30 1RF (DME) walker with wheels and the bench See Rx Instructions .Route .MEDSUPPLY Qty: 1 0RF Rx Instructions: As directed cholestyramine (with sugar) [Questran] 4 gram powder in packet 4 g PO DAILY Qty: 60 0RF Rx Instructions: administer w/meal; avoid other meds within 1hr before or 4-6hr after dose naproxen 500 mg tablet 500 mg PO BID Combivent Respimat 20-100 mcg/actuation mist 1 puff inhalation QID 60 Days Qty: 4 5RF Hold Instructions: Dose Change Rx Instructions: space evenly during waking hours Spiriva Respimat 2.5 mcg/actuation mist 2 puff inhalation DAILY 60 Days Qty: 4 4RF Hold Instructions: Dose Change betamethasone acet,sod phos [Celestone Soluspan] 6 mg/mL suspension 6 mg intra-articular ONCE Qty: 1 0RF bupivacaine (PF) 0.5 % (5 mg/mL) solution 5 mg intra-articular ONCE Qty: 2 0RF lidocaine (PF) 10 mg/mL (1 %) solution 10 mg intra-articular ONCE Qty: 2 0RF tizanidine 4 mg capsule 4 mg PO Q6H PRN (Reason: muscle spasticity) Qty: 30 4RF Rx Instructions: do not exceed 3 doses per 24 hrs Topamax 200 mg tablet See Rx Instructions .ROUTE .COMPLEX Rx Instructions: 200 mg in the morning and 300 mg at night Miralax 17 gram/dose Powder 4 g PO DAILY meloxicam 15 mg tablet 15 mg PO DAILY PRN (Reason: pain) Qty: 20 0RF Discharge Orders: Discharge ED (Routine); Ordered 07/31/22 Ordered By: Brent Mckeon Referrals: Murray Nagel MD [Primary Care Provider] - Discharge Diet: Cardiac Discharge Activity: Increase activity as tolerated Patient Instructions: Opioid Safety, Pain Management Activity Restrictions/Additional Instructions: You were seen today for swelling in her legs recommend you increase your Lasix to 80 mg once daily for the next 3 days. Recheck with your primary care doctor at that time. 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
[2022-07-31 16:30] VITALS: PULSE 63; RESP 18; O2SAT 97
[2022-07-31] MEDS: FUROsemide 10 mg/mL SDV 10mL 60 MG IVP (16:45)
[2022-07-31 17:24] LABS: Alanine Aminotransferase 15 U/L (0-33); Albumin Level 3.7 g/dL (3.5-5.2); Alkaline Phosphatase 122 U/L (35-105); Anion Gap 13.7 (5-19); Aspartate Amino Transferase 19 U/L (0-32); Blood Urea Nitrogen 18 mg/dL (6-20); Calcium 8.6 mg/dL (8.5-10.5); Carbon Dioxide 28 mmol/L (22-29); Chloride 103 mmol/L (98-107); Creatinine Clr Calc Pharmacy 152.4707; Globulin 2.8 g/dL (1.3-4.6); Glomerular Filtration Rate 127.6 mL/min (90-130); Glucose 90 mg/dL (65-115); Osmolality Calculated 293 mOsm/kg (285-295); Potassium 3.7 mmol/L (3.5-5.1); Sodium 141 mmol/L (136-145); Total Bilirubin 0.3 mg/dL (0.15-1.2); Total Protein 6.5 g/dL (6.6-8.7)
[2022-07-31 17:30] VITALS: PULSE 76; RESP 18; O2SAT 95
[2022-07-31 18:00] VITALS: BP 197/94; PULSE 67; RESP 18; O2SAT 95
[2022-07-31 18:02] LABS: Basophils % 0.2 %; Eosinophils # 0.3 10^3/uL (0.0-0.8); Eosinophils % 3.2 %; Hematocrit 39.3 % (37.0-47.0); Lymphocytes # 0.9 10^3/uL (0.8-4.8); Mean Corpuscular HGB Conc 30.5 g/dL (30.0-36.0); Mean Corpuscular Hemoglobin 28.6 pg (28.0-34.0); Mean Corpuscular Volume 93.8 fl (81-99); Mean Platelet Volume 10.7 fL (7.4-10.4); Monocytes # 0.5 10^3/uL (0.2-0.9); Monocytes % 6.3 %; Neutrophils # 6.41 10^3/uL (1.8-7.7); Neutrophils % 79.1 %; Nucleated Red Blood Cells % 0 %; Platelet Count 143 10^3/cmm (130-400); Red Blood Count 4.19 10^6/uL (4.1-5.3); Red Cell Distribution Width 13.7 % (12.1-15.1); White Blood Count 8.1 10^3/uL (4.0-10.0)
[2022-07-31] MEDS: nitroglycerin 0.4 mg sublingual Tablet SUBLINGUAL (18:38)
[2022-07-31] MEDS: hyDRALAzine 20 mg/mL INJ 1 mL 10 MG IVP (18:38)
--- NOTE | 2022-07-31 18:48 | PC.NURSE ---
PT STATES SHE HAS HAD INTERMITTENT CHEST PAIN FOR THE LAST COUPLE MONTHS. ED PHYSICIAN NOTIFIED.
[2022-07-31 19:04] VITALS: BP 177/85; PULSE 77; RESP 18; O2SAT 95
== END 2022-07-31 19:04 | disposition home or self-care (01) ==
PROVIDERS: Emergency Provider Family Medicine; PCP Family Medicine
DX: R60.0 Localized edema (principal); I25.10 Atherosclerotic heart disease of native coronary artery without angina pectoris; J44.9 Chronic obstructive pulmonary disease, unspecified; Z86.73 Personal history of transient ischemic attack (TIA), and cerebral infarction without residual deficits; I25.2 Old myocardial infarction
CPT/HCPCS: 36415; 71045; 80048; 80053; 85025; 96374; 96375; 99284; J0360; J1940

== ENCOUNTER → 2022-10-05 11:10 | Outpatient (BNVA) | payer MEDICAID, SELFPAY | PROVIDERS: PCP Family Medicine; Visit Provider Student in an Organized Health Care Education/Training Program | DX: Z01.818 Encounter for other preprocedural examination (principal); S83.241A Other tear of medial meniscus, current injury, right knee, initial encounter; S83.281A Other tear of lateral meniscus, current injury, right knee, initial encounter; X58.XXXA Exposure to other specified factors, initial encounter | CPT/HCPCS: 36415; 80053; 81001; 85025; 87086; 99214 ==

== ENCOUNTER → 2022-11-04 09:57 | Outpatient (BNVA) | payer MEDICAID, SELFPAY | PROVIDERS: PCP Family Medicine; Visit Provider Family Medicine | DX: Z01.818 Encounter for other preprocedural examination (principal); J44.9 Chronic obstructive pulmonary disease, unspecified; J06.9 Acute upper respiratory infection, unspecified; I10 Essential (primary) hypertension | CPT/HCPCS: 80053; 81000; 85025 ==

== ENCOUNTER 2022-11-10 05:37 | Day surgery (SDC) | payer MEDICAID, SELFPAY ==
[2022-11-09 13:02] VITALS: BMI 38.8
[2022-11-10] VITALS (11 sets, daily range): BP systolic 126–172; BP diastolic 65–103; PULSE 60–68; RESP 10–22; TEMP 36.3–36.6; O2SAT 93–100; BMI 38.8
[2022-11-10] MEDS: acetaminophen 1,000 MG/100 ML PIGGYBACK 400 MG IV (07:18)
[2022-11-10] MEDS: ketorolac 30 mg/mL INJ IVP (07:19)
[2022-11-10] MEDS: sodium chloride 0.9% 1,000 ML 30 ML IV (07:46)
[2022-11-10] MEDS: HYDROcodone-acetaminophen 10-325 mg Tablet 1 TAB PO ×2 (07:51→10:41)
--- NOTE | 2022-11-10 07:55 | W.PM.OPSUD ---
Surgery/Procedure H&P Update DATE OF PROCEDURE: November 10, 2022 DATE H&P PERFORMED: 10/05/22 H&P UPDATE INFORMATION: I have examined patient prior to procedure and No changes to prior documentation CHANGES TO PREVIOUS DOCUMENTATION: None PREOP DIAGNOSIS: Right knee medial meniscus tear, lateral meniscus tear PRIMARY INDICATION FOR PROCEDURE: Right knee medial meniscus tear and lateral meniscus tear PLANNED PROCEDURE: Operation Date: 11/10/22 08:10 Proposed Procedures p Knee Arthroscopy Knee Arthroscopy w/ Medial and Lateral Menisectomy(Right) - Haim Chiang DO
--- NOTE | 2022-11-10 07:56 | W.PM.OPSFHP ---
Same Day Surgery H&P Indication for Procedure/HPI DATE OF PROCEDURE: November 10, 2022 CHIEF COMPLAINT/INDICATIONFOR SURGICAL PROCEDURE: Right knee medial meniscus tear and lateral meniscus tear and pain PREOP DIAGNOSIS: Right knee medial meniscus tear, lateral meniscus tear PLANNED PROCEDURE: Operation Date: 11/10/22 08:10 Proposed Procedures p Knee Arthroscopy Knee Arthroscopy w/ Medial and Lateral Menisectomy(Right) - Haim Chiang DO Medications/Allergies* Home Medications Medication Instructions Recorded Confirmed Type naproxen 500 mg tablet 500 mg PO BID 12/16/21 11/10/22 History Allergies/Adverse Reactions Allergy/AdvReac Type Severity Reaction Status Date / Time No Known Allergies Allergy Verified 11/09/22 13:10 Pertinent History/Comorbid Conditions* Medical History (Updated 10/09/22 @ 23:09 by Haim Chiang DO) CAD (coronary artery disease) Chronic left shoulder pain Chronic low back pain with sciatica Chronic neck pain COPD (chronic obstructive pulmonary disease) Encounter for long-term (current) use of NSAIDs Encounter for long-term opiate analgesic use Fibromyalgia GERD (gastroesophageal reflux disease) History of CVA (cerebrovascular accident) Hx of myocardial infarction Mitral valve prolapse Pain management contract signed PTSD (post-traumatic stress disorder) Schizophrenia Seizures Sleep apnea Sleep apnea Surgical History (Updated 05/27/22 @ 12:16 by Murray Nagel MD) History of cholecystectomy History of hysterectomy History of oral surgery Hx of shoulder surgery Family History (Updated 06/22/21 @ 14:32 by Debbie Bustos RN) Adopted Social History Smoking and tobacco status: never smoked Second hand smoke exposure: Yes Smoking risk assessment/counseling performed?: Yes Tobacco counseling given: provider counseling and counseling >3 minutes Alcohol intake: never Substance/Drug Use: never Lives independently: Yes Marital status: Current occupational status: disabled Pertinent Exam Findings alert, oriented x 3, operative site marked and procedure specific exam findings Examination of the right knee: Examination of the right knee demonstrates mild joint effusion Patient has pain with end ranges of motion with decreased range of motion secondary to pain Stable varus valgus stress Tenderness palpation of the medial joint line Tenderness to palpation lateral joint line Pain with Risa's on examination but no palpable click Negative Denzel's No significant varus valgus malalignment Recommendations Surgery/Procedure today Other Plans: Patient understands the ins and outs procedure the risk benefits complication alternatives with surgery understanding risk of surgery she elects to proceed with a right knee diagnostic and surgical arthroscopy with partial medial meniscectomy and partial lateral meniscectomy all questions been answered. Elects proceed with surgical intervention. Coding Level of Care Code Acute Code for Chg Fwd Diagnoses
--- NOTE | 2022-11-10 08:17 | P.ANESASSM_ITS ---
Pre-Anesthetic Assessment Height/Weight: Height 1.7 m Weight 112.491 kg Temp Pulse Resp BP Pulse Ox O2 Del Method 97.5 F L 68 18 159/103 100 Room Air 11/10/22 07:05 11/10/22 07:05 11/10/22 07:05 11/10/22 07:05 11/10/22 07:05 11/10/22 07:05 Preop Diagnosis: Right knee medial meniscus tear, lateral meniscus tear Operation Date: 11/10/22 08:10 Proposed Procedures p Knee Arthroscopy Knee Arthroscopy w/ Medial and Lateral Menisectomy(Right) - Haim Chiang, Familial anesthetic complications: None Was Beta Meggan taken within 24 hours: N/A Was Clonidine taken within 24 hours: N/A Last intake: Intake Last Liquid Date 11/10/22 Last Liquid Time 00:00 Last Solid Date 11/09/22 Last Solid Time 19:30 Social No alcohol and No tobacco Exam alert, oriented x 3, clear to auscultation bilaterally and regular rate & rhythm Airway Mallampati: Class III Dentition: other (missing) Pulmonary Chronic Obstructive Pulmonary Disease and Sleep Apnea CV/HEM Coronary Artery Disease and Myocardial Infarction (20 years ago) 2015 cath clear GI Gastroesophageal Reflux Disease Metabolic Morbid Obesity [facility] [place] Fibromyalgia Neuropsych Cerebrovascular Accident and Seizure Anesthetic Plan ASA status: 3 Anesthesia: General Risk of > 500 ml blood loss (7ml/kg in children): No Medications/Allergies Home Medications Medication Instructions Recorded Confirmed Last Taken Type nebulizer and compressor #1 ea 12/12/19 10/08/22 Unknown Rx hydrocodone 10 mg-acetaminophen 1 tab PO QID PRN pain 30 days #120 02/17/21 11/09/22 11/09/22 Rx 325 mg tablet tabs furosemide 40 mg tablet 40 mg PO DAILY #90 tabs 03/16/21 11/09/22 11/09/22 Rx spironolactone 25 1 tab PO DAILY #90 tabs 07/08/21 11/09/22 11/09/22 Rx mg-hydrochlorothiazide 25 mg tablet (Aldactazide) naproxen 500 mg tablet 500 mg PO BID 12/16/21 11/10/22 11/04/22 History omeprazole 40 mg capsule,delayed 40 mg PO DAILY #90 caps 05/27/22 11/09/22 11/09/22 Rx release walker with wheels and the bench #1 ea 06/09/22 10/08/22 Unknown Rx ipratropium 20 mcg-albuterol 100 1 puff inhalation QID 60 days #4 07/06/22 11/09/22 11/09/22 Rx mcg/actuation mist for inhalation grams (Combivent Respimat) tiotropium bromide 2.5 2 puff inhalation DAILY 60 days #4 07/06/22 11/09/22 11/09/22 Rx mcg/actuation mist for inhalation grams (Spiriva Respimat) albuterol sulfate 90 mcg/actuation 1 - 2 puff inhalation Q6H PRN 10/05/22 11/09/22 1 Week Ago Rx aerosol inhaler (Ventolin HFA) shortness of breath or wheezing ~11/02/22 #8.5 grams tizanidine 4 mg capsule 4 mg PO BID PRN muscle spasticity 10/08/22 11/09/22 11/09/22 Rx #60 caps topiramate 200 mg tablet See Rx Instructions .Route 10/12/22 11/09/22 11/09/22 Rx .COMPLEX #150 tabs albuterol sulfate 2.5 mg/0.5 mL 5 mg inhalation Q6H PRN shortness 11/08/22 11/09/22 1 Week Ago Rx solution for nebulization of breath or wheezing #30 ea ~11/02/22 aspirin 81 mg tablet,delayed 81 mg PO DAILY 2 weeks #14 tabs 11/10/22 Unknown Rx release hydrocodone 5 mg-acetaminophen 325 1 tab PO Q6H PRN pain 5 days #20 11/10/22 Unknown Rx mg tablet tabs ondansetron 4 mg disintegrating 4 mg PO Q8H PRN nausea and 11/10/22 Unknown Rx tablet vomiting 3 days #9 tabs Allergies Allergy/AdvReac Type Severity Reaction Status Date / Time No Known Allergies Allergy Verified 11/09/22 13:10 Current Medications Generic Name Dose Route Start Last Admin Trade Name Freq PRN Reason Stop Dose Admin Sodium Chloride 1,000 mls @ 30 mls/hr 11/10/22 06:45 11/10/22 07:46 Sodium Chloride 0.9% IV 11/11/22 06:44 30 mls/hr .Q24H ARNOLD Administration PFSH Anesthesia Medical History CAD (coronary artery disease) Chronic left shoulder pain Chronic low back pain with sciatica Chronic neck pain COPD (chronic obstructive pulmonary disease) Encounter for long-term (current) use of NSAIDs Encounter for long-term opiate analgesic use Fibromyalgia GERD (gastroesophageal reflux disease) History of CVA (cerebrovascular accident) Hx of myocardial infarction Mitral valve prolapse Pain management contract signed PTSD (post-traumatic stress disorder) Schizophrenia Seizures Sleep apnea Sleep apnea Surgical History History of cholecystectomy History of hysterectomy History of oral surgery Hx of shoulder surgery Family History Father No problems noted. Mother No problems noted. Other Adopted Social History Smoking and tobacco status: never smoked Second hand smoke exposure: Yes Smoking risk assessment/counseling performed?: Yes Tobacco counseling given: provider counseling and counseling >3 minutes Alcohol intake: never Substance/Drug Use: never Lives independently: Yes Marital status: Current occupational status: disabled Data Anesthesia Cardiac Studies: Echocardiogram 10/16/21
[2022-11-10] MEDS: ceFAZolin 2,000 MG in sodium chloride 0.9% (plus) 50 ML 100 MG IV (08:37)
[2022-11-10] MEDS: lidocaine-epi 2% 20 mL INJ 40 ML INJECTION (09:25)
--- NOTE | 2022-11-10 09:43 | P.BOP_ITS ---
Date of procedure: [November 10, 2022] Surgeon name: [Dr. Mariia PUGH] Multiple Drum Sander(s) name(s): [Rafael Chiang Physician Multiple Drum Sander] Procedure(s) performed: [Right Knee Diagnostic and arthroscopy w/ partial Medial and Lateral Menisectomy, medial and lateral patellar femoral chondroplasty, extensive synovectomy] Description of findings: [Right Knee Medial and Lateral meniscus tear, medial and lateral Patellar femoral chondroplasia, and extensive synovitis] Estimated blood loss: [5 ml] Specimen(s) removed: [n/a] Post-operative diagnosis: [Right Knee Medial and Lateral meniscus tear, medial and lateral Patellar femoral chondroplasia, and extensive synovitis]
--- NOTE | 2022-11-10 09:45 | PM.OP ---
Operative Report Date of procedure: November 10, 2022 Surgeon: Haim Chiang DO Procedure: Preoperative diagnosis: Right knee medial and lateral meniscus tear Right knee chondromalacia Post-op diagnosis: Right?knee?medial and lateral meniscus tear Right?knee?extensive synovitis Right?knee?Medial, lateral, patellofemoral chondromalacia Procedure done: Right?knee?diagnostic and surgical arthroscopy partial medial and lateral meniscectomy Right?knee?diagnostic and surgical arthroscopy with extensive synovectomy of the medial lateral and patellofemoral compartments Right?knee?diagnostic and surgical arthroscopy with tri- compartment chondroplasty Surgeon: Haim Chiang DO Estimated blood loss: 1mL Tourniquet: No tourniquet was used IV fluids: See anesthesia record Complications: None Findings: See operative report narrative Condition: stable Disposition: same day Brief History: Patient is a 57year-old female with right?knee?pain.? Patient has failed conservative treatment who has been worked up for right??knee?pain in the outpatient setting. MRI findings consistent with tear of the medial and lateral meniscus. talked in the office about treatment options patient would like to proceed with a right?knee?diagnostic and surgical arthroscopy with partial medial and lateral meniscectomy .? Patient understand the ins and outs of the procedure the risk benefits complication alternatives to treatment options.? Understanding risk of surgery they agree to proceed with surgical intervention.? Patient understand this may not provide patient with complete symptomatic relief of? pain as patient does have some underlying arthritis.? Understanding this and patient agree to proceed with surgical intervention all questions answered. Procedure: Patient seen and evaluated in the preoperative holding area.? Consent was reviewed and signed with patient.? Correct extremity was then marked.? Patient seen evaluated Anesthesia Department once cleared for surgery patient was taken back to the operative suite.? Patient was transported onto the OR table in supine position.? All bony prominences well-padded patient was appropriate secured to the bed.? Once appropriately anesthetized a nonsterile tourniquet was applied to the right thigh.? The right lower extremity was then prepped and draped in standard orthopedic fashion.? Final timeout performed.? Patient received appropriate preoperative antibiotics. Patient received local anesthetic of lidocaine with epinephrine into the joint as well as around the portal sites.? No tourniquet was inflated A standard 2 portal vertical incision diagnostic and surgical arthroscopy of the right?knee?was performed in standard fashion.? Small stab incision made in the inferolateral portal introduced trocar and arthroscope into the suprapatellar pouch.? Suprapatellar pouch was subsequently visualized and found to have significant synovitis but no loose bodies.? Patient had noticeable significant inflamed infrapatellar fat pad and thickening hypertrophic within the patellofemoral compartment.? ?The medial gutter was free of loose bodies I then introduced the arthroscope into the medial compartment.? Within the medial compartment I then established my inferior medial working portal utilizing spinal needle outside in technique.? Once established I then visualized our articular cartilage of the medial compartment with a valgus stress.? Patient was found to have grade 3 chondromalacia throughout the medial compartment.? Next I inspected the meniscus.? With an arthroscopic probe was utilized to visual? all aspects of the meniscus.? Meniscal root was found to be intact.? Meniscus was found to be torn at the body to posterior horn junction.? I then subsequently introduced a basket forceps as well as arthroscopic shaver to perform a partial medial meniscectomy to stable meniscal tissue and then utilized a thermal wand to anneal the edges.? Next, I then performed a synovectomy of the medial compartment.? Given patient's chondromalacia there was areas of unstable articular cartilage and I subsequently performed a chondroplasty with arthroscopic shaver and thermal wand.? This completed medial compartment work. Next a introduced the arthroscope to the intercondylar notch.? PCL and ACL were intact. patient had significant thickening of the infrapatellar fat pad spanning into the medial and lateral compartments.? I then performed an extensive synovectomy with the arthroscopic shaver of the patellofemoral medial and lateral compartments as well as the intercondylar notch. Next I introduced the arthroscope into the lateral compartment the lateral compartment was found to have grade 2-3 chondromalacia.? Lateral meniscus was found to have a small tear at the anterior horn of the lateral meniscus.? The root was intact.? As result I utilized an arthroscopic shaver to perform a partial lateral meniscectomy to stable meniscal tissue and utilized thermal wand to anneal the edges I also utilized arthroscopic shaver and thermal wand to perform a lateral compartment chondroplasty to stable articular tissue. This completed my work of the lateral compartment and then performed a synovectomy of the lateral compartment.? Next of the arthroscope was placed into the lateral gutter and this was free of loose bodies.? Finally I reintroduced the arthroscope into the patellofemoral compartment.? The patellofemoral was found to have grade 3-4 chondromalacia of the patellofemoral compartment.? At this point I utilized arthroscopic shaver as well as thermal wand to perform extensive synovectomy of the patellofemoral compartment. I then subsequently utilized a thermal wand to perform a patellofemoral compartment chondroplasty as well as an arthroscopic shaver to stable articular tissue. This completed my work of the patellofemoral space.? I then switch my portal sites to the medial working portal.? Completed the rest of my synovectomy and the rest of my examination arthroscopy was normal. All fluid was suctioned from the joint.? ?All instruments were withdrawn.? Portal sites were closed with interrupted nylon suture.? portal sites were then covered with with Xeroform 4 x 4's ABD Curlex and Darshan wrap.? Patient was then subsequently awakened from anesthesia and taken to PACU in stable condition. Disposition: Patient taken to PACU in stable condition recovering well.? Will receive appropriate discharge structure as well as pain medication postoperatively as well as? DVT prophylaxis.we will have patient follow-up with us in the office in 2 weeks.? We will weightbearing as tolerated to the right lower extremity.? Patient understands and agrees with current plan.? All questions answered.
--- NOTE | 2022-11-10 09:48 | PM.PACU ---
PACU note Narrative: Patient is a 57-year-old female just underwent a right knee diagnostic arthroscopy procedure. Pt transferred to PACU in stable condition. Dressing is dry. pt is awake and alert. pt can wiggle toes and plantarflex and dorsiflex foot. pt able to perform straight leg raise, Femoral nerve intact. Distal pulses are palpable toes are warm and well-perfused. Cap refill is normal and under 2 seconds. Sensation to foot is intact. Pain is controlled. Exam: awake Disposition: discharged
--- NOTE | 2022-11-10 11:25 | ANE.PACU2 ---
Inpatient post-anesthesia follow up: Airway intact: Yes Vital signs: Temperature 98 F Pulse Rate 66 Respiratory Rate 17 Blood Pressure 170/88 Pulse Oximetry 96 Oxygen Delivery Me thod Room Air Oxygen Flow Rate 6 Fraction of Inspir ed Oxygen Hydration adequate: Yes Nausea and vomiting: No Pain level: 1 Mental status: Baseline
--- NOTE | 2022-11-10 11:37 | SUR.PHASEII ---
1040 Ready transport called with d/c time around 1100 1100 pt d/c papers done and awaiting ready transport 1125 ready transport here for ride home and assisted to van without any problems
== END 2022-11-10 11:25 | disposition home or self-care (01) ==
PROVIDERS: PCP Family Medicine; Visit Provider Student in an Organized Health Care Education/Training Program
PROC: (CPT 29870; principal; 2022-11-10 08:10)
DX: S83.281A Other tear of lateral meniscus, current injury, right knee, initial encounter (principal); S83.241A Other tear of medial meniscus, current injury, right knee, initial encounter; X58.XXXA Exposure to other specified factors, initial encounter; M22.41 Chondromalacia patellae, right knee; J44.9 Chronic obstructive pulmonary disease, unspecified; G47.30 Sleep apnea, unspecified; I25.10 Atherosclerotic heart disease of native coronary artery without angina pectoris; I25.2 Old myocardial infarction; K21.9 Gastro-esophageal reflux disease without esophagitis; E66.01 Morbid (severe) obesity due to excess calories; M79.7 Fibromyalgia
CPT/HCPCS: 29876; 29880; J0131; J0690; J1100; J1885; J2250; J2405; J2704; J3010; J7030

== ENCOUNTER → 2022-11-15 09:55 | Outpatient (BNVA) | payer MEDICAID, SELFPAY | PROVIDERS: PCP Family Medicine; Visit Provider Psychiatry & Neurology Neurology | DX: G40.919 Epilepsy, unspecified, intractable, without status epilepticus (principal) | CPT/HCPCS: 99203 ==

== ENCOUNTER 2022-11-22 16:00 | Outpatient (CLI) | payer MEDICAID, SELFPAY ==
[2022-11-22 16:26] LABS: Basophils # 0.1 10^3/uL (0.0-0.1); Basophils % 0.5 %; Eosinophils # 0.2 10^3/uL (0.0-0.8); Eosinophils % 1.6 %; Lymphocytes # 1.5 10^3/uL (0.8-4.8); Lymphocytes % 13.4 %; Mean Corpuscular HGB Conc 31.5 g/dL (30-55); Mean Corpuscular Hemoglobin 27.3 pg (27-33); Mean Corpuscular Volume 86.9 fl (85-98); Mean Platelet Volume 9.9 fL (7.4-10.4); Monocytes # 0.8 10^3/uL (0.2-0.9); Neutrophils % 76.9 %; Nucleated Red Blood Cells % 0 %; Platelet Count 285 10^3/cmm (157-399); Red Blood Count 4.72 10^6/uL (3.85-5.65); Red Cell Distribution Width 13.7 % (12.1-15.1); White Blood Count 10.79 10^3/uL (3.29-11.43)
[2022-11-22 16:46] LABS: Alanine Aminotransferase 13 U/L (0-33); Albumin Level 4.5 g/dL (3.5-5.2); Alkaline Phosphatase 133 U/L (35-105); Aspartate Amino Transferase 15 U/L (0-32); Globulin 3.6 g/dL (1.3-4.6); Total Bilirubin 0.3 mg/dL (0.15-1.2); Total Protein 8.1 g/dL (6.6-8.7)
== END 2022-11-22 16:01 | disposition home or self-care (01) ==
LOC: RAD 16:02
PROVIDERS: PCP Family Medicine; Visit Provider Psychiatry & Neurology Neurology
DX: G40.909 Epilepsy, unspecified, not intractable, without status epilepticus (principal); Z98.890 Other specified postprocedural states
CPT/HCPCS: 36415; 80076; 80201; 85025; 99024

== ENCOUNTER → 2023-01-04 10:04 | Outpatient (BNVA) | payer MEDICAID, SELFPAY | PROVIDERS: PCP Family Medicine; Visit Provider Student in an Organized Health Care Education/Training Program | DX: M17.11 Unilateral primary osteoarthritis, right knee (principal); Z98.890 Other specified postprocedural states | CPT/HCPCS: 99024; 99213 ==

== ENCOUNTER 2023-01-28 07:51 | Outpatient (CLI) | payer MEDICAID, SELFPAY ==
--- NOTE | 2023-01-28 | USCV_ITS ---
Suzie Chun (Snehal) Age: 57 Gender: F : 1965 Exam Date: 01/28/2023 08:26 Ordering Phys: Gurmeet Epstein MD Technologist: Louis Guillen Exam Location: [facility] [place] Indication: edema BP: 128 / 90 HR: 73 Rhythm: Sinus Technical Quality: Adequate MEASUREMENTS (Male / Female) Normal Values 2D ECHO LVOT Diameter 2.1 cm LV Ejection Fraction MOD 2C 66.9 % LV Ejection Fraction 2C AL 68.0 % LA Diameter 3.8 cm LA Width 3.4 cm LA Height 4.6 cm RA Width 2.8 cm RA Height 4.6 cm Aorta at Sinotubular Diameter 2.6 cm IVC Diameter 1.7 cm M-MODE Aortic Annulus Diameter 3.0 cm LA Ao Ratio MM 1.5 MV E Point Septal Separation 0.6 cm DOPPLER AV Peak Velocity 139.0 cm/s LVOT Peak Velocity 131.0 cm/s AV Area Cont Eq vti 3.6 cm squared AV Area Cont Eq pk 3.2 cm squared MV Peak Velocity 97.0 cm/s MV Area PHT 3.1 cm squared Mitral E to A Ratio 0.6 MV E' Velocity 34.0 cm/s Mitral E to MV E' Ratio 7.0 Mitral E to LV E' Lateral Ratio 5.5 Mitral E to LV E' Septal Ratio 9.5 Right Atrial Pressure 3.0 mmHg PV Peak Velocity 113.7 cm/s RV Acceleration Time 0.1 s RV Ejection Time 0.3 s RV AcT/ET 0.6 FINDINGS Left Ventricle Normal left ventricular size and systolic function, EF 65 %. Grade I/IV diastolic dysfunction (abnormal relaxation filling pattern), normal to mildly elevated filling pressures. Mild left ventricular hypertrophy. Right Ventricle The right ventricle is normal in size and function. Right Atrium The right atrium is normal in size. Left Atrium The left atrium is normal in size. Mitral Valve No gross abnormalities noted Aortic Valve No gross abnormalities noted Tricuspid Valve Trace tricuspid valve regurgitation. Pulmonic Valve No gross abnormalities noted Pericardium Normal pericardium without effusion. Aorta Normal ascending aorta dimension. IVC Normal inferior vena cava. CONCLUSIONS Normal left ventricular size and systolic function, EF 65 %. Grade I/IV diastolic dysfunction (abnormal relaxation filling pattern), normal to mildly elevated filling pressures. Mild left ventricular hypertrophy. There is no pericardial effusion. There are no intracardiac masses. Compared to the study from 10/16/2021, there may not be a significant change. Dr Blu Eric MD [facility] (Electronically Signed) Final Date: 30 January 2023 23:16 S
== END 2023-01-28 07:52 | disposition home or self-care (01) ==
LOC: RAD 07:52
PROVIDERS: PCP Family Medicine; Visit Provider Internal Medicine
DX: R60.0 Localized edema (principal); I51.7 Cardiomegaly
CPT/HCPCS: 93306

== ENCOUNTER 2023-01-28 08:53 | Outpatient (RCR) | payer SELFPAY | END 2023-02-06 23:59 | disposition home or self-care (01) | LOC: SPT 08:53 | PROVIDERS: PCP Family Medicine; Visit Provider Student in an Organized Health Care Education/Training Program | DX: Z98.890 Other specified postprocedural states (principal) | CPT/HCPCS: 97110; 97161 ==

== ENCOUNTER 2023-02-10 10:48 | Outpatient (RCR) | payer MEDICAID, SELFPAY | END 2023-03-09 23:59 | disposition home or self-care (01) | LOC: SPT 10:48 | PROVIDERS: PCP Family Medicine; Visit Provider Student in an Organized Health Care Education/Training Program | DX: Z98.890 Other specified postprocedural states (principal) | CPT/HCPCS: 97110 ==

== ENCOUNTER → 2023-02-15 09:36 | Outpatient (BNVA) | payer MEDICAID, SELFPAY | PROVIDERS: PCP Family Medicine; Visit Provider Physician Assistant | DX: M17.11 Unilateral primary osteoarthritis, right knee; Z98.890 Other specified postprocedural states | CPT/HCPCS: 20610; 99213; J3301 ==

== ENCOUNTER → 2023-03-25 08:59 | Outpatient (BNVA) | payer MEDICAID, SELFPAY | PROVIDERS: PCP Family Medicine; Visit Provider Psychiatry & Neurology Neurology | DX: G40.919 Epilepsy, unspecified, intractable, without status epilepticus (principal) | CPT/HCPCS: 95813 ==

== ENCOUNTER 2023-04-08 06:00 | Outpatient (RCR) | payer MEDICAID, SELFPAY | END 2023-05-08 23:59 | disposition home or self-care (01) | LOC: SPT 06:00 | PROVIDERS: PCP Family Medicine; Visit Provider Student in an Organized Health Care Education/Training Program | DX: Z98.890 Other specified postprocedural states (principal) | CPT/HCPCS: 97110 ==

== ENCOUNTER → 2023-04-21 11:43 | Outpatient (BNVA) | payer MEDICAID, SELFPAY | PROVIDERS: PCP Family Medicine; Visit Provider Psychiatry & Neurology Neurology | DX: G40.919 Epilepsy, unspecified, intractable, without status epilepticus (principal) | CPT/HCPCS: 99212 ==

== ENCOUNTER 2023-04-27 07:01 | Outpatient (CLI) | payer MEDICAID, SELFPAY ==
[2023-04-30 12:30] LABS: Lamotrigine (Lamictal) Level 0.8 mcg/mL (2.5-15.0)
== END 2023-04-27 07:02 | disposition home or self-care (01) ==
LOC: LAB 07:02
PROVIDERS: PCP Family Medicine; Visit Provider Psychiatry & Neurology Neurology
DX: R56.9 Unspecified convulsions (principal)
CPT/HCPCS: 36415; 80175; 80201

== ENCOUNTER 2023-05-27 08:36 | Outpatient (CLI) | payer MEDICAID, SELFPAY ==
--- NOTE | 2023-05-27 08:45 | MR_ITS ---
WS: [id number] MRI BRAIN WITHOUT CONTRAST HISTORY: G40.919 - Epilepsy, unspecified, intractable, without sta... COMPARISON: None available. TECHNIQUE: Diffusion imaging, multiplanar T1, T2 and FLAIR imaging obtained. Unable to achieve IV acc ess for postcontrast imaging. There is significant motion artifact on all sequences. No evidence for acute infarct or hemorrhage. White-white matter differentiation is normal. Small infarcts would be easily obscured with this amount of motion. There is no large territory infar ct. Mild small vessel ischemic disease. No hemorrhage. Hippocampal formations are normal. Ventricles and extra-axial spaces are normal. No inferior displacement of cerebellar tonsils. The sella turcica and pituitary gland are unremarkabl e. Dural venous sinuses and port lions of Shah demonstrate no abnormality on this unenhanced studies. Paranasal sinuses: Clear. Mastoid air cells: Normal. Calvarium and scalp: Intact. IMPRESSION: 1. Study is compromised by motion artifact on all sequences. 2. No significant atrophy and no large territory infarct. 3. Satisfactory hippocampal formations. 4. No hemorrhage or hydrocephalus.
== END 2023-05-27 08:37 | disposition home or self-care (01) ==
LOC: RAD 08:37
PROVIDERS: PCP Family Medicine; Visit Provider Psychiatry & Neurology Neurology
DX: G40.909 Epilepsy, unspecified, not intractable, without status epilepticus (principal)
CPT/HCPCS: 70551

== ENCOUNTER → 2023-06-09 09:11 | Outpatient (BNVA) | payer MEDICAID, SELFPAY | PROVIDERS: PCP Family Medicine; Visit Provider Psychiatry & Neurology Neurology | DX: G40.919 Epilepsy, unspecified, intractable, without status epilepticus (principal) | CPT/HCPCS: 95813; 95819 ==

== ENCOUNTER → 2023-10-18 09:13 | Outpatient (BNVA) | payer MEDICAID, SELFPAY | PROVIDERS: PCP Family Medicine; Visit Provider Student in an Organized Health Care Education/Training Program | DX: M17.11 Unilateral primary osteoarthritis, right knee (principal); M25.562 Pain in left knee; M25.561 Pain in right knee | CPT/HCPCS: 73560; 73565; 99213 ==

== ENCOUNTER → 2023-12-20 11:29 | Outpatient (BNVA) | payer MEDICAID, SELFPAY | PROVIDERS: PCP Family Medicine; Visit Provider Family Medicine | DX: R30.0 Dysuria (principal); I25.10 Atherosclerotic heart disease of native coronary artery without angina pectoris | CPT/HCPCS: 80053; 80061; 81000; 82728; 83550; 84439; 84443; 85025 ==

== ENCOUNTER 2024-01-08 22:57 | Emergency (ER) | payer MEDICAID, SELFPAY ==
[2024-01-08 22:58] VITALS: BP 144/79; PULSE 86; RESP 19; TEMP 36.4; O2SAT 98
--- NOTE | 2024-01-08 23:11 | ED_ITS ---
Documented by User: ALESSANDRO Hollins 01/08/24 23:14 HPI - Wound/Laceration General: Chief Complaint: Wound/Laceration Stated Complaint: Lac left thumb Time Seen by Provider: 01/08/24 22:59 Source: patient Mode of arrival: ambulatory Limitations: no limitations History of Present Illness: Patient is a 58-year-old female present to the emergency department for superf icial laceration to tip of left thumb. She cut it with a knife, stating tetanus is not up-to-date. She was sprayed with peroxide initially, wrapped it with toilet paper and states that this stopped the bleeding. No active bleeding at this time, there is injury to the nailbed to the distal tip. Reports a history of neuropathy, no other pertinent past medical history. Not on any blood thinners. Onset (ago): minute(s) Extremity Location: Left: hand (Thumb) Place: home Patient tetanus UTD: No Context: accidental Associated symptoms: Denies chills, fever(s), nausea or vomiting Related Data Home Medications Medication Instructions Recorded Confirmed naproxen 500 mg tablet 500 mg PO BID 12/16/21 12/20/23 meclizine 12.5 mg tablet 12.5 mg PO TID PRN 01/04/23 12/20/23 Previous Rx's Medication Instructions Recorded nebulizer and compressor #1 ea 12/12/19 hydrocodone 10 mg-acetaminophen 1 tab PO QID PRN pain 30 days #120 02/17/21 325 mg tablet tabs furosemide 40 mg tablet 40 mg PO DAILY #90 tabs 03/16/21 spironolactone 25 1 tab PO DAILY #90 tabs 07/08/21 mg-hydrochlorothiazide 25 mg tablet (Aldactazide) walker with wheels and the bench #1 ea 06/09/22 albuterol sulfate 90 mcg/actuation 1 - 2 puff inhalation Q6H PRN 10/05/22 aerosol inhaler (Ventolin HFA) shortness of breath or wheezing #8.5 grams tizanidine 4 mg capsule 4 mg PO BID PRN muscle spasticity 10/08/22 #60 caps albuterol sulfate 2.5 mg/0.5 mL 5 mg inhalation Q6H PRN shortness 11/08/22 solution for nebulization of breath or wheezing #30 ea ondansetron 4 mg disintegrating See Rx Instructions .Route 12/13/22 tablet .COMPLEX #9 tabs lamotrigine 200 mg tablet 200 mg PO DAILY #30 tabs 05/11/23 power chair #1 ea 07/21/23 ipratropium 20 mcg-albuterol 100 See Rx Instructions .Route 08/03/23 mcg/actuation mist for inhalation .COMPLEX #4 grams (Combivent Respimat) lamotrigine 50 mg tablet,extended 200 mg (4 x 50 mg) PO DAILY #120 09/05/23 release 24 hr (Lamictal XR) tabs tiotropium bromide 2.5 See Rx Instructions .Route 09/05/23 mcg/actuation mist for inhalation .COMPLEX #4 grams (Spiriva Respimat) omeprazole 40 mg capsule,delayed 40 mg PO DAILY #90 caps 12/06/23 release topiramate 200 mg tablet See Rx Instructions .Route 12/06/23 .COMPLEX #150 tabs sumatriptan succinate 25 mg tablet See Rx Instructions PO .COMPLEX #9 12/20/23 tabs cephalexin 500 mg capsule 500 mg PO BID 7 days #14 caps 01/08/24 Allergies Allergy/AdvReac Type Severity Reaction Status Date / Time No Known Allergies Allergy Verified 12/20/23 10:52 Review of Systems General: Reports: 10 or more systems reviewed and unremarkable except in HPI and below Const: Denies: fever(s) or chills Card: Denies: chest pain Resp: Denies: dyspnea GI: Denies: abdominal pain, nausea, vomiting or diarrhea Musc: Denies: extremity pain or joint pain Skin/Breast: Reports: new lesions (Laceration of the left thumb); Denies: rash, skin pain or skin tenderness Neuro: Denies: headache(s) PFS ED PFSH: Medical History Encounter for long-term (current) use of NSAIDs History of CVA (cerebrovascular accident) Hx of myocardial infarction GERD (gastroesophageal reflux disease) Fibromyalgia Seizures CAD (coronary artery disease) Sleep apnea Sleep apnea PTSD (post-traumatic stress disorder) Mitral valve prolapse Schizophrenia Encounter for long-term opiate analgesic use Pain management contract signed Chronic left shoulder pain Chronic neck pain Chronic low back pain with sciatica COPD (chronic obstructive pulmonary disease) Surgical History Hx of shoulder surgery History of oral surgery History of cholecystectomy History of hysterectomy Family History Father No problems noted. Mother No problems noted. Other Adopted Social History Smoking and tobacco/nicotine status: never used tobacco/nicotine Second hand smoke exposure: Yes Alcohol intake: never Substance/Drug Use: never Lives independently: Yes Marital status: Current occupational status: disabled Physical Exam Const: COMMON NORMALS: no acute distress, average body habitus, patient oriented x3, no limitations, healthy appearing, alert and well nourished HENMT: COMMON NORMALS: normocephalic and atraumatic HEAD & SCALP: normocephalic and atraumatic Neck/C-Spine: COMMON NORMALS: full ROM, no lymphadenopathy, supple and no meningeal signs Resp: COMMON NORMALS: normal respiratory effort, No use of accessory muscles and clear to auscultation bilaterally AUSCULTATION: clear to auscultation bilaterally Cardio: COMMON NORMALS: regular rate and regular rhythm RATE: regular rate RHYTHM: regular rhythm Extremity: COMMON NORMALS: full ROM and capillary refill normal Neuro: COMMON NORMALS: patient oriented x3 SENSORIUM/ORIENTATION: Yes alert MENINGEAL SIGNS: Yes no meningeal signs Skin: COMMON NORMALS: turgor normal NARRATIVE SKIN EXAM: Superficial scrape to distal left thumb, measuring approximately 1 cm. No foreign body or contamination. There is a small 1.5 cm laceration through the nailbed of the left thumb, no active bleeding, foreign body, or contamination. GENERAL SKIN EXAM: turgor normal Course Vital Signs: Vital signs: Vital Signs Temperature 97.6 F 01/08/24 22:58 Pulse Rate 86 01/08/24 22:58 Respiratory Rate 19 H 01/08/24 22:58 Blood Pressure 144/79 01/08/24 22:58 Pulse Oximetry 98 01/08/24 22:58 Oxygen Delivery Me thod Room Air 01/08/24 22:58 MDM - Wound/Laceration Medical Decision Making Lacerations to left thumb reported, patient cut with a knife. Tetanus was updated here. This was an old knife, and we will start her on some prophylactic antibiotics. Lacerations were entirely too superficial to repair, and the matrix of the nailbed was preserved meaning that the nail will continue to grow out and this would and fall off. Instructed patient on proper wound care, and all other questions and concerns addressed. No radiology studies performed this visit Discharge Plan Discharge Patient Disposition: Home Clinical Impression: Laceration of left thumb Qualifiers: Encounter type: initial encounter Damage to nail status: with damage Foreign body presence: without foreign body Qualified Code(s): S61.112A - Laceration without foreign body of left thumb with damage to nail, initial encounter Prescriptions: New cephalexin 500 mg capsule 500 mg PO BID 7 Days Qty: 14 0RF No Action hydrocodone-acetaminophen 10-325 mg tablet 1 tab PO QID PRN (Reason: pain) 30 Days Qty: 120 0RF Rx Instructions: Fill on or after 03/05/21 furosemide 40 mg tablet 40 mg PO DAILY Qty: 90 6RF (DME) nebulizer and compressor Device See Rx Instructions .ROUTE .MEDSUPPLY Qty: 1 0RF Rx Instructions: As directed spironolacton-hydrochlorothiaz [Aldactazide] 25-25 mg tablet 1 tab PO DAILY Qty: 90 3RF (DME) walker with wheels and the bench See Rx Instructions .Route .MEDSUPPLY Qty: 1 0RF Rx Instructions: As directed naproxen 500 mg tablet 500 mg PO BID tizanidine 4 mg capsule 4 mg PO BID PRN (Reason: muscle spasticity) Qty: 60 4RF Rx Instructions: do not exceed 3 doses per 24 hrs albuterol sulfate [Ventolin HFA] 90 mcg/actuation HFA aerosol inhaler 1 - 2 puff inhalation Q6H PRN (Reason: shortness of breath or wheezing) Qty: 8.5 0RF meclizine 12.5 mg tablet 12.5 mg PO TID PRN sumatriptan succinate 25 mg tablet See Rx Instructions PO .COMPLEX Qty: 9 2RF Rx Instructions: take 1 tab at onset of headache; if no relief may repeat 1 tab after at least 2 hrs; max = 4 tabs/24 hr PO albuterol sulfate 2.5 mg/0.5 mL solution for nebulization 5 mg inhalation Q6H PRN (Reason: shortness of breath or wheezing) Qty: 30 1RF ondansetron 4 mg tablet,disintegrating See Rx Instructions .ROUTE .COMPLEX Qty: 9 0RF Dose Instruction: DISSOLVE ONE TABLET BY MOUTH EVERY 8 HOURS NEEDED FOR NAUSEA AND VOMITING FOR THREE DAYS Rx Instructions: DISSOLVE ONE TABLET BY MOUTH EVERY 8 HOURS NEEDED FOR NAUSEA AND VOMITING FOR THREE DAYS lamotrigine 200 mg tablet 200 mg PO DAILY Qty: 30 5RF Rx Instructions: take once at bedtime (DME) power chair See Rx Instructions .Route .MEDSUPPLY Qty: 1 0RF Rx Instructions: As directed 99 length of need Combivent Respimat 20-100 mcg/actuation mist See Rx Instructions .ROUTE .COMPLEX Qty: 4 5RF Hold Instructions: Dose Change Dose Instruction: INHALE 1 PUFF FOUR TIMES DAILY. SPACE EVENLY DURING WAKING HOURS Rx Instructions: INHALE 1 PUFF FOUR TIMES DAILY. SPACE EVENLY DURING WAKING HOURS lamotrigine [Lamictal XR] 50 mg tablet extended release 24hr 200 mg PO DAILY Qty: 120 3RF Spiriva Respimat 2.5 mcg/actuation mist See Rx Instructions .ROUTE .COMPLEX Qty: 4 4RF Hold Instructions: Dose Change Dose Instruction: INHALE TWO PUFFS EVERY DAY Rx Instructions: INHALE TWO PUFFS EVERY DAY omeprazole 40 mg capsule,delayed release(DR/EC) 40 mg PO DAILY Qty: 90 1RF topiramate 200 mg tablet See Rx Instructions .ROUTE .COMPLEX Qty: 150 0RF Dose Instruction: TAKE 1 TABLET BY MOUTH EVERY MORNING AND 1&1/2 EVERY EVENING Rx Instructions: TAKE 1 TABLET BY MOUTH EVERY MORNING AND 1&1/2 EVERY EVENING Discharge Orders: Discharge ED (Routine); Ordered 01/08/24 Ordered By: Juni Martinez Referrals: Gurmeet Epstein MD [Primary Care Provider] - Patient Instructions: Finger Laceration (ED) Activity Restrictions/Additional Instructions: Take antibiotics as prescribed. Keep wound clean and dry. Your nail will continue to grow out and injured part will fall off. Monitor for any signs of infection and return for reevaluation. Follow-up with primary care routinely. Coding Level of Care Code ED Radial Drill Press Operator for Chg Fwd Documented by User: Nirmal Hall Artemio, DO 01/09/24 00:49 HPI - Wound/Laceration General: Chief Complaint: Wound/Laceration Stated Complaint: Lac left thumb Time Seen by Provider: 01/08/24 22:59 Related Data Home Medications Medication Instructions Recorded Confirmed naproxen 500 mg tablet 500 mg PO BID 12/16/21 12/20/23 meclizine 12.5 mg tablet 12.5 mg PO TID PRN 01/04/23 12/20/23 Previous Rx's Medication Instructions Recorded nebulizer and compressor #1 ea 12/12/19 hydrocodone 10 mg-acetaminophen 1 tab PO QID PRN pain 30 days #120 02/17/21 325 mg tablet tabs furosemide 40 mg tablet 40 mg PO DAILY #90 tabs 03/16/21 spironolactone 25 1 tab PO DAILY #90 tabs 07/08/21 mg-hydrochlorothiazide 25 mg tablet (Aldactazide) walker with wheels and the bench #1 ea 06/09/22 albuterol sulfate 90 mcg/actuation 1 - 2 puff inhalation Q6H PRN 10/05/22 aerosol inhaler (Ventolin HFA) shortness of breath or wheezing #8.5 grams tizanidine 4 mg capsule 4 mg PO BID PRN muscle spasticity 10/08/22 #60 caps albuterol sulfate 2.5 mg/0.5 mL 5 mg inhalation Q6H PRN shortness 11/08/22 solution for nebulization of breath or wheezing #30 ea ondansetron 4 mg disintegrating See Rx Instructions .Route 12/13/22 tablet .COMPLEX #9 tabs lamotrigine 200 mg tablet 200 mg PO DAILY #30 tabs 05/11/23 power chair #1 ea 07/21/23 ipratropium 20 mcg-albuterol 100 See Rx Instructions .Route 08/03/23 mcg/actuation mist for inhalation .COMPLEX #4 grams (Combivent Respimat) lamotrigine 50 mg tablet,extended 200 mg (4 x 50 mg) PO DAILY #120 09/05/23 release 24 hr (Lamictal XR) tabs tiotropium bromide 2.5 See Rx Instructions .Route 09/05/23 mcg/actuation mist for inhalation .COMPLEX #4 grams (Spiriva Respimat) omeprazole 40 mg capsule,delayed 40 mg PO DAILY #90 caps 12/06/23 release topiramate 200 mg tablet See Rx Instructions .Route 12/06/23 .COMPLEX #150 tabs sumatriptan succinate 25 mg tablet See Rx Instructions PO .COMPLEX #9 12/20/23 tabs cephalexin 500 mg capsule 500 mg PO BID 7 days #14 caps 01/08/24 Allergies Allergy/AdvReac Type Severity Reaction Status Date / Time No Known Allergies Allergy Verified 12/20/23 10:52 PFSH ED PFSH: Medical History Encounter for long-term (current) use of NSAIDs History of CVA (cerebrovascular accident) Hx of myocardial infarction GERD (gastroesophageal reflux disease) Fibromyalgia Seizures CAD (coronary artery disease) Sleep apnea Sleep apnea PTSD (post-traumatic stress disorder) Mitral valve prolapse Schizophrenia Encounter for long-term opiate analgesic use Pain management contract signed Chronic left shoulder pain Chronic neck pain Chronic low back pain with sciatica COPD (chronic obstructive pulmonary disease) Surgical History Hx of shoulder surgery History of oral surgery History of cholecystectomy History of hysterectomy Family History Father No problems noted. Mother No problems noted. Other Adopted Social History Smoking and tobacco/nicotine status: never used tobacco/nicotine Second hand smoke exposure: Yes Alcohol intake: never Substance/Drug Use: never Lives independently: Yes Marital status: Current occupational status: disabled Course Vital Signs: Vital signs: Vital Signs Temperature 97.6 F 01/08/24 22:58 Pulse Rate 86 01/08/24 22:58 Respiratory Rate 19 H 01/08/24 22:58 Blood Pressure 144/79 01/08/24 22:58 Pulse Oximetry 98 01/08/24 22:58 Oxygen Delivery Me thod Room Air 01/08/24 22:58 MDM - Wound/Laceration Medical Decision Making Lacerations to left thumb reported, patient cut with a knife. Tetanus was updated here. This was an old knife, and we will start her on some prophylactic antibiotics. Lacerations were entirely too superficial to repair, and the matrix of the nailbed was preserved meaning that the nail will continue to grow out and this would and fall off. Instructed patient on proper wound care, and all other questions and concerns addressed. This patient was originally seen by Mr. Michelle PA-C.? I agree with his history, evaluation, and treatment. Discharge Plan Discharge Patient Disposition: Home Clinical Impression: Laceration of left thumb Qualifiers: Encounter type: initial encounter Damage to nail status: with damage Foreign body presence: without foreign body Qualified Code(s): S61.112A - Laceration without foreign body of left thumb with damage to nail, initial encounter Prescriptions: New cephalexin 500 mg capsule 500 mg PO BID 7 Days Qty: 14 0RF No Action hydrocodone-acetaminophen 10-325 mg tablet 1 tab PO QID PRN (Reason: pain) 30 Days Qty: 120 0RF Rx Instructions: Fill on or after 03/05/21 furosemide 40 mg tablet 40 mg PO DAILY Qty: 90 6RF (DME) nebulizer and compressor Device See Rx Instructions .ROUTE .MEDSUPPLY Qty: 1 0RF Rx Instructions: As directed spironolacton-hydrochlorothiaz [Aldactazide] 25-25 mg tablet 1 tab PO DAILY Qty: 90 3RF (DME) walker with wheels and the bench See Rx Instructions .Route .MEDSUPPLY Qty: 1 0RF Rx Instructions: As directed naproxen 500 mg tablet 500 mg PO BID tizanidine 4 mg capsule 4 mg PO BID PRN (Reason: muscle spasticity) Qty: 60 4RF Rx Instructions: do not exceed 3 doses per 24 hrs albuterol sulfate [Ventolin HFA] 90 mcg/actuation HFA aerosol inhaler 1 - 2 puff inhalation Q6H PRN (Reason: shortness of breath or wheezing) Qty: 8.5 0RF meclizine 12.5 mg tablet 12.5 mg PO TID PRN sumatriptan succinate 25 mg tablet See Rx Instructions PO .COMPLEX Qty: 9 2RF Rx Instructions: take 1 tab at onset of headache; if no relief may repeat 1 tab after at least 2 hrs; max = 4 tabs/24 hr PO albuterol sulfate 2.5 mg/0.5 mL solution for nebulization 5 mg inhalation Q6H PRN (Reason: shortness of breath or wheezing) Qty: 30 1RF ondansetron 4 mg tablet,disintegrating See Rx Instructions .ROUTE .COMPLEX Qty: 9 0RF Dose Instruction: DISSOLVE ONE TABLET BY MOUTH EVERY 8 HOURS NEEDED FOR NAUSEA AND VOMITING FOR THREE DAYS Rx Instructions: DISSOLVE ONE TABLET BY MOUTH EVERY 8 HOURS NEEDED FOR NAUSEA AND VOMITING FOR THREE DAYS lamotrigine 200 mg tablet 200 mg PO DAILY Qty: 30 5RF Rx Instructions: take once at bedtime (DME) power chair See Rx Instructions .Route .MEDSUPPLY Qty: 1 0RF Rx Instructions: As directed 99 length of need Combivent Respimat 20-100 mcg/actuation mist See Rx Instructions .ROUTE .COMPLEX Qty: 4 5RF Hold Instructions: Dose Change Dose Instruction: INHALE 1 PUFF FOUR TIMES DAILY. SPACE EVENLY DURING WAKING HOURS Rx Instructions: INHALE 1 PUFF FOUR TIMES DAILY. SPACE EVENLY DURING WAKING HOURS lamotrigine [Lamictal XR] 50 mg tablet extended release 24hr 200 mg PO DAILY Qty: 120 3RF Spiriva Respimat 2.5 mcg/actuation mist See Rx Instructions .ROUTE .COMPLEX Qty: 4 4RF Hold Instructions: Dose Change Dose Instruction: INHALE TWO PUFFS EVERY DAY Rx Instructions: INHALE TWO PUFFS EVERY DAY omeprazole 40 mg capsule,delayed release(DR/EC) 40 mg PO DAILY Qty: 90 1RF topiramate 200 mg tablet See Rx Instructions .ROUTE .COMPLEX Qty: 150 0RF Dose Instruction: TAKE 1 TABLET BY MOUTH EVERY MORNING AND 1&1/2 EVERY EVENING Rx Instructions: TAKE 1 TABLET BY MOUTH EVERY MORNING AND 1&1/2 EVERY EVENING Discharge Orders: Discharge ED (Routine); Ordered 01/08/24 Ordered By: Juni Martinez Referrals: Gurmeet Epstein MD [Primary Care Provider] - Patient Instructions: Finger Laceration (ED) Activity Restrictions/Additional Instructions: Take antibiotics as prescribed. Keep wound clean and dry. Your nail will continue to grow out and injured part will fall off. Monitor for any signs of infection and return for reevaluation. Follow-up with primary care routinely. Coding Level of Care Code ED Radial Drill Press Operator for Mike Lin
[2024-01-08] MEDS: cephALEXin 500 mg Capsule PO (23:15)
[2024-01-08] MEDS: tetanus-dipt-pertussis 0.5 mL SDV IM (23:15)
== END 2024-01-08 23:27 | disposition home or self-care (01) ==
PROVIDERS: Emergency Provider Physician Assistant; PCP Internal Medicine
DX: S61.112A Laceration without foreign body of left thumb with damage to nail, initial encounter (principal); Z86.73 Personal history of transient ischemic attack (TIA), and cerebral infarction without residual deficits; I25.10 Atherosclerotic heart disease of native coronary artery without angina pectoris; I25.2 Old myocardial infarction; J44.9 Chronic obstructive pulmonary disease, unspecified; W26.0XXA Contact with knife, initial encounter
CPT/HCPCS: 90715; 99283; A6446

== ENCOUNTER → 2024-01-29 13:49 | Outpatient (BNVA) | payer MEDICAID, SELFPAY | PROVIDERS: PCP Internal Medicine | DX: J02.9 Acute pharyngitis, unspecified (principal) | CPT/HCPCS: 87880 ==

== ENCOUNTER 2024-02-03 08:30 | Oncology outpatient (recurring) (ONCR) | payer MEDICAID, SELFPAY ==
[2024-01-20 08:37] VITALS: BP 130/64; PULSE 77; RESP 16; TEMP 36.4; O2SAT 96
[2024-01-20] MEDS: iron sucrose 200 MG in sodium chloride 0.9% (100 ml) 100 ML 220 MG IV (09:18)
[2024-01-20 10:19] VITALS: BP 126/70; PULSE 71; RESP 16; TEMP 36.4; O2SAT 99
[2024-01-27 09:36] VITALS: BP 137/62; PULSE 60; RESP 15; TEMP 36.5; O2SAT 97
[2024-01-27] MEDS: iron sucrose 200 MG in sodium chloride 0.9% (100 ml) 100 ML 220 MG IV (10:20)
[2024-01-27 11:51] VITALS: BP 178/76; PULSE 72; RESP 16; TEMP 36.5
[2024-02-03 08:45] VITALS: BP 128/75; PULSE 67; RESP 16; TEMP 36.5; O2SAT 99
[2024-02-03] MEDS: iron sucrose 200 MG in sodium chloride 0.9% (100 ml) 100 ML 220 MG IV (09:59)
== END 2024-02-07 23:59 | disposition home or self-care (01) ==
PROVIDERS: PCP Internal Medicine; Visit Provider Family Medicine
DX: D50.9 Iron deficiency anemia, unspecified (principal); Z79.899 Other long term (current) drug therapy; Z53.9 Procedure and treatment not carried out, unspecified reason
CPT/HCPCS: 96365; J1756

== ENCOUNTER 2024-02-20 13:00 | Oncology outpatient (recurring) (ONCR) | payer MEDICAID, SELFPAY ==
[2024-02-10 09:07] VITALS: BP 132/83; PULSE 72; RESP 18; TEMP 36.6; O2SAT 100
[2024-02-10] MEDS: iron sucrose 200 MG in sodium chloride 0.9% (100 ml) 100 ML 220 MG IV (09:40)
[2024-02-10 10:49] VITALS: BP 153/73; PULSE 71; RESP 16; TEMP 36.2; O2SAT 97
[2024-02-20 13:24] VITALS: BP 130/77; PULSE 73; RESP 16; TEMP 36.6; O2SAT 97
[2024-02-20] MEDS: iron sucrose 200 MG in sodium chloride 0.9% (100 ml) 100 ML 220 MG IV (13:37)
[2024-02-20 14:51] VITALS: BP 130/77; PULSE 75; RESP 15; TEMP 36.2; O2SAT 97
== END 2024-03-09 23:59 | disposition home or self-care (01) ==
PROVIDERS: PCP Internal Medicine; Visit Provider Family Medicine
DX: D50.9 Iron deficiency anemia, unspecified (principal); Z79.899 Other long term (current) drug therapy; Z53.9 Procedure and treatment not carried out, unspecified reason
CPT/HCPCS: 96365; 96368; J1756

== ENCOUNTER 2024-03-02 20:28 | Emergency (ER) | payer MEDICAID, SELFPAY ==
[2024-03-02 20:49] VITALS: BP 154/79; PULSE 82; RESP 16; TEMP 36.6; O2SAT 97; BMI 35.6
--- NOTE | 2024-03-02 20:58 | XRR_ITS ---
PROCEDURE INFORMATION: Exam: XR Left Ankle Exam date and time: 03/02/2024 11:03 PM Age: 58 years old Clinical indication: Injury or trauma; Other: Blunt trauma; Left; Patient HX: Patient struck on lateral side of ankle by wheel of shopping cart. C/O ankle and foot pain. TECHNIQUE: Imaging protocol: Radiologic exam of the left ankle. Views: 3 or more views. COMPARISON: CR XR foot LT min 3V* [id number] 11/14/2017 10:12 PM FINDINGS: Bones/joints: Normal. Soft tissues: Normal. XR/XR ankle LT min 3V* [id number] IMPRESSION: No acute findings.
--- NOTE | 2024-03-02 23:12 | XRR_ITS ---
PROCEDURE INFORMATION: Exam: XR Left Foot Exam date and time: 03/02/2024 11:06 PM Age: 58 years old Clinical indication: Injury or trauma; Other: Blunt trauma; Left; Patient HX: Patient struck on lateral side of ankle by wheel of shopping cart. C/O ankle and foot pain. TECHNIQUE: Imaging protocol: Radiologic exam of the left foot. Views: 3 or more views. COMPARISON: CR XR foot LT min 3V* [id number] 11/14/2017 10:12 PM FINDINGS: Bones/joints: Normal. Soft tissues: Normal. XR/XR foot LT min 3V* [id number] IMPRESSION: No acute findings.
--- NOTE | 2024-03-02 23:57 | W.ED.EXTPRO ---
Documented by User: ALESSANDRO Hollins 03/03/24 00:00 HPI - Extremity Problem General: Chief complaint: Extremity Injury, Lower Stated complaint: left ankle injury Time Seen by Provider: 03/02/24 22:16 Source: patient Mode of arrival: ambulatory Limitations: no limitations History of Present Illness: Patient is a 58-year-old female who presents the emergency department complaining of left foot and ankle pain onset yesterday. Patient states she was struck in the foot by a shopping cart [facility], initially did not think much of this but pain steadily increased yesterday and throughout the day today. She has remained ambulatory, states that most of her pain is to the medial aspect of her left foot and ankle. Does not report taking any medications for her pain. No previous fractures or surgeries to the foot. No distal neurovascular symptoms reported. No other concerning historical elements or symptoms reported at this time. MD Complaint: extremity pain and joint pain Onset (ago): day(s) Pain Consistency: constant Location: left and lower extremity (Foot and ankle) Radiation: none Exacerbating factors: range of motion and weight bearing Associated symptoms: Deny chest pain, fever(s) or rash Related Data Home Medications Medication Instructions Recorded Confirmed naproxen 500 mg tablet 500 mg PO BID 12/16/21 02/06/24 meclizine 12.5 mg tablet 12.5 mg PO TID PRN 01/04/23 02/06/24 Previous Rx's Medication Instructions Recorded nebulizer and compressor #1 ea 12/12/19 hydrocodone 10 mg-acetaminophen 1 tab PO QID PRN pain 30 days #120 02/17/21 325 mg tablet tabs furosemide 40 mg tablet 40 mg PO DAILY #90 tabs 03/16/21 spironolactone 25 1 tab PO DAILY #90 tabs 07/08/21 mg-hydrochlorothiazide 25 mg tablet (Aldactazide) walker with wheels and the bench #1 ea 06/09/22 tizanidine 4 mg capsule 4 mg PO BID PRN muscle spasticity 10/08/22 #60 caps albuterol sulfate 2.5 mg/0.5 mL 5 mg inhalation Q6H PRN shortness 11/08/22 solution for nebulization of breath or wheezing #30 ea ondansetron 4 mg disintegrating See Rx Instructions .Route 11/06/23 tablet .COMPLEX #9 tabs power chair #1 ea 07/21/23 omeprazole 40 mg capsule,delayed 40 mg PO DAILY #90 caps 12/06/23 release topiramate 200 mg tablet See Rx Instructions .Route 12/06/23 .COMPLEX #150 tabs sumatriptan succinate 25 mg tablet See Rx Instructions PO .COMPLEX #9 12/20/23 tabs lamotrigine 200 mg tablet See Rx Instructions .Route 01/09/24 .COMPLEX #30 tabs lamotrigine 50 mg tablet,extended See Rx Instructions .Route 01/09/24 release 24 hr .COMPLEX #120 tabs tiotropium bromide 2.5 See Rx Instructions .Route 01/27/24 mcg/actuation mist for inhalation .COMPLEX #4 grams (Spiriva Respimat) ipratropium 0.5 mg-albuterol 3 mg 3 ml inhalation Q4H PRN wheezing 02/06/24 (2.5 mg base)/3 mL nebulization #90 mL soln ipratropium 20 mcg-albuterol 100 See Rx Instructions .Route 02/06/24 mcg/actuation mist for inhalation .COMPLEX #4 grams (Combivent Respimat) levofloxacin 750 mg tablet 750 mg PO DAILY #7 tabs 02/06/24 prednisone 20 mg tablet See Rx Instructions PO DAILY 10 02/06/24 days #15 tabs Allergies Allergy/AdvReac Type Severity Reaction Status Date / Time No Known Allergies Allergy Verified 03/02/24 20:54 Review of Systems General: Reports: 10 or more systems reviewed and unremarkable except in HPI and below Const: Denies: fever(s) or chills Card: Denies: chest pain Resp: Denies: dyspnea or productive cough GI: Denies: abdominal pain, nausea, vomiting or diarrhea : Denies: flank pain Musc: Reports: extremity pain (Left foot) and joint pain (Left ankle); Denies: neck pain, back pain, extremity swelling, joint swelling, joint redness, joint warmth, limited range of motion or muscle weakness Skin/Breast: Denies: rash Neuro: Denies: headache(s), numbness in extremities or weakness in extremities PFSH ED PFSH: Medical History Encounter for long-term (current) use of NSAIDs History of CVA (cerebrovascular accident) Hx of myocardial infarction GERD (gastroesophageal reflux disease) Fibromyalgia Seizures CAD (coronary artery disease) Sleep apnea Sleep apnea PTSD (post-traumatic stress disorder) Mitral valve prolapse Schizophrenia Encounter for long-term opiate analgesic use Pain management contract signed Chronic left shoulder pain Chronic neck pain Chronic low back pain with sciatica COPD (chronic obstructive pulmonary disease) Surgical History Hx of shoulder surgery History of oral surgery History of cholecystectomy History of hysterectomy Family History Father No problems noted. Mother No problems noted. Other Adopted Social History Smoking and tobacco/nicotine status: never used tobacco/nicotine Second hand smoke exposure: Yes Alcohol intake: never Substance/Drug Use: never Lives independently: Yes Marital status: Current occupational status: disabled Physical Exam Const: COMMON NORMALS: no acute distress, patient oriented x3, no limitations, healthy appearing, alert and well nourished HENMT: COMMON NORMALS: normocephalic and atraumatic HEAD & SCALP: normocephalic and atraumatic Neck/C-Spine: COMMON NORMALS: full ROM, supple and no meningeal signs Resp: COMMON NORMALS: normal respiratory effort, No use of accessory muscles and clear to auscultation bilaterally AUSCULTATION: clear to auscultation bilaterally Cardio: COMMON NORMALS: regular rate and regular rhythm RATE: regular rate RHYTHM: regular rhythm Extremity: COMMON NORMALS: normal to inspection, full ROM, capillary refill normal, no joint enlargement and no clubbing, cyanosis or edema NARRATIVE EXTREMITY EXAM: Normal visual examination of the left foot and ankle. Reproducible tenderness to palpation to the medial foot as well as to the medial malleolus. There is no bruising or swelling appreciated at this time. Observed normal gait walking to vertical flow. Pulses normal. Good strength. Neuro: COMMON NORMALS: patient oriented x3, moves all extremities, no focal motor deficits and no sensory deficits noted SENSORIUM/ORIENTATION: Yes alert MENINGEAL SIGNS: Yes no meningeal signs Skin: COMMON NORMALS: no rashes or lesions noted GENERAL SKIN EXAM: no rashes or lesions noted Course Vital Signs: Vital signs: Vital Signs Temperature 97.9 F 03/02/24 20:49 Pulse Rate 70 03/03/24 00:06 Respiratory Rate 16 03/02/24 20:49 Blood Pressure 130/68 03/03/24 00:06 Pulse Oximetry 99 03/03/24 00:06 MDM - Extremity (Nontraumatic) Medical Decision Making There were no acute findings on x-ray of patient's foot and ankle, likely this is a contusion suffered from the shopping cart and instructed patient on conservative measures to take. Informed her to follow-up with primary care and return with any new or worsening. Lab Data Radiology Impressions Ankle X-Ray 03/02/24 20:58 IMPRESSION: No acute findings. Foot X-Ray 03/02/24 23:12 IMPRESSION: No acute findings. All radiology interpretation(s) finalized by discharge Discharge Plan Discharge Patient Disposition: Home Clinical Impression: Acute pain of left foot Condition: Stable Prescriptions: No Action hydrocodone-acetaminophen 10-325 mg tablet 1 tab PO QID PRN (Reason: pain) 30 Days Qty: 120 0RF Rx Instructions: Fill on or after 03/05/21 furosemide 40 mg tablet 40 mg PO DAILY Qty: 90 6RF (DME) nebulizer and compressor Device See Rx Instructions .ROUTE .MEDSUPPLY Qty: 1 0RF Rx Instructions: As directed spironolacton-hydrochlorothiaz [Aldactazide] 25-25 mg tablet 1 tab PO DAILY Qty: 90 3RF (DME) walker with wheels and the bench See Rx Instructions .Route .MEDSUPPLY Qty: 1 0RF Rx Instructions: As directed naproxen 500 mg tablet 500 mg PO BID tizanidine 4 mg capsule 4 mg PO BID PRN (Reason: muscle spasticity) Qty: 60 4RF Rx Instructions: do not exceed 3 doses per 24 hrs meclizine 12.5 mg tablet 12.5 mg PO TID PRN sumatriptan succinate 25 mg tablet See Rx Instructions PO .COMPLEX Qty: 9 2RF Rx Instructions: take 1 tab at onset of headache; if no relief may repeat 1 tab after at least 2 hrs; max = 4 tabs/24 hr PO ipratropium-albuterol 0.5 mg-3 mg(2.5 mg base)/3 mL solution for nebulization 3 ml inhalation Q4H PRN (Reason: wheezing) Qty: 90 3RF prednisone 20 mg tablet See Rx Instructions PO DAILY 10 Days Qty: 15 0RF Rx Instructions: take TWO tables qAM x 5 days, then ONE tablet by mouth x 5 days orally daily; levofloxacin 750 mg tablet 750 mg PO DAILY Qty: 7 0RF albuterol sulfate 2.5 mg/0.5 mL solution for nebulization 5 mg inhalation Q6H PRN (Reason: shortness of breath or wheezing) Qty: 30 1RF ondansetron 4 mg tablet,disintegrating See Rx Instructions .ROUTE .COMPLEX Qty: 9 0RF Dose Instruction: DISSOLVE ONE TABLET BY MOUTH EVERY 8 HOURS NEEDED FOR NAUSEA AND VOMITING FOR THREE DAYS Rx Instructions: DISSOLVE ONE TABLET BY MOUTH EVERY 8 HOURS NEEDED FOR NAUSEA AND VOMITING FOR THREE DAYS (DME) power chair See Rx Instructions .Route .MEDSUPPLY Qty: 1 0RF Rx Instructions: As directed 99 length of need omeprazole 40 mg capsule,delayed release(DR/EC) 40 mg PO DAILY Qty: 90 1RF topiramate 200 mg tablet See Rx Instructions .ROUTE .COMPLEX Qty: 150 0RF Dose Instruction: TAKE 1 TABLET BY MOUTH EVERY MORNING AND 1&1/2 EVERY EVENING Rx Instructions: TAKE 1 TABLET BY MOUTH EVERY MORNING AND 1&1/2 EVERY EVENING lamotrigine 200 mg tablet See Rx Instructions .ROUTE .COMPLEX Qty: 30 5RF Dose Instruction: TAKE 1 TABLET BY MOUTH AT BEDTIME Rx Instructions: TAKE 1 TABLET BY MOUTH AT BEDTIME lamotrigine 50 mg tablet extended release 24hr See Rx Instructions .ROUTE .COMPLEX Qty: 120 5RF Dose Instruction: TAKE 4 TABLETS BY MOUTH EVERY DAY Rx Instructions: TAKE 4 TABLETS BY MOUTH EVERY DAY Spiriva Respimat 2.5 mcg/actuation mist See Rx Instructions .ROUTE .COMPLEX Qty: 4 4RF Hold Instructions: Dose Change Dose Instruction: INHALE TWO PUFFS EVERY DAY Rx Instructions: INHALE TWO PUFFS EVERY DAY Combivent Respimat 20-100 mcg/actuation mist See Rx Instructions .ROUTE .COMPLEX Qty: 4 5RF Hold Instructions: Dose Change Dose Instruction: INHALE 1 PUFF FOUR TIMES DAILY. SPACE EVENLY DURING WAKING HOURS Rx Instructions: INHALE 1 PUFF FOUR TIMES DAILY. SPACE EVENLY DURING WAKING HOURS Discharge Orders: Discharge ED (Routine); Ordered 03/02/24 Ordered By: Juni Martinez Referrals: Gurmeet Epstein MD [Primary Care Provider] - Patient Instructions: Pain Management Activity Restrictions/Additional Instructions: Rest, ice, compression, and elevation. Take ibuprofen or Tylenol. Follow-up with primary care. 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 [employer] Documented by User: Brent Mckeon DO 03/03/24 07:56 HPI - Extremity Problem General: Chief complaint: Extremity Injury, Lower Stated complaint: left ankle injury Time Seen by Provider: 03/02/24 22:16 Related Data Home Medications Medication Instructions Recorded Confirmed naproxen 500 mg tablet 500 mg PO BID 12/16/21 02/06/24 meclizine 12.5 mg tablet 12.5 mg PO TID PRN 01/04/23 02/06/24 Previous Rx's Medication Instructions Recorded nebulizer and compressor #1 ea 12/12/19 hydrocodone 10 mg-acetaminophen 1 tab PO QID PRN pain 30 days #120 02/17/21 325 mg tablet tabs furosemide 40 mg tablet 40 mg PO DAILY #90 tabs 03/16/21 spironolactone 25 1 tab PO DAILY #90 tabs 07/08/21 mg-hydrochlorothiazide 25 mg tablet (Aldactazide) walker with wheels and the bench #1 ea 06/09/22 tizanidine 4 mg capsule 4 mg PO BID PRN muscle spasticity 10/08/22 #60 caps albuterol sulfate 2.5 mg/0.5 mL 5 mg inhalation Q6H PRN shortness 11/08/22 solution for nebulization of breath or wheezing #30 ea ondansetron 4 mg disintegrating See Rx Instructions .Route 12/13/22 tablet .COMPLEX #9 tabs power chair #1 ea 07/21/23 omeprazole 40 mg capsule,delayed 40 mg PO DAILY #90 caps 12/06/23 release topiramate 200 mg tablet See Rx Instructions .Route 12/06/23 .COMPLEX #150 tabs sumatriptan succinate 25 mg tablet See Rx Instructions PO .COMPLEX #9 12/20/23 tabs lamotrigine 200 mg tablet See Rx Instructions .Route 01/09/24 .COMPLEX #30 tabs lamotrigine 50 mg tablet,extended See Rx Instructions .Route 01/09/24 release 24 hr .COMPLEX #120 tabs tiotropium bromide 2.5 See Rx Instructions .Route 01/27/24 mcg/actuation mist for inhalation .COMPLEX #4 grams (Spiriva Respimat) ipratropium 0.5 mg-albuterol 3 mg 3 ml inhalation Q4H PRN wheezing 02/06/24 (2.5 mg base)/3 mL nebulization #90 mL soln ipratropium 20 mcg-albuterol 100 See Rx Instructions .Route 02/06/24 mcg/actuation mist for inhalation .COMPLEX #4 grams (Combivent Respimat) levofloxacin 750 mg tablet 750 mg PO DAILY #7 tabs 02/06/24 prednisone 20 mg tablet See Rx Instructions PO DAILY 10 02/06/24 days #15 tabs Allergies Allergy/AdvReac Type Severity Reaction Status Date / Time No Known Allergies Allergy Verified 03/02/24 20:54 PFS ED PFSH: Medical History Encounter for long-term (current) use of NSAIDs History of CVA (cerebrovascular accident) Hx of myocardial infarction GERD (gastroesophageal reflux disease) Fibromyalgia Seizures CAD (coronary artery disease) Sleep apnea Sleep apnea PTSD (post-traumatic stress disorder) Mitral valve prolapse Schizophrenia Encounter for long-term opiate analgesic use Pain management contract signed Chronic left shoulder pain Chronic neck pain Chronic low back pain with sciatica COPD (chronic obstructive pulmonary disease) Surgical History Hx of shoulder surgery History of oral surgery History of cholecystectomy History of hysterectomy Family History Father No problems noted. Mother No problems noted. Other Adopted Social History Smoking and tobacco/nicotine status: never used tobacco/nicotine Second hand smoke exposure: Yes Alcohol intake: never Substance/Drug Use: never Lives independently: Yes Marital status: Current occupational status: disabled Course Vital Signs: Vital signs: Vital Signs Temperature 97.9 F 03/02/24 20:49 Pulse Rate 70 03/03/24 00:06 Respiratory Rate 16 03/02/24 20:49 Blood Pressure 130/68 03/03/24 00:06 Pulse Oximetry 99 03/03/24 00:06 MDM - Extremity (Nontraumatic) Medical Decision Making There were no acute findings on x-ray of patient's foot and ankle, likely this is a contusion suffered from the shopping cart and instructed patient on conservative measures to take. Informed her to follow-up with primary care and return with any new or worsening. Chart reviewed Lab Data Radiology Impressions Ankle X-Ray 03/02/24 20:58 IMPRESSION: No acute findings. Foot X-Ray 03/02/24 23:12 IMPRESSION: No acute findings. Discharge Plan Discharge Patient Disposition: Home Clinical Impression: Acute pain of left foot Condition: Stable Prescriptions: No Action hydrocodone-acetaminophen 10-325 mg tablet 1 tab PO QID PRN (Reason: pain) 30 Days Qty: 120 0RF Rx Instructions: Fill on or after 03/05/21 furosemide 40 mg tablet 40 mg PO DAILY Qty: 90 6RF (DME) nebulizer and compressor Device See Rx Instructions .ROUTE .MEDSUPPLY Qty: 1 0RF Rx Instructions: As directed spironolacton-hydrochlorothiaz [Aldactazide] 25-25 mg tablet 1 tab PO DAILY Qty: 90 3RF (DME) walker with wheels and the bench See Rx Instructions .Route .MEDSUPPLY Qty: 1 0RF Rx Instructions: As directed naproxen 500 mg tablet 500 mg PO BID tizanidine 4 mg capsule 4 mg PO BID PRN (Reason: muscle spasticity) Qty: 60 4RF Rx Instructions: do not exceed 3 doses per 24 hrs meclizine 12.5 mg tablet 12.5 mg PO TID PRN sumatriptan succinate 25 mg tablet See Rx Instructions PO .COMPLEX Qty: 9 2RF Rx Instructions: take 1 tab at onset of headache; if no relief may repeat 1 tab after at least 2 hrs; max = 4 tabs/24 hr PO ipratropium-albuterol 0.5 mg-3 mg(2.5 mg base)/3 mL solution for nebulization 3 ml inhalation Q4H PRN (Reason: wheezing) Qty: 90 3RF prednisone 20 mg tablet See Rx Instructions PO DAILY 10 Days Qty: 15 0RF Rx Instructions: take TWO tables qAM x 5 days, then ONE tablet by mouth x 5 days orally daily; levofloxacin 750 mg tablet 750 mg PO DAILY Qty: 7 0RF albuterol sulfate 2.5 mg/0.5 mL solution for nebulization 5 mg inhalation Q6H PRN (Reason: shortness of breath or wheezing) Qty: 30 1RF ondansetron 4 mg tablet,disintegrating See Rx Instructions .ROUTE .COMPLEX Qty: 9 0RF Dose Instruction: DISSOLVE ONE TABLET BY MOUTH EVERY 8 HOURS NEEDED FOR NAUSEA AND VOMITING FOR THREE DAYS Rx Instructions: DISSOLVE ONE TABLET BY MOUTH EVERY 8 HOURS NEEDED FOR NAUSEA AND VOMITING FOR THREE DAYS (DME) power chair See Rx Instructions .Route .MEDSUPPLY Qty: 1 0RF Rx Instructions: As directed 99 length of need omeprazole 40 mg capsule,delayed release(DR/EC) 40 mg PO DAILY Qty: 90 1RF topiramate 200 mg tablet See Rx Instructions .ROUTE .COMPLEX Qty: 150 0RF Dose Instruction: TAKE 1 TABLET BY MOUTH EVERY MORNING AND 1&1/2 EVERY EVENING Rx Instructions: TAKE 1 TABLET BY MOUTH EVERY MORNING AND 1&1/2 EVERY EVENING lamotrigine 200 mg tablet See Rx Instructions .ROUTE .COMPLEX Qty: 30 5RF Dose Instruction: TAKE 1 TABLET BY MOUTH AT BEDTIME Rx Instructions: TAKE 1 TABLET BY MOUTH AT BEDTIME lamotrigine 50 mg tablet extended release 24hr See Rx Instructions .ROUTE .COMPLEX Qty: 120 5RF Dose Instruction: TAKE 4 TABLETS BY MOUTH EVERY DAY Rx Instructions: TAKE 4 TABLETS BY MOUTH EVERY DAY Spiriva Respimat 2.5 mcg/actuation mist See Rx Instructions .ROUTE .COMPLEX Qty: 4 4RF Hold Instructions: Dose Change Dose Instruction: INHALE TWO PUFFS EVERY DAY Rx Instructions: INHALE TWO PUFFS EVERY DAY Combivent Respimat 20-100 mcg/actuation mist See Rx Instructions .ROUTE .COMPLEX Qty: 4 5RF Hold Instructions: Dose Change Dose Instruction: INHALE 1 PUFF FOUR TIMES DAILY. SPACE EVENLY DURING WAKING HOURS Rx Instructions: INHALE 1 PUFF FOUR TIMES DAILY. SPACE EVENLY DURING WAKING HOURS Discharge Orders: Discharge ED (Routine); Ordered 03/02/24 Ordered By: Juni Martinez Referrals: Gurmeet Epstein MD [Primary Care Provider] - Patient Instructions: Pain Management Activity Restrictions/Additional Instructions: Rest, ice, compression, and elevation. Take ibuprofen or Tylenol. Follow-up with primary care. 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
[2024-03-03 00:06] VITALS: BP 130/68; PULSE 70; O2SAT 99
== END 2024-03-03 00:08 | disposition home or self-care (01) ==
PROVIDERS: Emergency Provider Physician Assistant; PCP Internal Medicine
DX: M79.672 Pain in left foot (principal); I25.10 Atherosclerotic heart disease of native coronary artery without angina pectoris; J44.9 Chronic obstructive pulmonary disease, unspecified; Z86.73 Personal history of transient ischemic attack (TIA), and cerebral infarction without residual deficits
CPT/HCPCS: 73610; 73630; 99283

== ENCOUNTER → 2024-04-10 13:18 | Outpatient (BNVA) | payer MEDICAID, SELFPAY | PROVIDERS: PCP Internal Medicine; Visit Provider Student in an Organized Health Care Education/Training Program | DX: M17.11 Unilateral primary osteoarthritis, right knee (principal) | CPT/HCPCS: 99214 ==

== ENCOUNTER → 2024-05-02 13:46 | Outpatient (BNVA) | payer MEDICAID, SELFPAY | PROVIDERS: PCP Internal Medicine; Visit Provider Family Medicine | DX: D50.9 Iron deficiency anemia, unspecified (principal); K21.9 Gastro-esophageal reflux disease without esophagitis | CPT/HCPCS: 80053; 82728; 83550; 85025 ==

== ENCOUNTER 2024-05-04 08:18 | Oncology outpatient (recurring) (ONCR) | payer MEDICAID, SELFPAY ==
[2024-04-27 08:49] VITALS: BP 157/95; PULSE 66; RESP 16; TEMP 36.6; O2SAT 99
[2024-04-27] MEDS: iron sucrose 200 MG in sodium chloride 0.9% (100 ml) 100 ML IV (09:21)
[2024-04-27 09:57] VITALS: BP 162/83; PULSE 66; TEMP 36.6
--- NOTE | 2024-05-03 08:15 | CT_ITS ---
WS: [id number] CT RIGHT [facility] TECHNIQUE: Noncontrast CT of the RIGHT knee to include the RIGHT hip and ankle. CLINICAL INFORMATION: RIGHT TOTAL KNEE ARTHROPLASTY SURGICAL PLANNING DLP: 1025.[address] scans at [facility] use at least one of these dose optimization techniques: automated exposure control; mA and/or kV adjustment per patient size (includes targeted exams where dose is matched to clinical indication); or iterative reconstruction. FINDINGS: Moderate to advanced tricompartment arthritis RIGHT knee worse in the medial joint compartment. Slight hypertrophic patella. Tiny suprapatellar effusion. Hypertrophic changes along the joint line. CT/CT knee RT JAYY [id number] IMPRESSION: Images obtained for preoperative purposes.
[2024-05-04 09:14] VITALS: BP 147/86; PULSE 65; RESP 17; TEMP 36.5; O2SAT 98
[2024-05-04] MEDS: iron sucrose 200 MG in sodium chloride 0.9% (100 ml) 100 ML IV (09:14)
[2024-05-04 09:53] VITALS: BP 146/82; PULSE 75; RESP 17; TEMP 36.4; O2SAT 97
== END 2024-05-07 23:59 | disposition home or self-care (01) ==
LOC: ONCMED 08:18
PROVIDERS: PCP Internal Medicine; Visit Provider Student in an Organized Health Care Education/Training Program
DX: Z53.9 Procedure and treatment not carried out, unspecified reason; D50.9 Iron deficiency anemia, unspecified; Z79.899 Other long term (current) drug therapy
CPT/HCPCS: 73700; 96365; J1756

== ENCOUNTER 2024-05-18 08:15 | Oncology outpatient (recurring) (ONCR) | payer MEDICAID, SELFPAY ==
[2024-05-11] MEDS: iron sucrose 200 MG in sodium chloride 0.9% (100 ml) 100 ML IV (09:06)
[2024-05-11 09:45] VITALS: BP 139/78; PULSE 86; RESP 16; TEMP 36.7; O2SAT 96
[2024-05-18] MEDS: iron sucrose 200 MG in sodium chloride 0.9% (100 ml) 100 ML IV (09:01)
[2024-05-18 10:49] VITALS: BP 112/66; PULSE 68; RESP 16; TEMP 36.5; O2SAT 95
== END 2024-06-06 23:59 | disposition home or self-care (01) ==
PROVIDERS: PCP Internal Medicine; Visit Provider Student in an Organized Health Care Education/Training Program
DX: Z53.9 Procedure and treatment not carried out, unspecified reason; D50.9 Iron deficiency anemia, unspecified; Z79.899 Other long term (current) drug therapy
CPT/HCPCS: 96365; J1756

== ENCOUNTER 2024-05-26 17:45 | Emergency (ER) | payer MEDICAID, SELFPAY ==
--- NOTE | 2024-05-26 17:54 | XRR_ITS ---
PROCEDURE INFORMATION: Exam: XR Right Hand Exam date and time: 05/26/2024 6:07 PM Age: 58 years old Clinical indication: Right; RT hand pain near 4th/5th metatarsals; No known injury; Previous FX x 5yrs ago TECHNIQUE: Imaging protocol: Radiologic exam of the right hand. Views: 3 or more views. COMPARISON: No relevant prior studies available. FINDINGS: Bones/joints: No acute fracture or subluxation. No periosteal reaction or callus formation. Degenerative changes of the hand appropriate for age. Marginal osteophytes along the 5th PIP and DIP joints Soft tissues: Soft tissue swelling along the 5th D IP joint. XR/XR hand RT min 3V* [id number] IMPRESSION: No acute fracture or subluxation.
--- NOTE | 2024-05-26 17:54 | W.ED.UPPEXIN ---
HPI - Extremity Injury (Upper) General: Chief Complaint: Extremity Problem,Nontraumatic Stated Complaint: pain in right hand Time Seen by Provider: 05/26/24 17:50 Source: patient Mode of arrival: ambulatory Limitations: no limitations History of Present Illness: 56-year-old female who states that she has been having right hand pain over the last 3 to 4 days. She states she gets pain in that hand at times states the pain is worse over her thumb denies any specific injury states it is worse with using that hand. Denies any fevers. Associated symptoms: Denies neck pain Related Data Home Medications ?Medication ?Instructions ?Recorded ?Confirmed naproxen 500 mg tablet 500 mg PO BID 12/16/21 05/02/24 meclizine 12.5 mg tablet 12.5 mg PO TID PRN 01/04/23 05/02/24 Previous Rx's ?Medication ?Instructions ?Recorded nebulizer and compressor #1 ea 12/12/19 hydrocodone 10 mg-acetaminophen 1 tab PO QID PRN pain 30 days #120 02/17/21 325 mg tablet tabs furosemide 40 mg tablet 40 mg PO DAILY #90 tabs 03/16/21 spironolactone 25 1 tab PO DAILY #90 tabs 07/08/21 mg-hydrochlorothiazide 25 mg tablet (Aldactazide) walker with wheels and the bench #1 ea 06/09/22 tizanidine 4 mg capsule 4 mg PO BID PRN muscle spasticity 10/08/22 #60 caps albuterol sulfate 2.5 mg/0.5 mL 5 mg inhalation Q6H PRN shortness 11/08/22 solution for nebulization of breath or wheezing #30 ea ondansetron 4 mg disintegrating See Rx Instructions .Route 12/13/22 tablet .COMPLEX #9 tabs power chair #1 ea 07/21/23 omeprazole 40 mg capsule,delayed 40 mg PO DAILY #90 caps 12/06/23 release topiramate 200 mg tablet See Rx Instructions .Route 12/06/23 .COMPLEX #150 tabs sumatriptan succinate 25 mg tablet See Rx Instructions PO .COMPLEX #9 12/20/23 tabs lamotrigine 200 mg tablet See Rx Instructions .Route 01/09/24 .COMPLEX #30 tabs lamotrigine 50 mg tablet,extended See Rx Instructions .Route 01/09/24 release 24 hr .COMPLEX #120 tabs tiotropium bromide 2.5 See Rx Instructions .Route 01/27/24 mcg/actuation mist for inhalation .COMPLEX #4 grams (Spiriva Respimat) ipratropium 0.5 mg-albuterol 3 mg 3 ml inhalation Q4H PRN wheezing 02/06/24 (2.5 mg base)/3 mL nebulization #90 mL soln ipratropium 20 mcg-albuterol 100 See Rx Instructions .Route 02/06/24 mcg/actuation mist for inhalation .COMPLEX #4 grams (Combivent Respimat) levofloxacin 750 mg tablet 750 mg PO DAILY #7 tabs 02/06/24 naproxen 500 mg tablet (Naprosyn) 500 mg PO BID PRN pain #20 tabs 05/26/24 Allergies Allergy/AdvReac Type Severity Reaction Status Date / Time No Known Allergies Allergy Verified 05/02/24 13:09 Review of Systems Const: Denies: fever(s), chills, body aches or change in appetite ENMT: Denies: throat pain or dental pain Card: Denies: chest pain Resp: Denies: dyspnea GI: Denies: abdominal pain, nausea, vomiting or diarrhea Musc: Reports: extremity pain; Denies: neck pain or back pain Skin/Breast: Denies: rash Neuro: Denies: headache(s) PFSH ED PFSH: Medical History Encounter for long-term (current) use of NSAIDs History of CVA (cerebrovascular accident) Hx of myocardial infarction GERD (gastroesophageal reflux disease) Fibromyalgia Seizures CAD (coronary artery disease) Sleep apnea Sleep apnea PTSD (post-traumatic stress disorder) Mitral valve prolapse Schizophrenia Encounter for long-term opiate analgesic use Pain management contract signed Chronic left shoulder pain Chronic neck pain Chronic low back pain with sciatica COPD (chronic obstructive pulmonary disease) Surgical History Hx of shoulder surgery History of oral surgery History of cholecystectomy History of hysterectomy Family History Father No problems noted. Mother No problems noted. Other Adopted Social History Smoking and tobacco/nicotine status: never used tobacco/nicotine Second hand smoke exposure: Yes Alcohol intake: never Substance/Drug Use: never Lives independently: Yes Marital status: Current occupational status: disabled Physical Exam Const: COMMON NORMALS: no acute distress, patient oriented x3 and healthy appearing HENMT: COMMON NORMALS: normocephalic and atraumatic HEAD & SCALP: normocephalic and atraumatic Eye: COMMON NORMALS: conjunctivae normal CONJUNCTIVA: Yes conjunctivae normal Chest: COMMONS NORMALS: normal inspection of the chest Resp: COMMON NORMALS: normal respiratory effort Cardio: COMMON NORMALS: regular rate RATE: regular rate Extremity: COMMON NORMALS: normal to inspection and full ROM NARRATIVE EXTREMITY EXAM: No obvious deformity to the right hand no warmth to touch no tenderness to touch on exam Neuro: COMMON NORMALS: patient oriented x3, moves all extremities and no focal motor deficits Psych: COMMON NORMALS: mental status grossly normal, Normal thought process present and cooperative THOUGHT PROCESS: Normal thought process present Skin: COMMON NORMALS: no rashes or lesions noted and no wounds GENERAL SKIN EXAM: no rashes or lesions noted Course Vital Signs: Vital signs: Vital Signs Temperature 98.1 F 05/26/24 17:55 Pulse Rate 69 05/26/24 17:55 Respiratory Rate 18 05/26/24 17:55 Blood Pressure 165/87 05/26/24 17:55 Pulse Oximetry 95 05/26/24 17:55 Oxygen Delivery Me thod Room Air 05/26/24 17:55 MDM - Extremity Injury (Upper) Medical Decision Making Patient presents with hand pain likely arthralgias she is well-appearing here we will place her on Naprosyn x-ray shows no fracture she stable for discharge follow-up PCP return if worsening Medical Records I reviewed the patient's medical records. XR interpretation done by ED provider, pending radiology final review ED provider radiology interpretation(s): xr r hand: no acute abnormality Discharge Plan Discharge Patient Disposition: Home Clinical Impression: Hand pain, right Condition: Stable Prescriptions: New naproxen [Naprosyn] 500 mg tablet 500 mg PO BID PRN (Reason: pain) Qty: 20 0RF No Action hydrocodone-acetaminophen 10-325 mg tablet 1 tab PO QID PRN (Reason: pain) 30 Days Qty: 120 0RF Rx Instructions: Fill on or after 03/05/21 furosemide 40 mg tablet 40 mg PO DAILY Qty: 90 6RF (DME) nebulizer and compressor Device See Rx Instructions .ROUTE .MEDSUPPLY Qty: 1 0RF Rx Instructions: As directed spironolacton-hydrochlorothiaz [Aldactazide] 25-25 mg tablet 1 tab PO DAILY Qty: 90 3RF (DME) walker with wheels and the bench See Rx Instructions .Route .MEDSUPPLY Qty: 1 0RF Rx Instructions: As directed naproxen 500 mg tablet 500 mg PO BID tizanidine 4 mg capsule 4 mg PO BID PRN (Reason: muscle spasticity) Qty: 60 4RF Rx Instructions: do not exceed 3 doses per 24 hrs meclizine 12.5 mg tablet 12.5 mg PO TID PRN sumatriptan succinate 25 mg tablet See Rx Instructions PO .COMPLEX Qty: 9 2RF Rx Instructions: take 1 tab at onset of headache; if no relief may repeat 1 tab after at least 2 hrs; max = 4 tabs/24 hr PO ipratropium-albuterol 0.5 mg-3 mg(2.5 mg base)/3 mL solution for nebulization 3 ml inhalation Q4H PRN (Reason: wheezing) Qty: 90 3RF levofloxacin 750 mg tablet 750 mg PO DAILY Qty: 7 0RF albuterol sulfate 2.5 mg/0.5 mL solution for nebulization 5 mg inhalation Q6H PRN (Reason: shortness of breath or wheezing) Qty: 30 1RF ondansetron 4 mg tablet,disintegrating See Rx Instructions .ROUTE .COMPLEX Qty: 9 0RF Dose Instruction: DISSOLVE ONE TABLET BY MOUTH EVERY 8 HOURS NEEDED FOR NAUSEA AND VOMITING FOR THREE DAYS Rx Instructions: DISSOLVE ONE TABLET BY MOUTH EVERY 8 HOURS NEEDED FOR NAUSEA AND VOMITING FOR THREE DAYS (DME) power chair See Rx Instructions .Route .MEDSUPPLY Qty: 1 0RF Rx Instructions: As directed 99 length of need omeprazole 40 mg capsule,delayed release(DR/EC) 40 mg PO DAILY Qty: 90 1RF topiramate 200 mg tablet See Rx Instructions .ROUTE .COMPLEX Qty: 150 0RF Dose Instruction: TAKE 1 TABLET BY MOUTH EVERY MORNING AND 1&1/2 EVERY EVENING Rx Instructions: TAKE 1 TABLET BY MOUTH EVERY MORNING AND 1&1/2 EVERY EVENING lamotrigine 200 mg tablet See Rx Instructions .ROUTE .COMPLEX Qty: 30 5RF Dose Instruction: TAKE 1 TABLET BY MOUTH AT BEDTIME Rx Instructions: TAKE 1 TABLET BY MOUTH AT BEDTIME lamotrigine 50 mg tablet extended release 24hr See Rx Instructions .ROUTE .COMPLEX Qty: 120 5RF Dose Instruction: TAKE 4 TABLETS BY MOUTH EVERY DAY Rx Instructions: TAKE 4 TABLETS BY MOUTH EVERY DAY Spiriva Respimat 2.5 mcg/actuation mist See Rx Instructions .ROUTE .COMPLEX Qty: 4 4RF Dose Instruction: INHALE TWO PUFFS EVERY DAY Rx Instructions: INHALE TWO PUFFS EVERY DAY Combivent Respimat 20-100 mcg/actuation mist See Rx Instructions .ROUTE .COMPLEX Qty: 4 5RF Dose Instruction: INHALE 1 PUFF FOUR TIMES DAILY. SPACE EVENLY DURING WAKING HOURS Rx Instructions: INHALE 1 PUFF FOUR TIMES DAILY. 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
[2024-05-26 17:55] VITALS: BP 165/87; PULSE 69; RESP 18; TEMP 36.7; O2SAT 95
[2024-05-26] MEDS: ketorolac 30 mg/mL INJ IM (18:21)
[2024-05-26 18:30] VITALS: BP 160/83; PULSE 70; O2SAT 96
== END 2024-05-26 18:31 | disposition home or self-care (01) ==
PROVIDERS: Emergency Provider Emergency Medicine; PCP Internal Medicine
DX: M79.641 Pain in right hand (principal); J44.9 Chronic obstructive pulmonary disease, unspecified; I25.10 Atherosclerotic heart disease of native coronary artery without angina pectoris; Z86.73 Personal history of transient ischemic attack (TIA), and cerebral infarction without residual deficits
CPT/HCPCS: 73130; 96372; 99284; J1885

== ENCOUNTER 2024-05-30 16:34 | Outpatient (CLI) | payer MEDICAID, SELFPAY ==
[2024-05-30 17:29] LABS: Basophils % 0.4 %; Eosinophils # 0.2 10^3/uL (0.0-0.8); Eosinophils % 1.8 %; Lymphocytes # 1.2 10^3/uL (0.8-4.8); Lymphocytes % 15.2 %; Mean Corpuscular HGB Conc 31.7 g/dL (30-55); Mean Corpuscular Hemoglobin 28.6 pg (27-33); Mean Corpuscular Volume 90.1 fl (85-98); Mean Platelet Volume 9.4 fL (7.4-10.4); Monocytes # 0.6 10^3/uL (0.2-0.9); Monocytes % 6.9 %; Neutrophils # 6.11 10^3/uL (1.8-7.7); Nucleated Red Blood Cells % 0 %; Platelet Count 214 10^3/cmm (157-399); Red Blood Count 4.55 10^6/uL (3.85-5.65); Red Cell Distribution Width 13.7 % (12.1-15.1); White Blood Count 8.15 10^3/uL (3.29-11.43)
[2024-05-30 17:51] LABS: Iron 82 ug/dL (37-145); Percent Saturation 37.7 % (20-50); Total Iron Binding Capacity 217 mcg/dl; Unsaturated Iron Binding 135 ug/dL (112-347)
[2024-05-30 18:06] LABS: Vitamin B12 363 pg/mL (232-1245)
== END 2024-05-30 16:35 | disposition home or self-care (01) ==
PROVIDERS: PCP Internal Medicine; Visit Provider Internal Medicine
DX: D50.9 Iron deficiency anemia, unspecified (principal); Z01.818 Encounter for other preprocedural examination
CPT/HCPCS: 36415; 82607; 83540; 83550; 85025

== ENCOUNTER → 2024-05-31 14:35 | Outpatient (BNVA) | payer MEDICAID, SELFPAY | PROVIDERS: PCP Internal Medicine; Referring Provider Internal Medicine; Visit Provider Nurse Practitioner Family | DX: L30.8 Other specified dermatitis (principal); L21.8 Other seborrheic dermatitis; L57.8 Other skin changes due to chronic exposure to nonionizing radiation; L81.4 Other melanin hyperpigmentation; D22.5 Melanocytic nevi of trunk | CPT/HCPCS: 99203 ==

== ENCOUNTER 2024-07-20 09:55 | Outpatient (CLI) | payer MEDICAID, SELFPAY ==
--- NOTE | 2024-07-20 10:04 | MM_ITS ---
WS: [id number] BILATERAL 3D TOMOSYNTHESIS DIGITAL SCREENING MAMMOGRAPHY WITH CAD CLINICAL INFORMATION: SCREENING HISTORY: Screening mammogram. No current complaints. COMPARISON: 2013 TECHNIQUE: Bilateral CC and MLO views. FINDINGS: Scattered fibroglandular densities bilaterally. No suspicious focal mass, asymmetry, calcifications, or architectural distortion. No evidence of malignancy. MM/MM scr BI tomosynthesis [id number] IMPRESSION: DENSITY: There are scattered areas of fibroglandular density. BI-RADS: 1 - Negative. FOLLOW UP: 1 Year Follow-up Recommend return to annual screening mammography.
== END 2024-07-20 09:56 | disposition home or self-care (01) ==
LOC: RAD 09:57
PROVIDERS: PCP Internal Medicine; Visit Provider Internal Medicine
DX: Z12.31 Encounter for screening mammogram for malignant neoplasm of breast (principal); R92.323 Mammographic fibroglandular density, bilateral breasts
CPT/HCPCS: 77063; 77067

== ENCOUNTER → 2024-09-03 14:34 | Outpatient (BNVA) | payer MEDICAID, SELFPAY | PROVIDERS: PCP Family Medicine; Visit Provider Psychiatry & Neurology Neurology | DX: G40.919 Epilepsy, unspecified, intractable, without status epilepticus (principal) | CPT/HCPCS: 36415; 80175; 80201; 99212 ==

== ENCOUNTER → 2024-09-04 12:49 | Outpatient (BNVA) | payer MEDICAID, SELFPAY | PROVIDERS: PCP Family Medicine; Referring Provider Psychiatry & Neurology Neurology; Visit Provider Psychiatry & Neurology Neurology | DX: R56.9 Unspecified convulsions (principal) | CPT/HCPCS: 95813; 95819 ==

== ENCOUNTER 2024-09-10 07:59 | Outpatient (CLI) | payer MEDICAID, SELFPAY | END 2024-09-10 08:00 | disposition home or self-care (01) | LOC: LAB 08:00 | PROVIDERS: PCP Family Medicine; Visit Provider Psychiatry & Neurology Neurology | DX: G40.919 Epilepsy, unspecified, intractable, without status epilepticus (principal) | CPT/HCPCS: 36415; 80175; 80201; 99212 ==

== ENCOUNTER → 2024-09-20 13:13 | Outpatient (BNVA) | payer MEDICAID, SELFPAY | PROVIDERS: PCP Family Medicine; Visit Provider Nurse Practitioner Family | DX: L30.8 Other specified dermatitis (principal); L57.8 Other skin changes due to chronic exposure to nonionizing radiation; L81.4 Other melanin hyperpigmentation; L21.8 Other seborrheic dermatitis; D69.2 Other nonthrombocytopenic purpura | CPT/HCPCS: 99214 ==